=== PATIENT | female | born 1950 | race African-American/Black ===

== ENCOUNTER 2016-06-21 07:49 | Inpatient (IN) | payer MEDICARE, BC, OTHER ==
[2016-06-21] VITALS (24 sets, daily range): BP systolic 49–195; BP diastolic 28–153; PULSE 78–118; RESP 16–20; TEMP 94.1–98.1; O2SAT 70–100
[~2016-06-21] VITALS: Ht 157.5 cm; Wt 93.8 kg
[~2016-06-21 07:49] MED LIST: BENZ2 PO; ESTR0.62 PV; GABA400C5 PO; MOBI15TA PO; SODIUM BICARBONATE 8.4% INJ 50 MEQ/50 ML SYR IV ONE; TRAZ100 PO; ZYPR15TA PO
[2016-06-21] MEDS ORDERED: SODIUM CHLOR 0.9% 1000 ML INJ 1,000 ML IV ONE ×2 (08:00→09:15)
[2016-06-21] MEDS ORDERED: SODIUM CHLORIDE 0.9% FLUSH 5 ML FLUSH IVF PRN (08:00)
--- NOTE | 2016-06-21 08:05 | PD ---
HPI Chief Complaint: Code Blue Time Seen by Provider: 07:52 Travel History International Travel<30 days: No Contact w/Intl Traveler<30days: No Traveled to known affect area: No History of Present Illness HPI 65-year-old female presents to the ER brought in by EMS as a post code. Apparently, patient was found unresponsive by family, CPR initiated by family, and EMS arrived and continued CPR. After 2 rounds of epi and CPR, patient regained a pulse and has a sinus rhythm. She was intubated by EMS. Down time is unknown. Initial rhythm was asystole. Patient is unable to give me any further history, intubated. Family had stated that she has psychiatric history. Modifying Factors: None Associated Signs & Symptoms: Asystolic code, intubated Risk Factors: Unknown PFSH Past Medical History Bipolar Disorder: Yes Psychiatric: Yes Menopausal: Yes : 0 Social History Alcohol Use: Yes (2 x a week) Tobacco Use: No Substance Use: No Allergies-Medications (Allergen,Severity, Reaction): Coded Allergies: No Known Allergies (Verified , 11/05/13) Reported Meds & Prescriptions Reported Meds & Active Scripts Active Active Prescriptions or Reported Medications Unobtainable Review of Systems ROS Limitations: Intubated (unable to give history) Physical Exam Narrative GENERAL: Elderly -[place] female who is intubated, unresponsive, post CPR. SKIN: Warm and dry. HEAD: Atraumatic. Normocephalic. EYES: Pupils equal and round, not reactive to light bilaterally. No scleral icterus. No injection or drainage. ENT: No nasal bleeding or discharge. Mucous membranes pink and moist. Intubated. NECK: Trachea midline. No JVD. CARDIOVASCULAR: Regular rate and rhythm. No murmur appreciated. RESPIRATORY: On ventilator. Clear to auscultation. Breath sounds equal bilaterally. GASTROINTESTINAL: Abdomen soft, non-tender, nondistended. Hepatic and splenic margins not palpable. MUSCULOSKELETAL: No obvious deformities. No clubbing. No cyanosis. No edema. NEUROLOGICAL: Unresponsive, intubated. PSYCHIATRIC: Unable to perform. Data Data Last Documented VS Vital Signs Date Time Temp Pulse Resp B/P Pulse Ox O2 Delivery O2 Flow Rate FiO2 06/21/16 09:15 88 16 68/46 100 Auto-Vent 70 06/21/16 07:49 97.7 Orders Electrocardiogram (06/21/16 07:52) Complete Blood Count With Diff (06/21/16 07:52) Comprehensive Metabolic Panel (06/21/16 07:52) Prothrombin Time / Inr (Pt) (06/21/16:52) Act Partial Throm Time (Ptt) (06/21/16 07:52) Troponin I (06/21/16 07:52) Urinalysis - C+S If Indicated (06/21/16 07:52) Arterial Blood Gas (Abg) (06/21/16 07:52) Chest, Single Ap (06/21/16 07:52) Blood Glucose (06/21/16:52) Ecg Monitoring (06/21/16:52) Iv Access Insert/Monitor (06/21/16:52) Oximetry (06/21/16:52) Urinary Catheter Insert/Apply (06/21/16 07:52) Sodium Chloride 0.9% Flush (Ns Flush) (06/21/16 08:00) Drug Screen, Random Urine (06/21/16 07:52) Alcohol (Ethanol) (06/21/16 07:52) Sodium Chlor 0.9% 1000 Ml Inj (Ns 1000 M (06/21/16 08:00) Salicylates (Aspirin) (06/21/16 08:05) Ct Brain W/O Iv Contrast(Rout) (06/21/16 ) Tylenol (Acetaminophen) (06/21/16 08:00) Sodium Chlor 0.9% 1000 Ml Inj (Ns 1000 M (06/21/16 09:15) Dopamine Inj Premix (Dopamine Inj Premix (06/21/16 09:15) Terbutaline Inj (Brethine Inj) (06/21/16 09:15) Water Sterile For I... W/Sodium Bicarbon (06/21/16 09:15) Sodium Bicarbonate 8.4% Inj (Sodium Bica (06/21/16 09:30) Sodium Bicarbonate 8.4% Inj (Sodium Bica (06/21/16 09:30) Sodium Bicarbonate 8.4% Inj (Sodium Bica (06/21/16 09:30) Restraints Non-Violent AGGIE.Q3H (06/21/16 09:23) Admit Order (Ed Use Only) (06/21/16 09:26) Labs Laboratory Tests Test 06/21/16 06/21/16 08:00 08:15 White Blood Count 10.2 TH/MM3 Red Blood Count 3.42 MIL/MM3 Hemoglobin 10.1 GM/DL Hematocrit 30.9 % Mean Corpuscular Volume 90.5 FL Mean Corpuscular Hemoglobin 29.6 PG Mean Corpuscular Hemoglobin 32.7 % Concent Red Cell Distribution Width 13.9 % Platelet Count 288 TH/MM3 Mean Platelet Volume 8.3 FL Neutrophils (%) (Auto) 58.9 % Lymphocytes (%) (Auto) 35.0 % Monocytes (%) (Auto) 4.1 % Eosinophils (%) (Auto) 1.6 % Basophils (%) (Auto) 0.4 % Neutrophils # (Auto) 6.0 TH/MM3 Lymphocytes # (Auto) 3.6 TH/MM3 Monocytes # (Auto) 0.4 TH/MM3 Eosinophils # (Auto) 0.2 TH/MM3 Basophils # (Auto) 0.0 TH/MM3 CBC Comment AUTO DIFF Differential Comment AUTO DIFF CONFIRMED Prothrombin Time 12.0 SEC Prothromb Time International 1.1 RATIO Ratio Activated Partial 31.3 SEC Thromboplast Time Sodium Level 145 MEQ/L Potassium Level 3.9 MEQ/L Chloride Level 109 MEQ/L Carbon Dioxide Level 15.8 MEQ/L Anion Gap 20 MEQ/L Blood Urea Nitrogen 13 MG/DL Creatinine 1.25 MG/DL Estimat Glomerular Filtration 52 ML/MIN Rate Random Glucose 247 MG/DL Calcium Level 8.2 MG/DL Total Bilirubin 0.2 MG/DL Aspartate Amino Transf 492 U/L (AST/SGOT) Alanine Aminotransferase 508 U/L (ALT/SGPT) Alkaline Phosphatase 59 U/L Troponin I 0.16 NG/ML Total Protein 5.8 GM/DL Albumin 2.4 GM/DL Salicylates Level LESS THAN 1.7 MG/DL Acetaminophen Level 2.8 MCG/ML Ethyl Alcohol Level LESS THAN 3 MG/DL Urine Color LIGHT-YELLOW Urine Turbidity CLEAR Urine pH 7.0 Urine Specific [place] 1.010 Urine Protein 300 mg/dL Urine Glucose (UA) NEG mg/dL Urine Ketones NEG mg/dL Urine Occult Blood SMALL Urine Nitrite NEG Urine Bilirubin NEG Urine Urobilinogen LESS THAN 2.0 MG/DL Urine Leukocyte Esterase NEG Urine RBC 5 /hpf Urine WBC 2 /hpf Urine Bacteria RARE /hpf Urine Hyaline Casts 1 /lpf Urine Mucus FEW /lpf Microscopic Urinalysis Comment CULT NOT INDICATED Blood Gas Puncture Site LT RADIAL Blood Gas Patient Temperature 98.6 Blood Gas HCO3 14 mmol/L Blood Gas Base Excess -13.6 mmol/L Blood Gas Oxygen Saturation 98 % Arterial Blood pH 7.14 Arterial Blood Partial 43 mmHg Pressure CO2 Arterial Blood Partial 180 mmHG Pressure O2 Arterial Blood Oxygen Content 13.0 Vol % Arterial Blood 0.2 % Carboxyhemoglobin Arterial Blood Methemoglobin 0.2 % Blood Gas Hemoglobin 9.1 G/DL Oxygen Delivery Device VENTILATOR Blood Gas Ventilator Setting PRVC/AC Blood Gas Inspired Oxygen 70 % Urine Opiates Screen NEG Urine Barbiturates Screen NEG Urine Amphetamines Screen NEG Urine Benzodiazepines Screen NEG Urine Cocaine Screen NEG Urine Cannabinoids Screen NEG MDM Medical Decision Making Medical Screen Exam Complete: Yes Emergency Medical Condition: Yes Medical Record Reviewed: Yes Interpretation(s) EKG shows NSR, no acute ST elevation or depression, and no arrhythmias. No significant T-wave inversions. Laboratory Tests Test 06/21/16 06/21/16 08:00 08:15 Red Blood Count 3.42 MIL/MM3 (4.00-5.30) Hemoglobin 10.1 GM/DL (11.6-15.3) Hematocrit 30.9 % (35.0-46.0) Prothrombin Time 12.0 SEC (9.8-11.6) Activated Partial 31.3 SEC Thromboplast Time (24.3-30.1) Chloride Level 109 MEQ/L (98-107) Carbon Dioxide Level 15.8 MEQ/L (21.0-32.0) Anion Gap 20 MEQ/L (5-15) Creatinine 1.25 MG/DL (0.50-1.00) Estimat Glomerular Filtration 52 ML/MIN (>89) Rate Random Glucose 247 MG/DL (74-106) Calcium Level 8.2 MG/DL (8.5-10.1) Aspartate Amino Transf 492 U/L (15-37) (AST/SGOT) Alanine Aminotransferase 508 U/L (10-53) (ALT/SGPT) Troponin I 0.16 NG/ML (0.02-0.05) Total Protein 5.8 GM/DL (6.4-8.2) Albumin 2.4 GM/DL (3.4-5.0) Salicylates Level LESS THAN 1.7 MG/DL (2.8-20.0) Acetaminophen Level 2.8 MCG/ML (10.0-30.0) Urine Protein 300 mg/dL (NEG-TRACE) Urine Occult Blood SMALL (NEG) Urine RBC 5 /hpf (0-3) Urine Bacteria RARE /hpf (NONE) Urine Mucus FEW /lpf (OCC) Blood Gas HCO3 14 mmol/L (22-26) Blood Gas Base Excess -13.6 mmol/L (-2-2) Arterial Blood pH 7.14 (7.380-7.420) Arterial Blood Partial 43 mmHg (38-42) Pressure CO2 Arterial Blood Partial 180 mmHG Pressure O2 (61-120) Blood Gas Hemoglobin 9.1 G/DL (12.0-16.0) Last 24 hours Impressions Chest X-Ray 06/21/16 0752 Signed Impressions: Service Date/Time: Tuesday, June 21, 2016 07:55 - CONCLUSION: Perihilar interstitial/alveolar prominence. Mild air space disease left lung base. Satisfactory position of endotracheal and nasogastric tubes. Avila Lake MD Differential Diagnosis Asystolic codeelectrolyte abnormalities versus dysrhythmias versus overdose Narrative Course Lab work indicates significant acidosis and it appears to be metabolic, several amps of IV bicarbonate was given. Her blood pressure was fairly low in the ER and boluses of IV fluids were initiated. Dopamine was given to help increase her blood pressure. Chest x-ray shows that her ET tube is in place. Lab work otherwise shows elevated troponins, likely secondary to post code situation. Patient was initially discussed with Dr. Alcaraz for admission. However, Patient' s CAT scan returns showing intracranial bleeding. And neurosurgery was called regarding the patient. Case is then discussed with PA for Dr. Matamoros, who is currently in the OR, and they state they will follow. I have discussed the patient's finding at length with family, patient's aunt, who is in the room to see her. I have discussed the critical nature of the patient currently and patients and states understanding. Aggregate critical care time was 35 minutes. Time to perform other separately billable procedures was not included in the critical care time. My time did not include minutes spent treating any other patients simultaneously or on activities that did not directly contribute to the patient's treatment. The services I provided to this patient were to treat and/or prevent clinically significant deterioration that could result in: Cardiac arrest, intracranial hemorrhage, herniation, I provided critical care services requiring my management, as noted below: Chart data review, documentation time, medication orders and management, vital sign assessments/reviewing monitor data, ordering and reviewing lab tests, ordering and interpreting/reviewing x-rays and diagnostic studies, care of the patient and discussion of the patient with the admitting physicians. Procedures EKG Prior to Arrival: Yes Diagnosis Primary Impression: NONTRAUMATIC INTRACRANIAL HEMORRHAGE, UNSPECIFIED Additional Impression: Cardiac asystole Admitting Information Admitting Physician Requests: Admit Scripts Unable to Obtain Active Prescriptions or Reported Meds Steph Win MD Jun 21, 2016 08:05
[2016-06-21 08:18] LABS: BASOPHIL % 0.4 % (0.0-2.0); EOSINOPHIL # 0.2 TH/MM3 (0-0.4); EOSINOPHIL % 1.6 % (0.0-4.0); HEMATOCRIT 30.9 % (35.0-46.0); LYMPHOCYTE # 3.6 TH/MM3 (1.0-4.8); MEAN CELL VOLUME 90.5 FL (80.0-100.0); MEAN CORPUSCULAR HEMOGLOBIN 29.6 PG (27.0-34.0); MEAN CORPUSCULAR HGB CONC 32.7 % (32.0-36.0); MONO % 4.1 % (0.0-8.0); NEUT % 58.9 % (16.0-70.0); PLATELET COUNT 288 TH/MM3 (150-450); RED BLOOD COUNT 3.42 MIL/MM3 (4.00-5.30); RED CELL DISTRIBUTION WIDTH 13.9 % (11.6-17.2); WHITE BLOOD COUNT 10.2 TH/MM3 (4.0-11.0)
[2016-06-21 08:22] LABS: HEMO FLAGS AUTO DIFF
[2016-06-21 08:28] LABS: BLOOD GAS BASE EXCESS -13.6 mmol/L (-2-2); BLOOD GAS CARBOXYHEMOGLOBIN 0.2 % (0-4); BLOOD GAS HCO3 14 mmol/L (22-26); BLOOD GAS METHEMOGLOBIN 0.2 % (0-2); BLOOD GAS O2 HGB SATURATION 98 % (90-100); BLOOD GAS PCO2 43 mmHg (38-42); BLOOD GAS PO2 180 mmHG (61-120); BLOOD GAS TOTAL HGB 9.1 G/DL (12.0-16.0); TEMP CORR TO 98.6
[2016-06-21 08:29] LABS: CRITICAL VALUE YES; DRAW SITE LT RADIAL; FIO2 70 %; NUMBER OF ARTERIAL PUNCTURES 1; OXYGEN DEVICE VENTILATOR; STAT YES; ULNAR PULSE PRESENT; VENT SETTINGS PRVC/AC
[2016-06-21 08:31] LABS: ALT (GPT) 508 U/L (10-53); ANION GAP 20 MEQ/L (5-15); AST (GOT) 492 U/L (15-37); BICARBONATE 15.8 MEQ/L (21.0-32.0); BLOOD UREA NITROGEN 13 MG/DL (7-18); CHLORIDE 109 MEQ/L (98-107); GLOMERULAR FILTRATION RATE 52 ML/MIN (>89); POTASSIUM 3.9 MEQ/L (3.5-5.1); SODIUM (NA) 145 MEQ/L (136-145)
--- NOTE | 2016-06-21 08:32 | RADRPT ---
EXAM DATE/TIME: 06/21/2016 07:55 [facility] COMPARISON: CHEST SINGLE AP, November 05, 2013, 16:34. INDICATIONS : Post intubation. MEDICAL HISTORY : unobtainable SURGICAL HISTORY : unobtainable ENCOUNTER: Initial ACUITY: 1 day PAIN SCORE: Non-responsive. LOCATION: chest FINDINGS: Endotracheal and nasogastric tubes have been inserted and appear to be in satisfactory position. There is perihilar interstitial and alveolar prominence. Developing airspace disease is seen in the l eft base. Heart is normal in size. CONCLUSION: Perihilar interstitial/alveolar prominence. Mild air space disease left lung base. Satisfactory position of endotracheal and nasogastric tubes. Avila Lake MD on June 21, 2016 at 8:29 Board Certified Radiologist. This report was verified electronically.
[2016-06-21 08:33] LABS: APTT (PATIENT) 31.3 SEC (24.3-30.1); INTERNATIONAL NORMALIZED RATIO 1.1 RATIO
[2016-06-21 08:35] LABS: ALKALINE PHOSPHATASE 59 U/L (45-117); TOTAL BILIRUBIN ADULT 0.2 MG/DL (0.2-1.0)
[2016-06-21 08:44] LABS: ACETAMINOPHEN 2.8 MCG/ML (10.0-30.0)
[2016-06-21 08:48] LABS: BACTERIA, URINE RARE /hpf; BLOOD, URINE SMALL (NEG); GLUCOSE,URINE NEG (NEG); HYALINE CAST, URINE 1 /lpf (RARE); KETONE, URINE NEG (NEG); MUCUS URINE FEW /lpf (OCC); NITRITE,URINE NEG (NEG); URINE COLOR LIGHT-YELLOW (YELLW/STRAW)
[2016-06-21 08:55] LABS: SCAN/DIFF AUTO DIFF CONFIRMED
[2016-06-21 08:57] LABS: COMMENT (UR) CULT NOT INDICATED; CULTURE IF INDICATED CULT NOT INDICATED
--- NOTE | 2016-06-21 09:11 | RADRPT ---
EXAM DATE/TIME: 06/21/2016 08:39 [facility] COMPARISON: No previous studies available for comparison. INDICATIONS : Post-code. RADIATION DOSE: 45.51 CTDIvol (mGy) MEDICAL HISTORY : Non-responsive. SURGICAL HISTORY : Non-responsive. ENCOUNTER: Initial ACUITY: 1 day PAIN SCALE: Non-responsive LOCATION: cranial TECHNIQUE: Multiple contiguous axial images were obtained of the head. Using automated exposure control and adj ustment of the mA and/or kV according to patient size, radiation dose was kept as low as reasonably a chievable to obtain optimal diagnostic quality images. FINDINGS: There is an acute proximal hemorrhage in the left side of the cerebellum that measures 3 x 5.2 cm in size. There is a large amount of subarachnoid blood in the posterior fossa and also supratentorial at the skull base. Large amount of subarachnoid blood seen between the leaves of the tentorium and also the leads of the falx. There is about 9 mm of rightward cerebellar shift and with mass effect seen o n the brainstem. Supratentorial, no significant midline shift is demonstrated. The left cerebellar hemorrhage is somewhat masslike. No other evidence of mass lesion. No eviden ce of an acute ischemic event. Mucoperiosteal thickening seen of the visualized paranasal sinuses. CONCLUSION: Large parenchymal hemorrhage of the left cerebellar hemisphere with midline shift and mass effect on the brainstem. There is a large amount of posterior fossa and supratentorial subarachnoid blood. Deondre Coronado MD on June 21, 2016 at 9:06 Board Certified Radiologist. This report was verified electronically.
[2016-06-21] MEDS ORDERED: TERBUTALINE INJ 1 MG/ML AMP SQ PRN ×2 (09:15→10:15)
[2016-06-21] MEDS ORDERED: DOPamine INJ PREMIX 500 ML IV SCH (09:15)
[2016-06-21] MEDS ORDERED: SODIUM BICARBONATE 8.4% INJ 50 MEQ/50 ML SYR IV PUSH ONE ×3 (09:30)
[2016-06-21 09:33] LABS: AMPHETAMINE, URINE NEG (NEG); BARBITURATES, URINE NEG (NEG); COCAINE, URINE NEG (NEG)
[2016-06-21] MEDS: SODIUM BICARBONATE 8.4% INJ 150 MEQ in WATER STERILE FOR INJ 850 ML IV SCH ×2 (09:39→15:55)
[2016-06-21] MEDS ORDERED: SODIUM CHLORIDE 0.9% FLUSH 5 ML FLUSH IV FLUSH PRN (10:00)
[2016-06-21] MEDS ORDERED: CHLORHEXIDINE GLUCONATE 2 % 1 PACK (2 CLOTHS) TOP PRN (10:00)
[2016-06-21] MEDS ORDERED: RESP: ALBUTEROL 2.5 MG/IPRATROPIUM 0.5 MG NEB (PRN) INH (10:00)
[2016-06-21] MEDS ORDERED: ACETAMINOPHEN 325 MG TAB PO PRN (10:00)
[2016-06-21] MEDS ORDERED: METOCLOPRAMIDE HCL 10 MG/2 ML VIAL IV PRN (10:00)
[2016-06-21] MEDS: DOCUSATE SODIUM 100 MG/10 ML UDC G-TUBE SCH ×2 (10:00→19:38)
[2016-06-21] MEDS ORDERED: ONDANSETRON HCL 4 MG/2 ML VIAL IV PRN (10:00)
[2016-06-21] MEDS ORDERED: MORPHINE SULFATE 4 MG/ML INJ IV PRN (10:00)
[2016-06-21] MEDS ORDERED: LORazepam 2 MG/ML VIAL IV PRN (10:00)
[2016-06-21] MEDS ORDERED: MISCELLANEOUS NURSING INFORMATION XX SCH (10:00)
--- NOTE | 2016-06-21 10:08 | PD.CONS ---
HPI Service neurosurgery Consult Requested By Irene Gallegos Reason for Consult Intracerebral bleed Primary Care Physician Gurwinder Lindo III, MD Review of Systems Not possible due to the patient's condition ROS Limitations: Clinical Condition, Intubated, Altered Mental Status, Unresponsive Past Family Social History Allergies: Coded Allergies: No Known Allergies (Verified , 11/05/13) Past Medical History Unobtainable Past Surgical History Unobtainable due to her condition Reported Medications Unobtainable due to her condition Active Ordered Medications Current Medications IV Flush 2 ml 2 ml UNSCH PRN IVF FLUSH AFTER USING IV ACCESS; Start 06/21/16 at 08:00; Stop 06/21/16 at 14:04; Status DC Sodium Chloride 1,000 ml @ 999 mls/hr BOLUS ONCE IV Last administered on 06/21 08:20; Start 06/21/16 at 08:00; Stop 06/21/16 at 09:00; Status DC Sodium Chloride 1,000 ml @ 999 mls/hr BOLUS ONCE IV Last administered on 06/21 09:11; Start 06/21/16 at 09:15; Stop 06/21/16 at 10:17; Status DC Dopamine HCl/ Dextrose (DOPamine INJ PREMIX) 500 ml @ 0 mls/hr TITRATE IV Last administered on 06/21/16 09:10; Start 06/21/16 at 09:15; Stop 06/21/16 at 14:04 ; Status DC Terbutaline Sulfate 1 mg 1 mg UNSCH PRN SQ For Extravasation; Start 06/21/16 at 09:15 Sodium Bicarbonate/ Sterile Water (Sodium Bicarbonate 8.4% Inj/Sterile Water For Inj) 1,000 ml @ 150 mls/hr Q6H40M IV Last administered on 06/21/16 09:39 ; Start 06/21/16 at 09:15 Sodium Bicarbonate (Sodium Bicarbonate 8.4% Inj) 50 meq ONCE ONCE IV PUSH Last administered on 06/21/16 09:40; Start 06/21/16 at 09:30; Stop 06/21/16 at 09:31; Status DC Sodium Bicarbonate (Sodium Bicarbonate 8.4% Inj) 50 meq ONCE ONCE IV PUSH Last administered on 06/21/16 09:40; Start 06/21/16 at 09:30; Stop 06/21/16 at 09:31; Status DC Sodium Bicarbonate 50 meq 50 meq ONCE ONCE IV PUSH Last administered on 09:40; Start 06/21/16 at 09:30; Stop 06/21/16 at 09:31; Status DC Sodium Chloride (NS 1000 ml Inj) 1,000 ml @ 185 mls/hr Q5H25M IV Last administered on 06/21/16 11:16; Start 06/21/16 at 09:56 IV Flush (NS Flush) 2 ml UNSCH PRN IV FLUSH FLUSH AFTER USING IV ACCESS; Start 06/21/16 at 10:00 IV Flush (NS Flush) 2 ml BID IV FLUSH ; Start 06/21/16 at 21:00 Acetaminophen (Tylenol) 650 mg Q6H PRN PO PAIN 1-10 AND/OR FEVER >101F; Start 06/21/16 at 10:00 Morphine Sulfate (Morphine Inj) 2 mg Q2H PRN IV PAIN SCALE 6 TO 10; Start 06/21 at 10:00 Famotidine (Pepcid Inj) 20 mg Q12HR IV PUSH ; Start 06/21/16 at 21:00 Lorazepam (Ativan Inj) 1 mg Q1H PRN IV Agitation/Sedation; Start 06/21/16 at 10 :00 Artificial Tears (Tears Naturale Opth Soln) 1 drop TID EACH EYE ; Start at 13:00 Ondansetron HCl (Zofran Inj) 4 mg Q6H PRN IV NAUSEA OR VOMITING; Start at 10:00 Metoclopramide HCl (Reglan Inj) 10 mg Q6H PRN IV NAUSEA OR VOMITING; Start 01/28 at 10:00 Docusate Sodium (Colace Liq) 100 mg Q12H G-TUBE ; Start 06/21/16 at 10:00 Albuterol/ Ipratropium (Duoneb Neb) 1 ampule Q2HR NEB PRN INH WHEEZING; Start 06/21/16 at 10:00 Miscellaneous Information 1 Q361D XX ; Start 06/21/16 at 10:00 Chlorhexidine Gluconate (Chlorhexidine 2% Cloth) 3 pack Taper DAILY@04 TOP ; Start 06/22/16 at 04:00; Stop 06/18/17 at 03:59 Chlorhexidine Gluconate 3 pack 3 pack UNSCH PRN TOP HYGIENIC CARE; Start at 10:00 Dopamine HCl/ Dextrose (DOPamine INJ PREMIX) 500 ml @ 0 mls/hr TITRATE IV ; Start 06/21/16 at 10:15 Terbutaline Sulfate 1 mg 1 mg UNSCH PRN SQ For Extravasation; Start 06/21/16 at 10:15 Mannitol (Osmitrol Inj) 450 ml @ 500 mls/hr Q54M ONCE IV Last administered on 06/21/16t 13:37; Start 06/21/16 at 13:30; Stop 06/21/16 at 14:23; Status DC Family History Unobtainable due to her condition Social History Unobtainable due to her condition Physical Exam Vital Signs Vital Signs Date Time Temp Pulse Resp B/P Pulse Ox O2 Delivery O2 Flow Rate FiO2 06/21/16 09:55 101 16 108/58 100 Auto-Vent 70 06/21/16 09:41 107 16 92/67 100 Auto-Vent 70 06/21/16 09:15 88 16 68/46 100 Auto-Vent 70 06/21/16 08:45 94 16 63/40 100 Auto-Vent 70 06/21/16 08:40 100 16 74/48 100 Auto-Vent 70 06/21/16 08:35 101 16 69/42 100 Auto-Vent 70 06/21/16 08:30 100 100 06/21/16 08:18 105 16 73/42 100 Auto-Vent 70 06/21/16 08:02 96 70 06/21/16 07:49 94 Auto-Vent 06/21/16 07:49 97.7 89 18 49/28 94 06/21/16 07:49 93 18 94 Auto-Vent 06/21/16 07:49 98 18 54/33 94 Auto-Vent 06/21/16 07:49 70 Physical Exam The patient is intubated,. No response to painful stimuli Cranial Nerves: Pupils equal, round, 6mm dilated and fixed. Eyes appear non- conjugated. There was no nystagmus, papilledema. Face musculature appeared symmetrical at rest. Face sensation, olfaction, visual lane, and hearing cannot be adequately assessed due to his neurological condition. The patient has no corneal reflex. She has no gag reflex. The sternocleidomastoid and trapezius are symmetrical. Cervical Spine: Her neck is soft, supple, without nuchal rigidity. Motor: No response to pain Reflexes: Deep tendon reflexes are abolished in the biceps, triceps, and brachioradialis, bilaterally, in the upper extremities. In the lower extremities, the patellar and ankles are absent bilaterally. There is a bilateral silent plantar response. There is no clonus Sensory: On examination there is no response to painful stimuli Cerebellar: Examination cannot be adequately assessed due to the patient's neurological condition. Laboratory Laboratory Tests Test 06/21/16 06/21/16 08:00 08:15 White Blood Count 10.2 Red Blood Count 3.42 Hemoglobin 10.1 Hematocrit 30.9 Mean Corpuscular Volume 90.5 Mean Corpuscular Hemoglobin 29.6 Mean Corpuscular Hemoglobin 32.7 Concent Red Cell Distribution Width 13.9 Platelet Count 288 Mean Platelet Volume 8.3 Neutrophils (%) (Auto) 58.9 Lymphocytes (%) (Auto) 35.0 Monocytes (%) (Auto) 4.1 Eosinophils (%) (Auto) 1.6 Basophils (%) (Auto) 0.4 Neutrophils # (Auto) 6.0 Lymphocytes # (Auto) 3.6 Monocytes # (Auto) 0.4 Eosinophils # (Auto) 0.2 Basophils # (Auto) 0.0 CBC Comment AUTO DIFF Differential Comment AUTO DIFF CONFIRMED Prothrombin Time 12.0 Prothromb Time International 1.1 Ratio Activated Partial 31.3 Thromboplast Time Sodium Level 145 Potassium Level 3.9 Chloride Level 109 Carbon Dioxide Level 15.8 Anion Gap 20 Blood Urea Nitrogen 13 Creatinine 1.25 Estimat Glomerular Filtration 52 Rate Random Glucose 247 Calcium Level 8.2 Total Bilirubin 0.2 Aspartate Amino Transf 492 (AST/SGOT) Alanine Aminotransferase 508 (ALT/SGPT) Alkaline Phosphatase 59 Troponin I 0.16 Total Protein 5.8 Albumin 2.4 Salicylates Level LESS THAN 1.7 Acetaminophen Level 2.8 Ethyl Alcohol Level LESS THAN 3 Urine Color LIGHT-YELLOW Urine Turbidity CLEAR Urine pH 7.0 Urine Specific [place] 1.010 Urine Protein 300 Urine Glucose (UA) NEG Urine Ketones NEG Urine Occult Blood SMALL Urine Nitrite NEG Urine Bilirubin NEG Urine Urobilinogen LESS THAN 2.0 Urine Leukocyte Esterase NEG Urine RBC 5 Urine WBC 2 Urine Bacteria RARE Urine Hyaline Casts 1 Urine Mucus FEW Microscopic Urinalysis Comment CULT NOT INDICATED Blood Gas Puncture Site LT RADIAL Blood Gas Patient Temperature 98.6 Blood Gas HCO3 14 Blood Gas Base Excess -13.6 Blood Gas Oxygen Saturation 98 Arterial Blood pH 7.14 Arterial Blood Partial 43 Pressure CO2 Arterial Blood Partial 180 Pressure O2 Arterial Blood Oxygen Content 13.0 Arterial Blood 0.2 Carboxyhemoglobin Arterial Blood Methemoglobin 0.2 Blood Gas Hemoglobin 9.1 Oxygen Delivery Device VENTILATOR Blood Gas Ventilator Setting PRVC/AC Blood Gas Inspired Oxygen 70 Urine Opiates Screen NEG Urine Barbiturates Screen NEG Urine Amphetamines Screen NEG Urine Benzodiazepines Screen NEG Urine Cocaine Screen NEG Urine Cannabinoids Screen NEG Result Diagram: 06/21/16 0800 06/21/16 0800 Imaging Last Impressions Chest X-Ray 06/21/16 0752 Signed Impressions: Service Date/Time: Tuesday, June 21, 2016 07:55 - CONCLUSION: Perihilar interstitial/alveolar prominence. Mild air space disease left lung base. Satisfactory position of endotracheal and nasogastric tubes. Avila Lake MD Head CT 06/21/16 0000 Signed Impressions: Service Date/Time: Tuesday, June 21, 2016 08:39 - CONCLUSION: Large parenchymal hemorrhage of the left cerebellar hemisphere with midline shift and mass effect on the brainstem. There is a large amount of posterior fossa and supratentorial subarachnoid blood. Deondre Coronado MD Attending Statement I have reviewed her clinical and further studies. Start neuro checks in a serial fashion. Placement of an ICP monitor is no indicated. She does not have any clinical signs of brainstem function. She has suffer severe's posterior fossa hemorrhage. In addition she has no sick encephalopathy. I discussed extensively with her family. In my opinion there is no chances of remaining full recover. A surgical intervention is not appropriate. Palliative care consult Respiratory failure. Full mechanical ventilation in assist control mode of ventilation, pulmonary toilette, nasotracheal suction, and breathing treatments with nebulizers. PT and OT eval Nutrition. NPO Renal. monitor closely urine output, BUN and creatinine Endocrine. Monitor serial Acu checks and SSI for tight control ID monitor for signs of infection Protonix for stress ulcer prophylaxis Nikita townsend and SCD's for DVT prophylaxis Quentin Matamoros MD Jun 21, 2016 10:08
--- NOTE | 2016-06-21 10:32 | RADRPT ---
EXAM DATE/TIME: 06/21/2016 10:03 [facility] COMPARISON: CHEST SINGLE AP, June 21, 2016, 7:55. INDICATIONS : Central line Placement MEDICAL HISTORY : Un-obtainable SURGICAL HISTORY : Un-obtainable ENCOUNTER: Initial ACUITY: 1 day PAIN SCORE: Non-responsive. LOCATION: Bilateral chest FINDINGS: Bilateral airspace consolidation again seen, mainly perihilar on the right and upper lobe on the left , but aside slightly worse. No pleural effusion demonstrated. No pneumothorax. Heart size stable, wit hin normal limits. Right subclavian central venous catheter has been placed, tip in the superior vena cava. Endotracheal tube tip is about 3 cm above the eric. Nasogastric tube tip is in the stomach. CONCLUSION: 1. New right subclavian central venous catheter with tip in the superior vena cava. No pneumothorax o r other acute complication demonstrated. 2. Other lines and tubes unchanged as above. 3. Bilateral infiltrates are modestly worse. Deondre Coronado MD on June 21, 2016 at 10:30 Board Certified Radiologist. This report was verified electronically.
[2016-06-21] MEDS: SODIUM CHLOR 0.9% 1000 ML INJ 1,000 ML IV SCH ×3 (11:16→19:42)
[2016-06-21] MEDS: ARTIFICIAL TEARS OPTH SOLN 15 ML BTL EACH EYE SCH ×2 (13:00→15:57)
[2016-06-21] MEDS ORDERED: MANNITOL IV ONE (13:30)
--- NOTE | 2016-06-21 14:33 | PD.CONS ---
Consult Service Palliative Care Consult Requested By Dr. Alcaraz . Primary Care Physician Gurwinder Lindo III, MD . Reason for Consultation a. To assist with evaluation and management of symptoms including: Encephalopathy, possible pain b. To assist medical decision maker(s) with: better understanding of current medical conditions; weighing benefits/burdens of medical treatment options; making medical treatment decisions. . HPI History of Present Illness This 65-year-old female, with underlying schizophrenia and chronic knee pain, was found on the floor and cardiac arrest at home by her mother. The patient's mother and aunt report that the patient had not had any change in her usual health recently other than some weight cane over the past year or 2. She had difficulty getting around because of chronic knee pain/arthritis, but had had no recent change in mental status. The amount of downtime on the floor prior to being found is unknown and cannot be known, as the mother found the patient after the mother got out of bed this morning. The patient's aunt is present this week from [place], and she initiated CPR and called 911. Paramedics arrived to find the patient in asystole, but continued resuscitation efforts with intubation and 2 rounds of medication, then obtaining a return of spontaneous circulation. The patient remained unresponsive and was brought to the emergency department. Findings in the emergency department included: * Unresponsive * Temp 97.7, pulse 88, respirations 16 with the ventilator, blood pressure 68/46 * White count 10.2, hemoglobin 10.1 * Sodium 145, creatinine 1.25, albumin 2.4 * Troponin 0.16 * Initial ABG included pH 7.14 * Urine drug screen negative * Chest x-ray with bilateral infiltrates * CT brain scan with hemorrhage, including a large amount of subarachnoid blood , and a 3 x 5.2 cm left cerebellar hemorrhage, possibly a mass. There was a 9 mm left to right shift of the cerebellum, with mass effect on the brainstem. In the emergency department, the patient was placed on dopamine because of the persistent hypotension. She has remained completely unresponsive. The patient's maternal aunt, Renée Duff, is in town from [place] and staying at the patient's home with the patient's mother, and she is helpful in discussing the medical issues and choices with the patient's elderly mother. Palliative Care was consulted to assist with symptom management, and to enter into discussions with the patient's mother and aunt regarding the severity of the current condition, the prognosis, and the benefits and burdens of the various treatment options. . Function/Cognitive Trajectory The patient has had some functional decline over the past couple years, as she has reportedly gained significant weight and has ongoing challenges with her knees. She recently had "fluid drained and steroids put in there" to try to help with the knee pain. . Review of Systems ROS Limitations: Unresponsive (history is as per the patient's mother) Constitutional: COMPLAINS OF: Weight gain Endocrine: DENIES: Polyuria Eyes: DENIES: Eye inflammation Ears, nose, mouth, throat: DENIES: Epistaxis Cardiovascular: DENIES: Chest pain Gastrointestinal: DENIES: Abdominal pain, Diarrhea, Vomiting Genitourinary: DENIES: Hematuria Musculoskeletal: DENIES: Joint Swelling Integumentary: DENIES: Rash Hematologic/Lymphatics: DENIES: Bruising Immunologic/Allergic: DENIES: Urticaria Neurologic: DENIES: Seizures Psychiatric: COMPLAINS OF: Hallucinations (in past years), Delusions (in past years) Past Family Social History Coded Allergies: No Known Allergies (Verified , 11/05/13) Past Medical History * Cerebellar and subarachnoid hemorrhage * 9 mm left to right shift of the cerebellum, with mass effect on brainstem * Cardiorespiratory arrest, cardiac resuscitation * Bilateral pulmonary infiltrates, suspected aspiration * Respiratory failure * Schizophrenia since age 17, currently being treated with periodic long-acting injections at a clinic locally * Chronic knee pain, arthritis . Past Surgical History No surgeries . Reported Medications Injection for her schizophrenia periodically at a local clinic . Current Medications Medications (Trade) Dose Ordered Sig/Gee Route Start Time Stop Time Status Last Admin Terbutaline Sulfate 1 mg 1 mg UNSCH PRN SQ 06/21/16 09:15 Sodium Bicarbonate 150 meq/Sterile Water 1,000 ml @ 150 mls/hr Q6H40M IV 06/21/16 09:15 06/21/16 09:39 (NS 1000 ml Inj) 1,000 ml @ 185 mls/hr Q5H25M IV 06/21/16 09:56 06/21/16 11:16 (NS Flush) 2 ml UNSCH PRN IV FLUSH 06/21/16 10:00 (NS Flush) 2 ml BID IV FLUSH 06/21/16 21:00 (Tylenol) 650 mg Q6H PRN PO 06/21/16 10:00 (Morphine Inj) 2 mg Q2H PRN IV 06/21/16 10:00 (Pepcid Inj) 20 mg Q12HR IV PUSH 06/21/16 21:00 (Ativan Inj) 1 mg Q1H PRN IV 06/21/16 10:00 (Tears Naturale Opth Soln) 1 drop TID EACH EYE 06/21/16 13:00 (Zofran Inj) 4 mg Q6H PRN IV 06/21/16 10:00 (Reglan Inj) 10 mg Q6H PRN IV 06/21/16 10:00 (Colace Liq) 100 mg Q12H G-TUBE 06/21/16 10:00 Miscellaneous Information 1 Q361D XX 06/21/16 10:00 (Chlorhexidine 2% Cloth) 3 pack Taper DAILY@04 TOP 06/22/16 04:00 06/18/17 03:59 Chlorhexidine Gluconate 3 pack 3 pack UNSCH PRN TOP 06/21/16 10:00 (DOPamine INJ PREMIX) 500 ml @ 0 mls/hr TITRATE IV 06/21/16 10:15 Terbutaline Sulfate 1 mg 1 mg UNSCH PRN SQ 06/21/16 10:15 (Osmitrol Inj) 450 ml @ 500 mls/hr Q54M ONCE IV 06/21/16 13:30 06/21/16 14:23 06/21/16 13:37 Family History The patient's mother is living, 85 years old, and debilitated from rheumatoid arthritis. The patient's father 3 years ago with end-stage renal disease, diabetes, and advanced dementia. The maternal grandfather and the paternal grandmother reportedly suffered intracranial hemorrhages. . Substance Use Tobacco: None. Alcohol: Rare. Prescription med abuse: None. Illicits: None. . Psychosocial History The patient was born in the [place] area, but moved to this area in 1977. She was diagnosed with schizophrenia at age 17, and has not been employed. She has been on disability for many years. She has never been , and has no children. She has 2 brothers, one living in [place], and one living in the same home with the patient and her mother. There are aunts, Renée Duff, is visiting from [place] at this time, and there was a plan for the entire family here to move back to [place] with Mrs. Duff so that they could be cared for there. . Spiritual/Cultural Factors The patient was a member and regular attendee of a [facility] [employer] locally. . Living Will: Never completed Health Care Surrogate: Never completed Durable Power of Grinder Set Up Operator Thread Tool: Never completed Family/friends goals: The patient's mother and her aunt Renée are in agreement that, when the patient suffers the next cardiac arrest, "we will let her go peacefully," with no further resuscitation. The patient's mother is not yet ready to address the idea of withdrawal of life support. Aunt Renée Duff is VERY HELPFUL in the discussions with her sister ( the patient's mother), as she has had experience in the healthcare field and with end-of-life situations in other family members. . Ethical and Legal Issues There are no ethical issues impacting her care or decision-making at this time. The patient lacks capacity for decision making, and she will not regain that capacity. The patient is unmarried and has no children, and her proxy decision maker is her mother. . Physical Exam Vital Signs Date Time Temp Pulse Resp B/P Pulse Ox O2 Delivery O2 Flow Rate FiO2 06/21/16 13:45 109 20 113/76 100 Auto-Vent 70 06/21/16 12:41 98 70 06/21/16 12:30 108 20 95/59 98 Auto-Vent 06/21/16 12:00 112 20 96/63 98 Auto-Vent 06/21/16 11:27 115 20 106/58 100 Auto-Vent 70 06/21/16 11:00 106 20 94/61 97 Auto-Vent 70 06/21/16 10:30 112 20 90/61 100 Auto-Vent 70 06/21/16 09:55 101 16 108/58 100 Auto-Vent 70 06/21/16 09:41 107 16 92/67 100 Auto-Vent 70 06/21/16 09:15 88 16 68/46 100 Auto-Vent 70 06/21/16 08:45 94 16 63/40 100 Auto-Vent 70 06/21/16 08:40 100 16 74/48 100 Auto-Vent 70 06/21/16 08:35 101 16 69/42 100 Auto-Vent 70 06/21/16 08:30 100 100 3/10/17 08:18 105 16 73/42 100 Auto-Vent 70 06/21/16 08:02 96 70 06/21/16 07:49 94 Auto-Vent 06/21/16 07:49 97.7 89 18 49/28 94 06/21/16 07:49 93 18 94 Auto-Vent 06/21/16 07:49 98 18 54/33 94 Auto-Vent 06/21/16 07:49 70 Exam CONSTITUTIONAL/GENERAL: This is an adequately nourished patient, in no apparent distress. TUBES/LINES/DRAINS: Left subclavian line, Jha catheter, ET tube SKIN: No jaundice, rashes, or lesions. Ecchymoses on upper extremities. No wounds seen anteriorly. Skin temperature appropriate. Not diaphoretic. HEAD: Atraumatic. Normocephalic. EYES: Pupils equal and round but I can see no reactivity with light. No scleral icterus. No injection or drainage. Fundi not examined. ENT: Unable to assess hearing due to her clinical condition. Nose without bleeding or purulent drainage. NECK: Trachea midline. Supple, nontender. No palpable thyroid enlargement or nodularity. CARDIOVASCULAR: Regular rate and rhythm without murmurs, gallops, or rubs. No JVD. Peripheral pulses symmetric. RESPIRATORY/CHEST: Symmetric, unlabored respirations on the ventilator. Scattered rales bilateral. GASTROINTESTINAL: Abdomen soft, nondistended. No hepato-splenomegaly, or palpable masses. No guarding. Bowel sounds present. GENITOURINARY: Without palpable bladder distension. Jha catheter in place. MUSCULOSKELETAL: Extremities without clubbing, cyanosis, or edema. No calf tenderness. No mottling or clubbing. LYMPHATICS: No palpable cervical or supraclavicular adenopathy. NEUROLOGICAL: Unresponsive to voice and to tactile stimulation including painful stimulation. PSYCHIATRIC: Unable to assess due to clinical condition . Diagnostic Tests Laboratory Laboratory Tests Test 06/21/16 06/21/16 06/21/16 06/21/16 08:00 08:10 08:15 11:05 White Blood Count 10.2 TH/MM3 (4.0-11.0) Red Blood Count 3.42 MIL/MM3 (4.00-5.30) Hemoglobin 10.1 GM/DL (11.6-15.3) Hematocrit 30.9 % (35.0-46.0) Mean Corpuscular Volume 90.5 FL (80.0-100.0) Mean Corpuscular Hemoglobin 29.6 PG (27.0-34.0) Mean Corpuscular Hemoglobin 32.7 % Concent (32.0-36.0) Red Cell Distribution Width 13.9 % (11.6-17.2) Platelet Count 288 TH/MM3 (150-450) Mean Platelet Volume 8.3 FL (7.0-11.0) Neutrophils (%) (Auto) 58.9 % (16.0-70.0) Lymphocytes (%) (Auto) 35.0 % (9.0-44.0) Monocytes (%) (Auto) 4.1 % (0.0-8.0) Eosinophils (%) (Auto) 1.6 % (0.0-4.0) Basophils (%) (Auto) 0.4 % (0.0-2.0) Neutrophils # (Auto) 6.0 TH/MM3 (1.8-7.7) Lymphocytes # (Auto) 3.6 TH/MM3 (1.0-4.8) Monocytes # (Auto) 0.4 TH/MM3 (0-0.9) Eosinophils # (Auto) 0.2 TH/MM3 (0-0.4) Basophils # (Auto) 0.0 TH/MM3 (0-0.2) CBC Comment AUTO DIFF Differential Comment AUTO DIFF CONFIRMED Prothrombin Time 12.0 SEC (9.8-11.6) Prothromb Time International 1.1 RATIO Ratio Activated Partial 31.3 SEC Thromboplast Time (24.3-30.1) Sodium Level 145 MEQ/L (136-145) Potassium Level 3.9 MEQ/L (3.5-5.1) Chloride Level 109 MEQ/L (98-107) Carbon Dioxide Level 15.8 MEQ/L (21.0-32.0) Anion Gap 20 MEQ/L (5-15) Blood Urea Nitrogen 13 MG/DL (7-18) Creatinine 1.25 MG/DL (0.50-1.00) Estimat Glomerular Filtration 52 ML/MIN (>89) Rate Random Glucose 247 MG/DL (74-106) Calcium Level 8.2 MG/DL (8.5-10.1) Total Bilirubin 0.2 MG/DL (0.2-1.0) Aspartate Amino Transf 492 U/L (15-37) (AST/SGOT) Alanine Aminotransferase 508 U/L (10-53) (ALT/SGPT) Alkaline Phosphatase 59 U/L (45-117) Troponin I 0.16 NG/ML 5.45 NG/ML (0.02-0.05) (0.02-0.05) Total Protein 5.8 GM/DL (6.4-8.2) Albumin 2.4 GM/DL (3.4-5.0) Salicylates Level LESS THAN 1.7 MG/DL (2.8-20.0) Acetaminophen Level 2.8 MCG/ML (10.0-30.0) Ethyl Alcohol Level LESS THAN 3 MG/DL (0-5) Urine Color LIGHT-YELLOW (YELLW/STRAW) Urine Turbidity CLEAR (CLEAR) Urine pH 7.0 (5.0-8.5) Urine Specific [place] 1.010 (1.002-1.035) Urine Protein 300 mg/dL (NEG-TRACE) Urine Glucose (UA) NEG mg/dL (NEG) Urine Ketones NEG mg/dL (NEG) Urine Occult Blood SMALL (NEG) Urine Nitrite NEG (NEG) Urine Bilirubin NEG (NEG) Urine Urobilinogen LESS THAN 2.0 MG/DL (LESS THAN 2.0) Urine Leukocyte Esterase NEG (NEG) Urine RBC 5 /hpf (0-3) Urine WBC 2 /hpf (0-5) Urine Bacteria RARE /hpf (NONE) Urine Hyaline Casts 1 /lpf (RARE) Urine Mucus FEW /lpf (OCC) Microscopic Urinalysis Comment CULT NOT INDICATED Blood Gas Puncture Site LT RADIAL Blood Gas Patient Temperature 98.6 Blood Gas HCO3 14 mmol/L (22-26) Blood Gas Base Excess -13.6 mmol/L (-2-2) Blood Gas Oxygen Saturation 98 % (90-100) Arterial Blood pH 7.14 (7.380-7.420) Arterial Blood Partial 43 mmHg (38-42) Pressure CO2 Arterial Blood Partial 180 mmHG Pressure O2 (61-120) Arterial Blood Oxygen Content 13.0 Vol % (12.0-20.0) Arterial Blood 0.2 % (0-4) Carboxyhemoglobin Arterial Blood Methemoglobin 0.2 % (0-2) Blood Gas Hemoglobin 9.1 G/DL (12.0-16.0) Oxygen Delivery Device VENTILATOR Blood Gas Ventilator Setting PRVC/AC Blood Gas Inspired Oxygen 70 % Urine Opiates Screen NEG (NEG) Urine Barbiturates Screen NEG (NEG) Urine Amphetamines Screen NEG (NEG) Urine Benzodiazepines Screen NEG (NEG) Urine Cocaine Screen NEG (NEG) Urine Cannabinoids Screen NEG (NEG) Ammonia 28 MCMOL/L (11-32) Result Diagram: 06/21/16 0800 06/21/16 0800 Imaging Last Impressions Chest X-Ray 06/21/16 0752 Signed Impressions: Service Date/Time: Tuesday, June 21, 2016 07:55 - CONCLUSION: Perihilar interstitial/alveolar prominence. Mild air space disease left lung base. Satisfactory position of endotracheal and nasogastric tubes. [place] MD Head CT 06/21/16 0000 Signed Impressions: Service Date/Time: Tuesday, June 21, 2016 08:39 - CONCLUSION: Large parenchymal hemorrhage of the left cerebellar hemisphere with midline shift and mass effect on the brainstem. There is a large amount of posterior fossa and supratentorial subarachnoid blood. Deondre Coronado MD Procedures INTUBATION 06/21/16 . Patient/Family Conference Present at Family Conference: By telephone, patient's mother Magali Meeks, and patient's maternal aunt Renée Duff. . Family Conference Time (mins): 50 Family Conference Location: Telephone Issues Discussed: * Palliative care role, purpose, approach * Additional medical, psychosocial, and spiritual history * Patients general health, functional status, and cognitive changes in the months leading up to the current hospitalization * Patient/family understanding of the current medical problems * Patient/family understanding of prognosis * Patients goals of care as best understood from advance directives and/or conversations and/or values * Current medical treatment options and benefits/burdens of those options * Likely scenarios comparing ongoing aggressive care with a transition to comfort measures only * Questions answered to the best of my ability * Palliative care contact information provided The patient's mother and her aunt Renée are in agreement that, when the patient suffers the next cardiac arrest, "we will let her go peacefully," with no further resuscitation. The patient's mother is not yet ready to address the idea of withdrawal of life support. Aunt Renée Duff is VERY HELPFUL in the discussions with her sister ( the patient's mother), as she has had experience in the healthcare field and with end-of-life situations in other family members. . Assessment and Plan Disease Oriented Problem List: (1) cerebellar and subarachnoid hemorrhage (2) cardiorespiratory arrest, cardiac resuscitation (3) 9 mm left to right shift of the cerebellum, with mass effect on brainstem (4) (highly probable) anoxic brain injury (5) respiratory failure (6) bilateral pulmonary infiltrates, suspected aspiration (7) schizophrenia since age 17, currently being managed with periodic injections of a long-acting medication (8) chronic knee pain, arthritis Symptom Scale: (1) pain 0-10 Scale: Unable to quantify (2) dyspnea 0-10 Scale: Unable to quantify Pertinent Non-Medical Issues Psychosocial: Never , disabled due to schizophrenia, lives in a home with her elderly mother and the patient's brother. Spiritual: She attends services regularly at the [facility]. Legal: The patient lacks capacity for decision making, and she will not regain that capacity. The patient is unmarried and has no children, and her proxy decision maker is her mother. Ethical issues impacting care: None. . Important Contacts Patient's mother: Magali Meeks Home: - Patient's maternal aunt, Renée Duff (VERY HELPFUL) . Prognosis The prognosis is dismal. In addition to the significant hemorrhage and left to right shift of the brainstem, there is an apparent anoxic brain injury. She is currently being supported artificially via mechanical ventilation and pressor agents. She is certainly appropriate for transition to comfort measures and end -of-life care. . Code Status: No Code Plan * DO NOT RESUSCITATE, per patient's mother and aunt Renée on 06/21/16 * DECISION-MAKING: The patient lacks capacity for decision making, and she will not regain that capacity. The patient is unmarried and has no children, and her proxy decision maker is her mother. * GOALS: The patient's mother and her aunt Renée are in agreement that, when the patient suffers the next cardiac arrest, "we will let her go peacefully ," with no further resuscitation. The patient's mother is not yet ready to address the idea of withdrawal of life support. Aunt Renée Duff (see phone number above) is VERY HELPFUL in the discussions with her sister ( the patient's mother), as she has had experience in the healthcare field and with end-of-life situations in other family members. * SYMPTOMS: The patient is completely unresponsive, and there is no obvious pain or dyspnea at this time. I have no specific medication recommendations. * I think the most likely scenario here is one of an initial sudden hemorrhage resulting in a respiratory arrest that eventually led to cardiac arrest/asystole ; I would think anoxic brain injury is fairly certain. * The subject of withdrawal of life support to allow a peaceful and natural will be readdressed with the patient's mother in the upcoming days. * Palliative Care will continue to follow the patient during this hospitalization. . Time Spent Total Floor Time (mins): 110 Face to Face Time (mins): 66 >50% Counseling/Coord of Care: Yes (d/w/ RN and with Dr. Alcaraz) Thank you for the opportunity to participate in the care of Ms. Meeks. Jena Larry MD Jun 21, 2016 14:32
--- NOTE | 2016-06-21 15:42 | HHI.HP ---
[facility] Service Critical Care Medicine Primary Care Physician Gurwinder Lindo III, MD Admission Diagnosis intracranial hemorrhage/intubated/status post asystolic code Diagnosis: Travel History International Travel<30 Days: No Contact w/Intl Traveler <30 Da: No Traveled to Known Affected Are: No History of Present Illness 65-year-old very unfortunate female presents brought in by EMS as a cardiac arrest. Patient was found unresponsive by family, CPR initiated by her aunt, and EMS arrived and continued CPR. After 2 rounds of epi and CPR, patient regained a pulse and has a sinus rhythm. She was intubated by EMS. However, down time is unknown and there is a very high probability of severe anoxic brain injury. Initial rhythm was asystole Review of Systems ROS Unable to obtain patient is intubated and unresponsive Past Family Social History Allergies: Coded Allergies: No Known Allergies (Verified , 11/05/13) Past Medical History Schizophrenia Past Surgical History Unable to obtain Reported Medications Reported Meds & Active Scripts Active Active Prescriptions or Reported Medications Unobtainable Active Ordered Medications Current Medications Medications (Trade) Dose Ordered Sig/Gee Route PRN Reason Start Time Stop Time Status Last Admin Dose Admin Terbutaline Sulfate 1 mg 1 mg UNSCH PRN SQ For Extravasation 06/21/16 09:15 Sodium Bicarbonate 150 meq/Sterile Water 1,000 ml @ 150 mls/hr Q6H40M IV 06/21/16 09:15 06/21/16 09:39 Sodium Chloride (NS 1000 ml Inj) 1,000 ml @ 185 mls/hr Q5H25M IV 06/21/16 09:56 06/21/16 11:16 IV Flush (NS Flush) 2 ml UNSCH PRN IV FLUSH FLUSH AFTER USING IV ACCESS 06/21/16 10:00 IV Flush (NS Flush) 2 ml BID IV FLUSH 06/21/16 21:00 Acetaminophen (Tylenol) 650 mg Q6H PRN PO PAIN 1-10 AND/OR FEVER >101F 06/21/16 10:00 Morphine Sulfate (Morphine Inj) 2 mg Q2H PRN IV PAIN SCALE 6 TO 10 06/21/16 10:00 Famotidine (Pepcid Inj) 20 mg Q12HR IV PUSH 06/21/16 21:00 Lorazepam (Ativan Inj) 1 mg Q1H PRN IV Agitation/Sedation 06/21/16 10:00 Artificial Tears (Tears Naturale Opth Soln) 1 drop TID EACH EYE 06/21/16 13:00 Ondansetron HCl (Zofran Inj) 4 mg Q6H PRN IV NAUSEA OR VOMITING 06/21/16 10:00 Metoclopramide HCl (Reglan Inj) 10 mg Q6H PRN IV NAUSEA OR VOMITING 06/21/16 10:00 Docusate Sodium (Colace Liq) 100 mg Q12H G-TUBE 06/21/16 10:00 Miscellaneous Information 1 [id number] XX 06/21/16 10:00 Chlorhexidine Gluconate (Chlorhexidine 2% Cloth) 3 pack Taper DAILY@04 TOP 06/22/16 04:00 06/18/17 03:59 Chlorhexidine Gluconate 3 pack 3 pack UNSCH PRN TOP HYGIENIC CARE 06/21/16 10:00 Dopamine HCl/ Dextrose (DOPamine INJ PREMIX) 500 ml @ 0 mls/hr TITRATE IV 06/21/16 10:15 Terbutaline Sulfate (Brethine Inj) 1 mg UNSCH PRN SQ For Extravasation 06/21/16 10:15 Family History Unable to obtain Social History Unable to obtain due to coma Physical Exam Vital Signs Vital Signs Date Time Temp Pulse Resp B/P Pulse Ox O2 Delivery O2 Flow Rate FiO2 06/21/16 14:45 118 20 91/58 100 Auto-Vent 70 06/21/16 13:45 109 20 113/76 100 Auto-Vent 70 06/21/16 12:41 98 70 06/21/16 12:30 108 20 95/59 98 Auto-Vent 06/21/16 12:00 112 20 96/63 98 Auto-Vent 06/21/16 11:27 115 20 106/58 100 Auto-Vent 70 06/21/16 11:00 106 20 94/61 97 Auto-Vent 70 06/21/16 10:30 112 20 90/61 100 Auto-Vent 70 06/21/16 09:55 101 16 108/58 100 Auto-Vent 70 06/21/16 09:41 107 16 92/67 100 Auto-Vent 70 06/21/16 09:15 88 16 68/46 100 Auto-Vent 70 06/21/16 08:45 94 16 63/40 100 Auto-Vent 70 06/21/16 08:40 100 16 74/48 100 Auto-Vent 70 06/21/16 08:35 101 16 69/42 100 Auto-Vent 70 06/21/16 08:30 100 100 06/21/16 08:18 105 16 73/42 100 Auto-Vent 70 06/21/16 08:02 96 70 06/21/16 07:49 94 Auto-Vent 06/21/16 07:49 97.7 89 18 49/28 94 06/21/16 07:49 93 18 94 Auto-Vent 06/21/16 07:49 98 18 54/33 94 Auto-Vent 06/21/16 07:49 70 Physical Exam GENERAL: Well-nourished, well-developed patient comatose female. GCS 3 SKIN: Warm and dry. HEAD: Normocephalic. EYES: No scleral icterus. No injection or drainage. Pupils are fixed and dilated NECK: Supple, trachea midline. No JVD or lymphadenopathy. CARDIOVASCULAR: Regular rate and rhythm without murmurs, gallops, or rubs. RESPIRATORY: Breath sounds equal bilaterally. No accessory muscle use. GASTROINTESTINAL: Abdomen soft, non-tender, nondistended. MUSCULOSKELETAL: No cyanosis, or edema. BACK: Nontender without obvious deformity. No CVA tenderness. Laboratory Laboratory Tests Test 06/21/16 06/21/16 06/21/16 06/21/16 08:00 08:10 08:15 11:05 White Blood Count 10.2 Red Blood Count 3.42 Hemoglobin 10.1 Hematocrit 30.9 Mean Corpuscular Volume 90.5 Mean Corpuscular Hemoglobin 29.6 Mean Corpuscular Hemoglobin 32.7 Concent Red Cell Distribution Width 13.9 Platelet Count 288 Mean Platelet Volume 8.3 Neutrophils (%) (Auto) 58.9 Lymphocytes (%) (Auto) 35.0 Monocytes (%) (Auto) 4.1 Eosinophils (%) (Auto) 1.6 Basophils (%) (Auto) 0.4 Neutrophils # (Auto) 6.0 Lymphocytes # (Auto) 3.6 Monocytes # (Auto) 0.4 Eosinophils # (Auto) 0.2 Basophils # (Auto) 0.0 CBC Comment AUTO DIFF Differential Comment AUTO DIFF CONFIRMED Prothrombin Time 12.0 Prothromb Time International 1.1 Ratio Activated Partial 31.3 Thromboplast Time Sodium Level 145 Potassium Level 3.9 Chloride Level 109 Carbon Dioxide Level 15.8 Anion Gap 20 Blood Urea Nitrogen 13 Creatinine 1.25 Estimat Glomerular Filtration 52 Rate Random Glucose 247 Calcium Level 8.2 Total Bilirubin 0.2 Aspartate Amino Transf 492 (AST/SGOT) Alanine Aminotransferase 508 (ALT/SGPT) Alkaline Phosphatase 59 Troponin I 0.16 5.45 Total Protein 5.8 Albumin 2.4 Salicylates Level LESS THAN 1.7 Acetaminophen Level 2.8 Ethyl Alcohol Level LESS THAN 3 Urine Color LIGHT-YELLOW Urine Turbidity CLEAR Urine pH 7.0 Urine Specific [place] 1.010 Urine Protein 300 Urine Glucose (UA) NEG Urine Ketones NEG Urine Occult Blood SMALL Urine Nitrite NEG Urine Bilirubin NEG Urine Urobilinogen LESS THAN 2.0 Urine Leukocyte Esterase NEG Urine RBC 5 Urine WBC 2 Urine Bacteria RARE Urine Hyaline Casts 1 Urine Mucus FEW Microscopic Urinalysis Comment CULT NOT INDICATED Blood Gas Puncture Site LT RADIAL Blood Gas Patient Temperature 98.6 Blood Gas HCO3 14 Blood Gas Base Excess -13.6 Blood Gas Oxygen Saturation 98 Arterial Blood pH 7.14 Arterial Blood Partial 43 Pressure CO2 Arterial Blood Partial 180 Pressure O2 Arterial Blood Oxygen Content 13.0 Arterial Blood 0.2 Carboxyhemoglobin Arterial Blood Methemoglobin 0.2 Blood Gas Hemoglobin 9.1 Oxygen Delivery Device VENTILATOR Blood Gas Ventilator Setting PRVC/AC Blood Gas Inspired Oxygen 70 Urine Opiates Screen NEG Urine Barbiturates Screen NEG Urine Amphetamines Screen NEG Urine Benzodiazepines Screen NEG Urine Cocaine Screen NEG Urine Cannabinoids Screen NEG Ammonia 28 Result Diagram: 06/21/16 0800 06/21/16 0800 Imaging Last 24 hours Impressions Chest X-Ray 06/21/16 0752 Signed Impressions: Service Date/Time: Tuesday, June 21, 2016 07:55 - CONCLUSION: Perihilar interstitial/alveolar prominence. Mild air space disease left lung base. Satisfactory position of endotracheal and nasogastric tubes. [place] MD Head CT 06/21/16 0000 Signed Impressions: Service Date/Time: Tuesday, June 21, 2016 08:39 - CONCLUSION: Large parenchymal hemorrhage of the left cerebellar hemisphere with midline shift and mass effect on the brainstem. There is a large amount of posterior fossa and supratentorial subarachnoid blood. Deondre Coronado MD Chest X-Ray 06/21/16 0000 Signed Impressions: Service Date/Time: Tuesday, June 21, 2016 10:03 - CONCLUSION: 1. New right subclavian central venous catheter with tip in the superior vena cava. No pneumothorax or other acute complication demonstrated. 2. Other lines and tubes unchanged as above. 3. Bilateral infiltrates are modestly worse. Deondre Coronado MD Assessment and Plan Problem List: (1) Cardiac asystole ICD Code: I46.9 Status: Acute (2) respiratory failure Status: Acute (3) (highly probable) anoxic brain injury Status: Acute (4) cerebellar and subarachnoid hemorrhage Status: Acute Assessment and Plan Respiratory failure - Intubated for an airway protection - Continue mechanical ventilation - Continue duo nebs as needed - No weaning until neurologically improved Cardiac arrest - Due to large intracranial bleed - Supportive care Hypotension - CVP line in place - Dopamine as needed to keep MAP above 65 - IV fluids Brain edema - Onetime mannitol dose in the ED - Supportive care Intracranial bleed - No coagulopathy - Monitor blood pressure - Not the candidate for surgical procedure due to underlying severe anoxic brain injury - Palliative care consult DVT GI prophylaxis - Teds SCDs Pepcid Critical Care: The total critical care time was 35 minutes. Time to perform other separately billable procedures was not included in the critical care time. Adolfo Alcaraz MD Jun 21, 2016 15:42
--- NOTE | 2016-06-21 15:43 | PD.PROCEDR ---
Procedure Note Procedure Central line placement A time-out was completed verifying correct patient, procedure, site, positioning , and special equipment if applicable. The patient was placed in a dependent position appropriate for central line placement based on the vein to be cannulated. The patients right shoulder was prepped and draped in sterile fashion. 1% Lidocaine was used to anesthetize the surrounding skin area. A triple lumen 9-[place]ones[place] Cordis catheter was introduced into the the right subclavian vein using the Seldinger technique. The catheter was threaded smoothly over the guide wire and appropriate blood return was obtained. Each lumen of the catheter was evacuated of air and flushed with sterile saline. The catheter was then sutured in place to the skin and a sterile dressing applied. Perfusion to the extremity distal to the point of catheter insertion was checked and found to be adequate. Estimated Blood Loss: 1ml The patient tolerated the procedure well and there were no complications. Adolfo Alcaraz MD Jun 21, 2016 15:43
--- NOTE | 2016-06-21 18:55 | EKG ---
Date Performed: 06/21/2016 Time Performed: 07:57:59 PTAGE: 65 years EKG: Sinus rhythm POSSIBLE RIGHT VENTRICULAR CONDUCTION DELAY NONSPECIFIC ST & T-WAVE ABNORMALITY BORDERLINE ECG PREVIOUS TRACING : 07/27/2003 10.45 Compared to the previous tracing, possible right ventricula r conduction delay and non-specific ST/T wave changes are new DOCTOR: David Mallory Interpretating Date/Time 06/21/2016 18:55:04
[2016-06-21] MEDS: SODIUM CHLORIDE 0.9% FLUSH 5 ML FLUSH IV FLUSH SCH (19:42)
[2016-06-21] MEDS: DOPamine INJ PREMIX 500 ML IV SCH (19:42)
[2016-06-21] MEDS ORDERED: FAMOTIDINE 20 MG/2 ML VIAL IV PUSH SCH (21:00)
[2016-06-22] VITALS (15 sets, daily range): BP systolic 81–105; BP diastolic 51–65; PULSE 98–111; RESP 12–20; TEMP 96.6–98.1; O2SAT 94–100
[2016-06-22] MEDS: SODIUM CHLOR 0.9% 1000 ML INJ 1,000 ML IV SCH ×3 (01:03→12:59)
[2016-06-22 01:12] LABS: INDIRECT BILIRUBIN 0.2 MG/DL (0.0-0.8); TOTAL BILIRUBIN ADULT 0.3 MG/DL (0.2-1.0)
[2016-06-22 01:31] LABS: CKMB 64.1 NG/ML (0.5-3.6)
[2016-06-22] MEDS: CHLORHEXIDINE GLUCONATE 2 % 1 PACK (2 CLOTHS) TOP SCH (04:00)
[2016-06-22 04:06] LABS: AUTOMATED NEUTROPHIL # 8.5 TH/MM3 (1.8-7.7); BASOPHIL % 0.4 % (0.0-2.0); EOSINOPHIL # 0.2 TH/MM3 (0-0.4); HEMATOCRIT 34.8 % (35.0-46.0); HEMO FLAGS DIFF FINAL; LYMPH % 16.5 % (9.0-44.0); LYMPHOCYTE # 1.9 TH/MM3 (1.0-4.8); MEAN CELL VOLUME 86.3 FL (80.0-100.0); MEAN CORPUSCULAR HEMOGLOBIN 28.3 PG (27.0-34.0); MEAN CORPUSCULAR HGB CONC 32.8 % (32.0-36.0); MONO % 6.9 % (0.0-8.0); NEUT % 74.2 % (16.0-70.0); PLATELET COUNT 269 TH/MM3 (150-450); RED BLOOD COUNT 4.03 MIL/MM3 (4.00-5.30); RED CELL DISTRIBUTION WIDTH 13.6 % (11.6-17.2); WHITE BLOOD COUNT 11.4 TH/MM3 (4.0-11.0)
[2016-06-22 04:14] LABS: APTT (PATIENT) 29.6 SEC (24.3-30.1); INTERNATIONAL NORMALIZED RATIO 1.1 RATIO; PROTHROMBIN TIME - PATIENT 12.3 SEC (9.8-11.6)
[2016-06-22] MEDS: DOPamine INJ PREMIX 500 ML IV SCH ×3 (05:08→22:29)
[2016-06-22 05:09] LABS: ALKALINE PHOSPHATASE 73 U/L (45-117); ALT (GPT) 422 U/L (10-53); ANION GAP 9 MEQ/L (5-15); AST (GOT) 510 U/L (15-37); BICARBONATE 26.1 MEQ/L (21.0-32.0); BLOOD UREA NITROGEN 23 MG/DL (7-18); CHLORIDE 127 MEQ/L (98-107); GLOMERULAR FILTRATION RATE 39 ML/MIN (>89); MAGNESIUM 2.2 MG/DL (1.5-2.5); TOTAL BILIRUBIN ADULT 0.3 MG/DL (0.2-1.0)
[2016-06-22 05:14] LABS: BLOOD GAS BASE EXCESS 0.7 mmol/L (-2-2); BLOOD GAS CARBOXYHEMOGLOBIN 0.9 % (0-4); BLOOD GAS HCO3 23 mmol/L (22-26); BLOOD GAS O2 HGB SATURATION 96 % (90-100); BLOOD GAS OXYGEN CONTENT 16.5 Vol % (12.0-20.0); BLOOD GAS PCO2 26 mmHg (38-42); BLOOD GAS PO2 97 mmHg (61-120); BLOOD GAS TOTAL HGB 12.2 G/DL (12.0-16.0); CRITICAL VALUE YES; FIO2 50 %; OXYGEN DEVICE VENTILATOR; TEMP CORR TO 98.6; VENT SETTINGS PRVC20/500/1.0/+5
[2016-06-22 05:15] LABS: DRAW SITE RT BRACHIAL; NUMBER OF ARTERIAL PUNCTURES 1; STAT NO; ULNAR PULSE PRESENT
[2016-06-22 05:33] LABS: POTASSIUM 2.7 MEQ/L (3.5-5.1); SODIUM (NA) 162 MEQ/L (136-145)
--- NOTE | 2016-06-22 07:17 | HHI.CCPN ---
Subjective Remarks/Hospital Course 65-year-old very unfortunate female presents brought in by EMS as a cardiac arrest. Patient was found unresponsive by family, CPR initiated by her aunt, and EMS arrived and continued CPR. After 2 rounds of epi and CPR, patient regained a pulse and has a sinus rhythm. She was intubated by EMS. However, down time is unknown and there is a very high probability of severe anoxic brain injury. Initial rhythm was asystole Objective Vital Signs Date Time Temp Pulse Resp B/P Pulse Ox O2 Delivery O2 Flow Rate FiO2 06/22/16 04:00 50 06/22/16 04:00 98.1 107 20 105/65 100 06/21/16 20:00 Mechanical Ventilator Intake and Output 06/21/16 06/21/16 06/22/16 08:00 16:00 00:00 Intake Total 2811 ml Output Total 1700 ml 2353 ml Balance -1700 ml 458 ml Result Diagram: 06/22/16 0350 06/22/16 0350 Other Results Laboratory Tests Test 06/21/16 06/22/16 08:15 05:08 Blood Gas Puncture Site LT RADIAL RT BRACHIAL Blood Gas Patient Temperature 98.6 98.6 Blood Gas HCO3 14 mmol/L 23 mmol/L (22-26) (22-26) Blood Gas Base Excess -13.6 mmol/L 0.7 mmol/L (-2-2) (-2-2) Blood Gas Oxygen Saturation 98 % (90-100) 96 % (90-100) Arterial Blood pH 7.14 7.55 (7.380-7.420) (7.380-7.420) Arterial Blood Partial 43 mmHg (38-42) 26 mmHg (38-42) Pressure CO2 Arterial Blood Partial 180 mmHG 97 mmHg Pressure O2 (61-120) (61-120) Arterial Blood Oxygen Content 13.0 Vol % 16.5 Vol % (12.0-20.0) (12.0-20.0) Arterial Blood 0.2 % (0-4) 0.9 % (0-4) Carboxyhemoglobin Arterial Blood Methemoglobin 0.2 % (0-2) 1.0 % (0-2) Blood Gas Hemoglobin 9.1 G/DL 12.2 G/DL (12.0-16.0) (12.0-16.0) Oxygen Delivery Device VENTILATOR VENTILATOR Blood Gas Ventilator Setting [facility]/ PRVC20/500/1.0/+5 Blood Gas Inspired Oxygen 70 % 50 % Imaging Last 24 hours Impressions Chest X-Ray 06/21/16 0752 Signed Impressions: Service Date/Time: Tuesday, June 21, 2016 07:55 - CONCLUSION: Perihilar interstitial/alveolar prominence. Mild air space disease left lung base. Satisfactory position of endotracheal and nasogastric tubes. [place] MD Head CT 06/21/16 0000 Signed Impressions: Service Date/Time: Tuesday, June 21, 2016 08:39 - CONCLUSION: Large parenchymal hemorrhage of the left cerebellar hemisphere with midline shift and mass effect on the brainstem. There is a large amount of posterior fossa and supratentorial subarachnoid blood. Deondre Coronado MD Chest X-Ray 06/21/16 0000 Signed Impressions: Service Date/Time: Tuesday, June 21, 2016 10:03 - CONCLUSION: 1. New right subclavian central venous catheter with tip in the superior vena cava. No pneumothorax or other acute complication demonstrated. 2. Other lines and tubes unchanged as above. 3. Bilateral infiltrates are modestly worse. Deondre Coronado MD Objective Remarks GENERAL: Well-nourished, well-developed patient comatose female. GCS 3 SKIN: Warm and dry. HEAD: Normocephalic. EYES: No scleral icterus. No injection or drainage. Pupils are fixed and dilated NECK: Supple, trachea midline. No JVD or lymphadenopathy. CARDIOVASCULAR: Regular rate and rhythm without murmurs, gallops, or rubs. RESPIRATORY: Breath sounds equal bilaterally. No accessory muscle use. GASTROINTESTINAL: Abdomen soft, non-tender, nondistended. MUSCULOSKELETAL: No cyanosis, or edema. BACK: Nontender without obvious deformity. No CVA tenderness. A/P Problem List: (1) Cardiac asystole ICD Code: I46.9 Status: Acute (2) respiratory failure Status: Acute (3) (highly probable) anoxic brain injury Status: Acute (4) cerebellar and subarachnoid hemorrhage Status: Acute Assessment and Plan Respiratory failure - Intubated for an airway protection - Continue mechanical ventilation - Continue duo nebs as needed - No weaning until neurologically improved - Apnea test today if hemodynamically stable and normothermic Cardiac arrest - Due to large intracranial bleed - Following respiratory arrest - Anoxic brain damage - Supportive care Hypotension - CVP line in place - Dopamine as needed to keep MAP above 65 - IV fluids Brain edema - Onetime mannitol dose in the ED - Supportive care Intracranial bleed - No coagulopathy - Monitor blood pressure - Not the candidate for surgical procedure due to underlying severe anoxic brain injury - Palliative care consult DVT GI prophylaxis - Teds SCDs Pepcid Critical Care: The total critical care time was 35 minutes. Time to perform other separately billable procedures was not included in the critical care time. Adolfo Alcaraz MD Jun 22, 2016 07:17
[2016-06-22] MEDS: DOCUSATE SODIUM 100 MG/10 ML UDC G-TUBE SCH ×2 (07:50→21:17)
[2016-06-22] MEDS: ARTIFICIAL TEARS OPTH SOLN 15 ML BTL EACH EYE SCH ×3 (07:53→17:32)
[2016-06-22] MEDS: SODIUM CHLORIDE 0.9% FLUSH 5 ML FLUSH IV FLUSH SCH ×2 (07:56→21:16)
[2016-06-22 11:00] LABS: BLOOD GAS BASE EXCESS 0.7 mmol/L (-2-2); BLOOD GAS CARBOXYHEMOGLOBIN 0.6 % (0-4); BLOOD GAS HCO3 25 mmol/L (22-26); BLOOD GAS METHEMOGLOBIN 0.7 % (0-2); BLOOD GAS O2 HGB SATURATION 95 % (90-100); BLOOD GAS OXYGEN CONTENT 17.3 Vol % (12.0-20.0); BLOOD GAS PCO2 40 mmHg (38-42); BLOOD GAS PO2 92 mmHg (61-120); BLOOD GAS TOTAL HGB 12.9 G/DL (12.0-16.0); TEMP CORR TO 98.6
[2016-06-22 11:01] LABS: CRITICAL VALUE NO; DRAW SITE LT RADIAL; FIO2 50 %; NUMBER OF ARTERIAL PUNCTURES 1; OXYGEN DEVICE VENTILATOR; STAT NO; ULNAR PULSE Y; VENT SETTINGS PRVC/VT450/R12/P5
[2016-06-22] MEDS ORDERED: SODIUM PHOSPHATE INJ 30 MMOL in SODIUM CHLOR 0.9% 250 ML INJ 240 ML IV PRN (14:00)
[2016-06-22] MEDS ORDERED: POTASSIUM PHOSPHATE INJ 30 MMOL in SODIUM CHLOR 0.9% 250 ML INJ 250 ML IV PRN (14:00)
[2016-06-22] MEDS ORDERED: POTASSIUM PHOSPHATE MONOBASIC 500 MG TAB PO/TUBE PRN (14:00)
[2016-06-22] MEDS ORDERED: POTASSIUM CHLOR 20 MEQ PREMIX 100 ML IV PRN ×2 (14:00)
[2016-06-22] MEDS ORDERED: MAGNESIUM OXIDE 400 MG TAB PO PRN (14:00)
[2016-06-22] MEDS ORDERED: POTASSIUM PHOSPHATE MONOBASIC 500 MG TAB PO PRN (14:00)
[2016-06-22] MEDS ORDERED: MAGNESIUM SULFATE INJ 4 GM in SODIUM CHLORIDE 0.9% INJ 92 ML IV PRN (14:00)
[2016-06-22] MEDS ORDERED: POTASSIUM CHLOR 40 MEQ PREMIX 100 ML IV PRN ×2 (14:00)
[2016-06-22] MEDS ORDERED: MAGNESIUM SULFATE INJ 2 GM in SODIUM CHLORIDE 0.9% INJ 96 ML IV PRN (14:00)
--- NOTE | 2016-06-22 14:22 | HHI.NSPN ---
Note Status Status: Progress Note Interval History Diagnosis posterior fosa hemorrhage, anoxic encephalopathy Interval History This is a 65-year-old female, with underlying schizophrenia and chronic knee pain, was found on the floor and cardiac arrest at home by her mother. The patient's mother and aunt report that the patient had not had any change in her usual health until recently. She has had difficulty getting around because of chronic knee pain/arthritis. She was found unresponsive, comatose on the floor. The amount of downtime on the floor prior to being found is unknown and cannot be known, as the mother found the patient after the mother got out of bed this morning. EMS arrived to find the patient in asystole, she was resuscitated according to the ACLS protocol. Following endotracheal intubation and 2 rounds of medications, return of spontaneous circulation. The patient remained unresponsive and was brought to the emergency department. GCS was 3. CT of the brain show a large posterior fossa hemorrhage. Neurosurgical consultation was requested 06/22. remains comatose. pupils duilated and fixed. GCS of 3 Labs, Micro, & Vital Signs Results Date Time Temp Pulse Resp B/P Pulse Ox O2 Delivery O2 Flow Rate FiO2 06/22/16 12:44 100 40 06/22/16 12:00 40 06/22/16 12:00 97.7 102 16 86/57 96 06/22/16 10:00 40 06/22/16 08:31 98 40 06/22/16 08:00 50 06/22/16 08:00 97.9 106 16 88/56 98 06/22/16 07:00 98 Mechanical Ventilator 50 06/22/16 07:00 105 06/22/16 04:00 50 06/22/16 04:00 98.1 107 20 105/65 100 06/22/16 03:48 98 50 06/22/16 00:28 100 50 06/22/16 00:00 109 06/22/16 00:00 97.3 109 20 94/54 100 06/22/16 00:00 60 06/21/16 22:00 114 06/21/16 21:14 100 60 06/21/16 20:00 98.1 114 20 95/63 100 06/21/16 20:00 Mechanical Ventilator 06/21/16 20:00 100 06/21/16 16:35 78 06/21/16 16:27 100 100 06/21/16 16:00 94.1 82 20 195/153 94 06/21/16 16:00 Mechanical Ventilator 06/21/16 16:00 100 06/21/16 14:45 118 20 91/58 100 Auto-Vent 70 06/22/16 07:00 Intake Total 4132 ml Output Total 5854 ml Balance -1722 ml Constitutional Vital Signs Date Time Temp Pulse Resp B/P Pulse Ox O2 Delivery O2 Flow Rate FiO2 06/22/16 12:44 100 40 06/22/16 12:00 40 06/22/16 12:00 97.7 102 16 86/57 96 06/22/16 10:00 40 06/22/16 08:31 98 40 06/22/16 08:00 50 06/22/16 08:00 97.9 106 16 88/56 98 06/22/16 07:00 98 Mechanical Ventilator 50 06/22/16 07:00 105 06/22/16 04:00 50 06/22/16 04:00 98.1 107 20 105/65 100 06/22/16 03:48 98 50 06/22/16 00:28 100 50 06/22/16 00:00 109 06/22/16 00:00 97.3 109 20 94/54 100 06/22/16 00:00 60 06/21/16 22:00 114 06/21/16 21:14 100 60 06/21/16 20:00 98.1 114 20 95/63 100 06/21/16 20:00 Mechanical Ventilator 06/21/16 20:00 100 06/21/16 16:35 78 06/21/16 16:27 100 100 06/21/16 16:00 94.1 82 20 195/153 94 06/21/16 16:00 Mechanical Ventilator 06/21/16 16:00 100 06/21/16 14:45 118 20 91/58 100 Auto-Vent 70 06/22/16 07:00 Intake Total 4132 ml Output Total 5854 ml Balance -1722 ml Review of Systems/Exam Exam She is intubated,. No response to painful stimuli. GCS is 3 Cranial Nerves: Pupils equal, round, 6mm dilated and fixed. Eyes appear non- conjugated. There was no nystagmus, papilledema. Face musculature appeared symmetrical at rest. Face sensation, olfaction, visual lane, and hearing cannot be adequately assessed due to his neurological condition. The patient has no corneal reflex. She has no gag reflex. The sternocleidomastoid and trapezius are symmetrical. Cervical Spine: Her neck is soft, supple, without nuchal rigidity. Motor: No response to pain Reflexes: Deep tendon reflexes are abolished in the biceps, triceps, and brachioradialis, bilaterally, in the upper extremities. In the lower extremities, the patellar and ankles are absent bilaterally. There is a bilateral silent plantar response. There is no clonus Sensory: On examination there is no response to painful stimuli Cerebellar: Examination cannot be adequately assessed due to the patient's neurological condition. Medications Current Medications Current Medications IV Flush 2 ml 2 ml UNSCH PRN IVF FLUSH AFTER USING IV ACCESS; Start 06/21/16 at 08:00; Stop 06/21/16 at 14:04; Status DC Sodium Chloride 1,000 ml @ 999 mls/hr BOLUS ONCE IV Last administered on 06/21 08:20; Start 06/21/16 at 08:00; Stop 06/21/16 at 09:00; Status DC Sodium Chloride 1,000 ml @ 999 mls/hr BOLUS ONCE IV Last administered on 06/21 09:11; Start 06/21/16 at 09:15; Stop 06/21/16 at 10:17; Status DC Dopamine HCl/ Dextrose (DOPamine INJ PREMIX) 500 ml @ 0 mls/hr TITRATE IV Last administered on 06/21/16 09:10; Start 06/21/16 at 09:15; Stop 06/21/16 at 14:04 ; Status DC Terbutaline Sulfate 1 mg 1 mg UNSCH PRN SQ For Extravasation; Start 06/21/16 at 09:15 Sodium Bicarbonate/ Sterile Water (Sodium Bicarbonate 8.4% Inj/Sterile Water For Inj) 1,000 ml @ 150 mls/hr Q6H40M IV Last administered on 06/21/16 09:39 ; Start 06/21/16 at 09:15; Status Hold Sodium Bicarbonate (Sodium Bicarbonate 8.4% Inj) 50 meq ONCE ONCE IV PUSH Last administered on 06/21/16 09:40; Start 06/21/16 at 09:30; Stop 06/21/16 at 09:31; Status DC Sodium Bicarbonate (Sodium Bicarbonate 8.4% Inj) 50 meq ONCE ONCE IV PUSH Last administered on 06/21/16 09:40; Start 06/21/16 at 09:30; Stop 06/21/16 at 09:31; Status DC Sodium Bicarbonate 50 meq 50 meq ONCE ONCE IV PUSH Last administered on 09:40; Start 06/21/16 at 09:30; Stop 06/21/16 at 09:31; Status DC Sodium Chloride (NS 1000 ml Inj) 1,000 ml @ 185 mls/hr Q5H25M IV Last administered on 06/22/16 05:08; Start 06/21/16 at 09:56 IV Flush (NS Flush) 2 ml UNSCH PRN IV FLUSH FLUSH AFTER USING IV ACCESS; Start 06/21/16 at 10:00 IV Flush (NS Flush) 2 ml BID IV FLUSH Last administered on 06/21/16 19:42; Start 06/21/16 at 21:00 Acetaminophen (Tylenol) 650 mg Q6H PRN PO PAIN 1-10 AND/OR FEVER >101F; Start 06/21/16 at 10:00 Morphine Sulfate (Morphine Inj) 2 mg Q2H PRN IV PAIN SCALE 6 TO 10; Start 06/21 at 10:00 Famotidine (Pepcid Inj) 20 mg Q12HR IV PUSH Last administered on 06/21/16 19: 43; Start 06/21/16 at 21:00; Stop 06/22/16 at 09:25; Status DC Lorazepam (Ativan Inj) 1 mg Q1H PRN IV Agitation/Sedation; Start 06/21/16 at 10 :00 Artificial Tears (Tears Naturale Opth Soln) 1 drop TID EACH EYE Last administered on 06/22/16 12:59; Start 06/21/16 at 13:00 Ondansetron HCl (Zofran Inj) 4 mg Q6H PRN IV NAUSEA OR VOMITING; Start at 10:00 Metoclopramide HCl (Reglan Inj) 10 mg Q6H PRN IV NAUSEA OR VOMITING; Start 01/28 at 10:00 Docusate Sodium (Colace Liq) 100 mg Q12H G-TUBE ; Start 06/21/16 at 10:00 Albuterol/ Ipratropium (Duoneb Neb) 1 ampule Q2HR NEB PRN INH WHEEZING; Start 06/21/16 at 10:00 Miscellaneous Information 1 [id number] XX ; Start 06/21/16 at 10:00 Chlorhexidine Gluconate (Chlorhexidine 2% Cloth) 3 pack Taper DAILY@04 TOP Last administered on 06/22/16 04:00; Start 06/22/16 at 04:00; Stop 06/18/17 at 03:59 Chlorhexidine Gluconate 3 pack 3 pack UNSCH PRN TOP HYGIENIC CARE; Start at 10:00 Dopamine HCl/ Dextrose (DOPamine INJ PREMIX) 500 ml @ 0 mls/hr TITRATE IV Last administered on 06/22/16 12:17; Start 06/21/16 at 10:15 Terbutaline Sulfate 1 mg 1 mg UNSCH PRN SQ For Extravasation; Start 06/21/16 at 10:15 Mannitol (Osmitrol Inj) 450 ml @ 500 mls/hr Q54M ONCE IV Last administered on 06/21/16 13:37; Start 06/21/16 at 13:30; Stop 06/21/16 at 14:23; Status DC Famotidine 10 mg 10 mg Q12HR IV PUSH ; Start 06/22/16 at 21:00 Potassium Chloride 100 ml @ 50 mls/hr Q2H PRN IV For Potassium 2.8 - 3.2 mEq/L ; Start 06/22/16 at 14:00 Potassium Chloride 100 ml @ 50 mls/hr Q2H PRN IV For Potassium 2.8 - 3.2 mEq/L ; Start 06/22/16 at 14:00 Potassium Chloride 100 ml @ 25 mls/hr UNSCH PRN IV For Potassium 3.3 - 3.5 mEq /L; Start 06/22/16 at 14:00 Potassium Chloride 100 ml @ 50 mls/hr Q2H PRN IV For Potassium 3.3 - 3.5 mEq/L ; Start 06/22/16 at 14:00 Magnesium Sulfate/ Sodium Chloride (Magnesium Sulfate Inj/NS Inj) 100 ml @ 50 mls/hr UNSCH PRN IV For Magnesium 0.9 - 1.1 mg/dL; Start 06/22/16 at 14:00 Magnesium Oxide 800 mg 800 mg UNSCH PRN PO For Magnesium 1.2 - 1.6 mg/dL; Start 06/22/16 at 14:00 Magnesium Sulfate/ Sodium Chloride (Magnesium Sulfate Inj/NS Inj) 100 ml @ 50 mls/hr UNSCH PRN IV For Magnesium 1.2 - 1.6 mg/dL; Start 06/22/16 at 14:00 Potassium Phosphate 2000 mg 2,000 mg Q4H PRN PO For Phosphorus < 2.5 mg/dL; Start 06/22/16 at 14:00 Sodium Phosphate/ Sodium Chloride (Sodium Phosphate Inj/NS 250 ml Inj) 250 ml @ 42 mls/hr UNSCH PRN IV For Phosphorus < 2.5 mg/dL; Start 06/22/16 at 14:00 Potassium Phosphate 2000 mg 2,000 mg UNSCH PRN PO/TUBE SEE LABEL COMMENTS; Start 06/22/16 at 14:00 Potassium Phosphate/Sodium Chloride (Potassium Phosphate Inj/NS 250 ml Inj) 260 ml @ 42 mls/hr UNSCH PRN IV SEE LABEL COMMENTS; Start 06/22/16 at 14:00 Medical Decision Making MDM Remarks Last Impressions Chest X-Ray 06/21/16 0752 Signed Impressions: Service Date/Time: Tuesday, June 21, 2016 07:55 - CONCLUSION: Perihilar interstitial/alveolar prominence. Mild air space disease left lung base. Satisfactory position of endotracheal and nasogastric tubes. Avila Lake MD Head CT 06/21/16 0000 Signed Impressions: Service Date/Time: Tuesday, June 21, 2016 08:39 - CONCLUSION: Large parenchymal hemorrhage of the left cerebellar hemisphere with midline shift and mass effect on the brainstem. There is a large amount of posterior fossa and supratentorial subarachnoid blood. Deondre Coronado MD Attending Statement Continue neuro checks in a serial fashion. She has anoxic encephalopathy. A surgical intervention is not appropriate. Apnea test today for the termination of the brain Respiratory failure. Full mechanical ventilation in assist control mode of ventilation, pulmonary toilette, nasotracheal suction, and breathing treatments with nebulizers. PT and OT eval Nutrition. NPO Renal. monitor closely urine output, BUN and creatinine Endocrine. Monitor serial Acu checks and SSI for tight control ID monitor for signs of infection Protonix for stress ulcer prophylaxis Nikita hose and SCD's for DVT prophylaxis Quentin Matamoros MD Jun 22, 2016 14:22
[2016-06-22] MEDS: SODIUM CHLOR 0.45% 1000 ML INJ 1,000 ML IV SCH (18:10)
[2016-06-22] MEDS: VASOPRESSIN INJ 40 UNITS in DEXTROSE 5% IN WATER 100ML INJ 98 ML IV SCH ×2 (18:26)
[2016-06-22] MEDS: FAMOTIDINE 20 MG/2 ML VIAL IV PUSH SCH (21:16)
[2016-06-23] VITALS (13 sets, daily range): BP systolic 89–113; BP diastolic 51–64; PULSE 102–110; RESP 12; TEMP 97.4–99.1; O2SAT 92–98
[2016-06-23] MEDS: CHLORHEXIDINE GLUCONATE 2 % 1 PACK (2 CLOTHS) TOP SCH (04:00)
[2016-06-23] MEDS: DOPamine INJ PREMIX 500 ML IV SCH ×5 (04:22→20:36)
[2016-06-23 04:40] LABS: BASOPHIL % 0.3 % (0.0-2.0); EOSINOPHIL # 0.6 TH/MM3 (0-0.4); EOSINOPHIL % 5.4 % (0.0-4.0); HEMATOCRIT 34.8 % (35.0-46.0); HEMO FLAGS DIFF FINAL; LYMPHOCYTE # 2.1 TH/MM3 (1.0-4.8); MEAN CELL VOLUME 89.5 FL (80.0-100.0); MEAN CORPUSCULAR HEMOGLOBIN 28.2 PG (27.0-34.0); MEAN CORPUSCULAR HGB CONC 31.5 % (32.0-36.0); MONO % 6.9 % (0.0-8.0); NEUT % 69.4 % (16.0-70.0); PLATELET COUNT 190 TH/MM3 (150-450); RED BLOOD COUNT 3.89 MIL/MM3 (4.00-5.30); WHITE BLOOD COUNT 11.4 TH/MM3 (4.0-11.0)
[2016-06-23 05:08] LABS: ALKALINE PHOSPHATASE 84 U/L (45-117); ALT (GPT) 269 U/L (10-53); ANION GAP 7 MEQ/L (5-15); AST (GOT) 139 U/L (15-37); BICARBONATE 28.4 MEQ/L (21.0-32.0); BLOOD UREA NITROGEN 20 MG/DL (7-18); CHLORIDE 130 MEQ/L (98-107); GLOMERULAR FILTRATION RATE 37 ML/MIN (>89); MAGNESIUM 2.1 MG/DL (1.5-2.5); POTASSIUM 4.2 MEQ/L (3.5-5.1); TOTAL BILIRUBIN ADULT 0.3 MG/DL (0.2-1.0)
[2016-06-23 05:13] LABS: SODIUM (NA) 165 MEQ/L (136-145)
[2016-06-23] MEDS: DOCUSATE SODIUM 100 MG/10 ML UDC G-TUBE SCH ×2 (08:07→20:36)
[2016-06-23] MEDS: SODIUM CHLORIDE 0.9% FLUSH 5 ML FLUSH IV FLUSH SCH ×2 (08:07→20:36)
[2016-06-23] MEDS: ARTIFICIAL TEARS OPTH SOLN 15 ML BTL EACH EYE SCH ×3 (08:07→17:52)
[2016-06-23] MEDS: SODIUM CHLOR 0.45% 1000 ML INJ 1,000 ML IV SCH ×3 (08:07→14:09)
[2016-06-23] MEDS: FAMOTIDINE 20 MG/2 ML VIAL IV PUSH SCH ×2 (08:47→20:36)
--- NOTE | 2016-06-23 13:23 | HHI.CCPN ---
Subjective Remarks/Hospital Course 65-year-old very unfortunate female presents brought in by EMS as a cardiac arrest. Patient was found unresponsive by family, CPR initiated by her aunt, and EMS arrived and continued CPR. After 2 rounds of epi and CPR, patient regained a pulse and has a sinus rhythm. She was intubated by EMS. However, down time is unknown and there is a very high probability of severe anoxic brain injury. Initial rhythm was asystole Objective Vital Signs Date Time Temp Pulse Resp B/P Pulse Ox O2 Delivery O2 Flow Rate FiO2 06/23/16 12:00 98.4 102 12 99/60 97 06/23/16 12:00 40 06/23/16 07:00 Mechanical Ventilator Intake and Output 06/22/16 06/22/16 06/23/16 08:00 16:00 00:00 Intake Total 1321 ml 1579 ml 2576 ml Output Total 1801 ml 1900 ml 1150 ml Balance -480 ml -321 ml 1426 ml Result Diagram: 06/23/16 0400 06/23/16 0400 Imaging Last 24 hours Impressions Chest X-Ray 06/21/16 0752 Signed Impressions: Service Date/Time: Tuesday, June 21, 2016 07:55 - CONCLUSION: Perihilar interstitial/alveolar prominence. Mild air space disease left lung base. Satisfactory position of endotracheal and nasogastric tubes. Avila Lake MD Head CT 06/21/16 0000 Signed Impressions: Service Date/Time: Tuesday, June 21, 2016 08:39 - CONCLUSION: Large parenchymal hemorrhage of the left cerebellar hemisphere with midline shift and mass effect on the brainstem. There is a large amount of posterior fossa and supratentorial subarachnoid blood. Deondre Coronado MD Chest X-Ray 06/21/16 0000 Signed Impressions: Service Date/Time: Tuesday, June 21, 2016 10:03 - CONCLUSION: 1. New right subclavian central venous catheter with tip in the superior vena cava. No pneumothorax or other acute complication demonstrated. 2. Other lines and tubes unchanged as above. 3. Bilateral infiltrates are modestly worse. Deondre Coronado MD Objective Remarks GENERAL: Well-nourished, well-developed patient comatose female. GCS 3 SKIN: Warm and dry. HEAD: Normocephalic. EYES: No scleral icterus. No injection or drainage. Pupils are fixed and dilated NECK: Supple, trachea midline. No JVD or lymphadenopathy. CARDIOVASCULAR: Regular rate and rhythm without murmurs, gallops, or rubs. RESPIRATORY: Breath sounds equal bilaterally. No accessory muscle use. GASTROINTESTINAL: Abdomen soft, non-tender, nondistended. MUSCULOSKELETAL: No cyanosis, or edema. BACK: Nontender without obvious deformity. No CVA tenderness. A/P Problem List: (1) Cardiac asystole ICD Code: I46.9 Status: Acute (2) respiratory failure Status: Acute (3) (highly probable) anoxic brain injury Status: Acute (4) cerebellar and subarachnoid hemorrhage Status: Acute Assessment and Plan Respiratory failure - Intubated for an airway protection - Continue mechanical ventilation - Continue duo nebs as needed - No weaning until neurologically improved - Apnea test yesterday with initiation of spontaneous breath Cardiac arrest - Due to large intracranial bleed - Following respiratory arrest - Severe Anoxic brain damage - Supportive care Hyponatremia -We'll test urine for possible DI due to brain injury - Free water through NG tube Hypotension - CVP line in place - Dopamine as needed to keep MAP above 65 - IV fluids Brain edema - Onetime mannitol dose in the ED - Supportive care - This is irreversible catastrophic brain damage Intracranial bleed - No coagulopathy - Monitor blood pressure - Not the candidate for surgical procedure due to underlying severe anoxic brain injury - Palliative care consult greatly appreciated DVT GI prophylaxis - Teds SCDs Pepcid Critical Care: The total critical care time was 35 minutes. Time to perform other separately billable procedures was not included in the critical care time. Adolfo Alcaraz MD Jun 23, 2016 13:23
[2016-06-23] MEDS: BENEPROTEIN POWDER 1 PACK G-TUBE SCH (17:52)
--- NOTE | 2016-06-23 19:56 | HHI.NSPN ---
Note Status Status: Progress Note Interval History Diagnosis posterior fosa hemorrhage, anoxic encephalopathy Interval History This is a 65-year-old female, with underlying schizophrenia and chronic knee pain, was found on the floor and cardiac arrest at home by her mother. The patient's mother and aunt report that the patient had not had any change in her usual health until recently. She has had difficulty getting around because of chronic knee pain/arthritis. She was found unresponsive, comatose on the floor. The amount of downtime on the floor prior to being found is unknown and cannot be known, as the mother found the patient after the mother got out of bed this morning. EMS arrived to find the patient in asystole, she was resuscitated according to the ACLS protocol. Following endotracheal intubation and 2 rounds of medications, return of spontaneous circulation. The patient remained unresponsive and was brought to the emergency department. GCS was 3. CT of the brain show a large posterior fossa hemorrhage. Neurosurgical consultation was requested 06/22. remains comatose. pupils duilated and fixed. GCS of 3 06/23. Nio changes. Apnea test showed iniciation of spontaneous breath Labs, Micro, & Vital Signs Results Date Time Temp Pulse Resp B/P Pulse Ox O2 Delivery O2 Flow Rate FiO2 06/23/16 19:00 97 Mechanical Ventilator 40 06/23/16 16:00 98.0 104 12 97/63 96 06/23/16 16:00 40 06/23/16 15:26 98 40 06/23/16 15:00 104 06/23/16 12:00 98.4 102 12 99/60 97 06/23/16 12:00 40 06/23/16 08:00 40 06/23/16 08:00 97.9 102 12 100/56 96 06/23/16 07:33 96 40 06/23/16 07:00 95 Mechanical Ventilator 40 06/23/16 07:00 104 06/23/16 04:00 98.6 110 12 95/51 93 06/23/16 04:00 40 06/23/16 03:44 97 40 06/23/16 00:00 40 06/23/16 00:00 99.1 110 12 89/58 92 06/23/16 00:00 94 40 06/22/16 23:00 111 06/22/16 20:18 94 40 06/22/16 20:00 96.6 101 12 81/52 95 06/22/16 20:00 40 06/23/16 07:00 Intake Total 5598 ml Output Total 3850 ml Balance 1748 ml Constitutional Vital Signs Date Time Temp Pulse Resp B/P Pulse Ox O2 Delivery O2 Flow Rate FiO2 06/23/16 19:00 97 Mechanical Ventilator 40 06/23/16 16:00 98.0 104 12 97/63 96 06/23/16 16:00 40 06/23/16 15:26 98 40 06/23/16 15:00 104 06/23/16 12:00 98.4 102 12 99/60 97 06/23/16 12:00 40 06/23/16 08:00 40 06/23/16 08:00 97.9 102 12 100/56 96 06/23/16 07:33 96 40 06/23/16 07:00 95 Mechanical Ventilator 40 06/23/16 07:00 104 06/23/16 04:00 98.6 110 12 95/51 93 06/23/16 04:00 40 06/23/16 03:44 97 40 06/23/16 00:00 40 06/23/16 00:00 99.1 110 12 89/58 92 06/23/16 00:00 94 40 06/22/16 23:00 111 06/22/16 20:18 94 40 06/22/16 20:00 96.6 101 12 81/52 95 06/22/16 20:00 40 06/23/16 07:00 Intake Total 5598 ml Output Total 3850 ml Balance 1748 ml Review of Systems/Exam Exam She is intubated,. No response to painful stimuli. GCS is 3 Cranial Nerves: Pupils equal, round, 6mm dilated and fixed. Eyes appear non- conjugated. There was no nystagmus, papilledema. Face musculature appeared symmetrical at rest. Face sensation, olfaction, visual lane, and hearing cannot be adequately assessed due to his neurological condition. The patient has no corneal reflex. She has no gag reflex. The sternocleidomastoid and trapezius are symmetrical. Cervical Spine: Her neck is soft, supple, without nuchal rigidity. Motor: No response to pain Reflexes: Deep tendon reflexes are abolished in the biceps, triceps, and brachioradialis, bilaterally, in the upper extremities. In the lower extremities, the patellar and ankles are absent bilaterally. There is a bilateral silent plantar response. There is no clonus Sensory: On examination there is no response to painful stimuli Cerebellar: Examination cannot be adequately assessed due to the patient's neurological condition. Medications Current Medications Current Medications IV Flush 2 ml 2 ml UNSCH PRN IVF FLUSH AFTER USING IV ACCESS; Start 06/21/16 at 08:00; Stop 06/21/16 at 14:04; Status DC Sodium Chloride 1,000 ml @ 999 mls/hr BOLUS ONCE IV Last administered on 06/21 08:20; Start 06/21/16 at 08:00; Stop 06/21/16 at 09:00; Status DC Sodium Chloride 1,000 ml @ 999 mls/hr BOLUS ONCE IV Last administered on 06/21 09:11; Start 06/21/16 at 09:15; Stop 06/21/16 at 10:17; Status DC Dopamine HCl/ Dextrose (DOPamine INJ PREMIX) 500 ml @ 0 mls/hr TITRATE IV Last administered on 06/21/16 09:10; Start 06/21/16 at 09:15; Stop 06/21/16 at 14:04 ; Status DC Terbutaline Sulfate 1 mg 1 mg UNSCH PRN SQ For Extravasation; Start 06/21/16 at 09:15 Sodium Bicarbonate/ Sterile Water (Sodium Bicarbonate 8.4% Inj/Sterile Water For Inj) 1,000 ml @ 150 mls/hr Q6H40M IV Last administered on 06/21/16 09:39 ; Start 06/21/16 at 09:15; Status Hold Sodium Bicarbonate (Sodium Bicarbonate 8.4% Inj) 50 meq ONCE ONCE IV PUSH Last administered on 06/21/16 09:40; Start 06/21/16 at 09:30; Stop 06/21/16 at 09:31; Status DC Sodium Bicarbonate (Sodium Bicarbonate 8.4% Inj) 50 meq ONCE ONCE IV PUSH Last administered on 06/21/16 09:40; Start 06/21/16 at 09:30; Stop 06/21/16 at 09:31; Status DC Sodium Bicarbonate 50 meq 50 meq ONCE ONCE IV PUSH Last administered on 09:40; Start 06/21/16 at 09:30; Stop 06/21/16 at 09:31; Status DC Sodium Chloride (NS 1000 ml Inj) 1,000 ml @ 185 mls/hr Q5H25M IV Last administered on 06/22/16 05:08; Start 06/21/16 at 09:56; Stop 06/22/16 at 17:21 ; Status DC IV Flush (NS Flush) 2 ml UNSCH PRN IV FLUSH FLUSH AFTER USING IV ACCESS; Start 06/21/16 at 10:00 IV Flush (NS Flush) 2 ml BID IV FLUSH Last administered on 06/22/16 21:16; Start 06/21/16 at 21:00 Acetaminophen (Tylenol) 650 mg Q6H PRN PO PAIN 1-10 AND/OR FEVER >101F; Start 06/21/16 at 10:00 Morphine Sulfate (Morphine Inj) 2 mg Q2H PRN IV PAIN SCALE 6 TO 10; Start 06/21 at 10:00 Famotidine (Pepcid Inj) 20 mg Q12HR IV PUSH Last administered on 06/21/16 19: 43; Start 06/21/16 at 21:00; Stop 06/22/16 at 09:25; Status DC Lorazepam (Ativan Inj) 1 mg Q1H PRN IV Agitation/Sedation; Start 06/21/16 at 10 :00 Artificial Tears (Tears Naturale Opth Soln) 1 drop TID EACH EYE Last administered on 06/23/16 17:52; Start 06/21/16 at 13:00 Ondansetron HCl (Zofran Inj) 4 mg Q6H PRN IV NAUSEA OR VOMITING; Start at 10:00 Metoclopramide HCl (Reglan Inj) 10 mg Q6H PRN IV NAUSEA OR VOMITING; Start 01/28 at 10:00 Docusate Sodium (Colace Liq) 100 mg Q12H G-TUBE ; Start 06/21/16 at 10:00 Albuterol/ Ipratropium (Duoneb Neb) 1 ampule Q2HR NEB PRN INH WHEEZING; Start 06/21/16 at 10:00 Miscellaneous Information 1 Q361D XX ; Start 06/21/16 at 10:00 Chlorhexidine Gluconate (Chlorhexidine 2% Cloth) 3 pack Taper DAILY@04 TOP Last administered on 06/23/16 04:00; Start 06/22/16 at 04:00; Stop 06/18/17 at 03:59 Chlorhexidine Gluconate 3 pack 3 pack UNSCH PRN TOP HYGIENIC CARE; Start at 10:00 Dopamine HCl/ Dextrose (DOPamine INJ PREMIX) 500 ml @ 0 mls/hr TITRATE IV Last administered on 06/23/16 17:52; Start 06/21/16 at 10:15 Terbutaline Sulfate 1 mg 1 mg UNSCH PRN SQ For Extravasation; Start 06/21/16 at 10:15 Mannitol (Osmitrol Inj) 450 ml @ 500 mls/hr Q54M ONCE IV Last administered on 06/21/16 13:37; Start 06/21/16 at 13:30; Stop 06/21/16 at 14:23; Status DC Famotidine 10 mg 10 mg Q12HR IV PUSH Last administered on 06/23/16 08:47; Start 06/22/16 at 21:00 Potassium Chloride 100 ml @ 50 mls/hr Q2H PRN IV For Potassium 2.8 - 3.2 mEq/ L Last administered on 06/22/16 16:02; Start 06/22/16 at 14:00 Potassium Chloride 100 ml @ 50 mls/hr Q2H PRN IV For Potassium 2.8 - 3.2 mEq/L ; Start 06/22/16 at 14:00 Potassium Chloride 100 ml @ 25 mls/hr UNSCH PRN IV For Potassium 3.3 - 3.5 mEq /L; Start 06/22/16 at 14:00 Potassium Chloride 100 ml @ 50 mls/hr Q2H PRN IV For Potassium 3.3 - 3.5 mEq/L ; Start 06/22/16 at 14:00 Magnesium Sulfate/ Sodium Chloride (Magnesium Sulfate Inj/NS Inj) 100 ml @ 50 mls/hr UNSCH PRN IV For Magnesium 0.9 - 1.1 mg/dL; Start 06/22/16 at 14:00 Magnesium Oxide 800 mg 800 mg UNSCH PRN PO For Magnesium 1.2 - 1.6 mg/dL; Start 06/22/16 at 14:00 Magnesium Sulfate/ Sodium Chloride (Magnesium Sulfate Inj/NS Inj) 100 ml @ 50 mls/hr UNSCH PRN IV For Magnesium 1.2 - 1.6 mg/dL; Start 06/22/16 at 14:00 Potassium Phosphate 2000 mg 2,000 mg Q4H PRN PO For Phosphorus < 2.5 mg/dL; Start 06/22/16 at 14:00 Sodium Phosphate/ Sodium Chloride (Sodium Phosphate Inj/NS 250 ml Inj) 250 ml @ 42 mls/hr UNSCH PRN IV For Phosphorus < 2.5 mg/dL; Start 06/22/16 at 14:00 Potassium Phosphate 2000 mg 2,000 mg UNSCH PRN PO/TUBE SEE LABEL COMMENTS; Start 06/22/16 at 14:00 Potassium Phosphate 30 mmol/ Sodium Chloride 260 ml @ 42 mls/hr UNSCH PRN IV SEE LABEL COMMENTS Last administered on 06/22/16 16:05; Start 06/22/16 at 14:00 Sodium Chloride 1,000 ml @ 125 mls/hr Q8H IV Last administered on 06/23/16 00 :00; Start 06/22/16 at 17:30 Vasopressin/ Dextrose (Pitressin Inj/ D5W 100 ml Inj) 100 ml @ 0 mls/hr Q0M IV Last administered on 06/23/16 00:00; Start 06/22/16 at 17:20 Protein (Beneprotein Powder) 2 pack TID G-TUBE Last administered on 06/23/16 17:52; Start 06/23/16 at 18:00 Medical Decision Making MDM Remarks Last Impressions Chest X-Ray 06/21/16751 Signed Impressions: Service Date/Time: Tuesday, June 21, 2016 07:55 - CONCLUSION: Perihilar interstitial/alveolar prominence. Mild air space disease left lung base. Satisfactory position of endotracheal and nasogastric tubes. Avila Lake MD Head CT 06/21/16 0000 Signed Impressions: Service Date/Time: Tuesday, June 21, 2016 08:39 - CONCLUSION: Large parenchymal hemorrhage of the left cerebellar hemisphere with midline shift and mass effect on the brainstem. There is a large amount of posterior fossa and supratentorial subarachnoid blood. Deondre Coronado MD Last Impressions Chest X-Ray 06/21/16751 Signed Impressions: Service Date/Time: Tuesday, June 21, 2016 07:55 - CONCLUSION: Perihilar interstitial/alveolar prominence. Mild air space disease left lung base. Satisfactory position of endotracheal and nasogastric tubes. Avila Lake MD Head CT 06/21/16 0000 Signed Impressions: Service Date/Time: Tuesday, June 21, 2016 08:39 - CONCLUSION: Large parenchymal hemorrhage of the left cerebellar hemisphere with midline shift and mass effect on the brainstem. There is a large amount of posterior fossa and supratentorial subarachnoid blood. Deondre Coronado MD Attending Statement Continue neuro checks. Although she had iniciation of a single spontaneous breath, her prognosis is very poor, as she was anoxic Respiratory failure. Continue mechanical ventilation in assist control mode of ventilation, pulmonary toilette, nasotracheal suction, and breathing treatments with nebulizers. PT and OT eval Nutrition. NPO Renal. monitor closely urine output, BUN and creatinine Endocrine. Monitor serial Acu checks and SSI for tight control ID monitor for signs of infection Protonix for stress ulcer prophylaxis Nikita townsend and SCD's for DVT prophylaxis Quentin Matamoros MD Jun 23, 2016 19:56
[2016-06-23] MEDS: VASOPRESSIN INJ 40 UNITS in DEXTROSE 5% IN WATER 100ML INJ 98 ML IV SCH ×4 (23:16)
[2016-06-24] VITALS (13 sets, daily range): BP systolic 88–131; BP diastolic 52–67; PULSE 106–114; RESP 12; TEMP 97.4–99; O2SAT 96–97
[2016-06-24] MEDS: SODIUM CHLOR 0.45% 1000 ML INJ 1,000 ML IV SCH ×3 (00:04→14:48)
[2016-06-24] MEDS: CHLORHEXIDINE GLUCONATE 2 % 1 PACK (2 CLOTHS) TOP SCH (03:07)
[2016-06-24 03:53] LABS: AUTOMATED NEUTROPHIL # 7.7 TH/MM3 (1.8-7.7); BASOPHIL # 0.1 TH/MM3 (0-0.2); BASOPHIL % 0.7 % (0.0-2.0); EOSINOPHIL # 0.6 TH/MM3 (0-0.4); EOSINOPHIL % 5.7 % (0.0-4.0); HEMATOCRIT 32.3 % (35.0-46.0); LYMPH % 14.5 % (9.0-44.0); LYMPHOCYTE # 1.5 TH/MM3 (1.0-4.8); MEAN CORPUSCULAR HEMOGLOBIN 28.3 PG (27.0-34.0); MEAN CORPUSCULAR HGB CONC 31.8 % (32.0-36.0); NEUT % 74.1 % (16.0-70.0); PLATELET COUNT 117 TH/MM3 (150-450); RED BLOOD COUNT 3.63 MIL/MM3 (4.00-5.30); WHITE BLOOD COUNT 10.3 TH/MM3 (4.0-11.0)
[2016-06-24 03:54] LABS: HEMO FLAGS AUTO DIFF
[2016-06-24 04:35] LABS: ALKALINE PHOSPHATASE 97 U/L (45-117); ALT (GPT) 203 U/L (10-53); ANION GAP 8 MEQ/L (5-15); AST (GOT) 74 U/L (15-37); BICARBONATE 24.3 MEQ/L (21.0-32.0); BLOOD UREA NITROGEN 15 MG/DL (7-18); CHLORIDE 115 MEQ/L (98-107); GLOMERULAR FILTRATION RATE 51 ML/MIN (>89); MAGNESIUM 1.6 MG/DL (1.5-2.5); POTASSIUM 4.3 MEQ/L (3.5-5.1); SODIUM (NA) 147 MEQ/L (136-145); TOTAL BILIRUBIN ADULT 0.4 MG/DL (0.2-1.0)
[2016-06-24 04:59] LABS: BANDS 51 % (0-6); DOHLE BODIES PRESENT (NONE SEEN); EOSINOPHILS 2 % (0-4); METAMYELOCYTES 7 % (0-1); NEUTROPHIL # MANUAL DIFF 9.2 TH/MM3 (1.8-7.7); PLATELET ESTIMATE SMEAR LOW (NORMAL); PLATELET MORPHOLOGY NORMAL (NORMAL); POLYS (SEG NEUTROPHILS) 31 % (16-70); SCAN/DIFF FINAL DIFF MANUAL; TOXIC GRANULATION 1+ (NORMAL); WBC DIFF SAMPLE 100
[2016-06-24] MEDS: DOPamine INJ PREMIX 500 ML IV SCH ×4 (04:59→21:27)
[2016-06-24 05:18] LABS: BLOOD GAS BASE EXCESS -3.5 mmol/L (-2-2); BLOOD GAS CARBOXYHEMOGLOBIN 0.9 % (0-4); BLOOD GAS HCO3 23 mmol/L (22-26); BLOOD GAS METHEMOGLOBIN 1.4 % (0-2); BLOOD GAS O2 HGB SATURATION 94 % (90-100); BLOOD GAS OXYGEN CONTENT 13.8 Vol % (12.0-20.0); BLOOD GAS PCO2 56 mmHg (38-42); BLOOD GAS PO2 85 mmHg (61-120); BLOOD GAS TOTAL HGB 10.4 G/DL (12.0-16.0); TEMP CORR TO 98.6
[2016-06-24 05:20] LABS: CRITICAL VALUE YES; DRAW SITE RT BRACHIAL; FIO2 40 %; NUMBER OF ARTERIAL PUNCTURES 1; OXYGEN DEVICE VENTILATOR; STAT NO
--- NOTE | 2016-06-24 06:05 | RADRPT ---
EXAM DATE/TIME: 06/24/2016 04:43 [facility] COMPARISON: CHEST SINGLE AP, June 21, 2016, 10:03. INDICATIONS : Respiratory failure. MEDICAL HISTORY : None. SURGICAL HISTORY : None. ENCOUNTER: Subsequent ACUITY: 3 days PAIN SCORE: Non-responsive. LOCATION: Bilateral chest FINDINGS: Single AP view of the chest. Endotracheal tube, nasogastric tube, and right sided [id number] remai n in place. Nasogastric tube side port in the distal esophagus. New medial left lower lobe atelectasis versus con solidation. The lungs are otherwise clear. Cardiomediastinal silhouette within normal limits. No evid ence of pleural effusion or pneumothorax. CONCLUSION: 1. Left lower lung opacity indicating atelectasis versus consolidation. 2. Nasogastric tube side-port in the distal esophagus. This could be advanced 10 cm. Jean-Paul Mata MD on June 24, 2016 at 6:01 Board Certified Radiologist. This report was verified electronically.
[2016-06-24] MEDS: FAMOTIDINE 20 MG/2 ML VIAL IV PUSH SCH ×2 (08:17→21:27)
[2016-06-24] MEDS: SODIUM CHLORIDE 0.9% FLUSH 5 ML FLUSH IV FLUSH SCH ×2 (08:17→21:28)
[2016-06-24] MEDS: ARTIFICIAL TEARS OPTH SOLN 15 ML BTL EACH EYE SCH ×3 (09:00→18:00)
[2016-06-24] MEDS: DOCUSATE SODIUM 100 MG/10 ML UDC G-TUBE SCH ×2 (09:09→21:28)
[2016-06-24] MEDS: BENEPROTEIN POWDER 1 PACK G-TUBE SCH ×3 (09:09→18:00)
--- NOTE | 2016-06-24 14:19 | HHI.CCPN ---
Subjective Remarks/Hospital Course 65-year-old very unfortunate female presents brought in by EMS as a cardiac arrest. Patient was found unresponsive by family, CPR initiated by her aunt, and EMS arrived and continued CPR. After 2 rounds of epi and CPR, patient regained a pulse and has a sinus rhythm. She was intubated by EMS. However, down time is unknown and there is a very high probability of severe anoxic brain injury. Initial rhythm was asystole SUBJ 06/24: Remains off sedation for several days. GCS remains 3. Apparently apnea test showed spontaneous breathing indicating patient not brain . Brother at the bedside requesting possible withdrawal of life support, if there is no chance of meaningful recovery. Objective Vital Signs Date Time Temp Pulse Resp B/P Pulse Ox O2 Delivery O2 Flow Rate FiO2 06/24/16 12:24 97 40 06/24/16 12:00 98.4 108 12 88/52 06/24/16 07:00 Mechanical Ventilator Intake and Output 06/23/16 06/23/16 06/24/16 08:00 16:00 00:00 Intake Total 1443 ml 2003 ml 2065 ml Output Total 800 ml 1750 ml 1300 ml Balance 643 ml 253 ml 765 ml Result Diagram: 06/24/16 0345 06/24/16 0345 Other Results Laboratory Tests Test 06/24/16 05:10 Blood Gas Puncture Site RT BRACHIAL Blood Gas Patient Temperature 98.6 Blood Gas HCO3 23 mmol/L (22-26) Blood Gas Base Excess -3.5 mmol/L (-2-2) Blood Gas Oxygen Saturation 94 % (90-100) Arterial Blood pH 7.24 (7.380-7.420) Arterial Blood Partial 56 mmHg (38-42) Pressure CO2 Arterial Blood Partial 85 mmHg Pressure O2 (61-120) Arterial Blood Oxygen Content 13.8 Vol % (12.0-20.0) Arterial Blood 0.9 % (0-4) Carboxyhemoglobin Arterial Blood Methemoglobin 1.4 % (0-2) Blood Gas Hemoglobin 10.4 G/DL (12.0-16.0) Oxygen Delivery Device VENTILATOR Blood Gas Ventilator Setting SEE COMMENT Blood Gas Inspired Oxygen 40 % Imaging Last 24 hours Impressions Chest X-Ray 06/21/16 0752 Signed Impressions: Service Date/Time: Tuesday, June 21, 2016 07:55 - CONCLUSION: Perihilar interstitial/alveolar prominence. Mild air space disease left lung base. Satisfactory position of endotracheal and nasogastric tubes. Avila Lake MD Head CT 06/21/16 Signed Impressions: Service Date/Time: Tuesday, June 21, 2016 08:39 - CONCLUSION: Large parenchymal hemorrhage of the left cerebellar hemisphere with midline shift and mass effect on the brainstem. There is a large amount of posterior fossa and supratentorial subarachnoid blood. Deondre Coronado MD Chest X-Ray 06/21/16 Signed Impressions: Service Date/Time: Tuesday, June 21, 2016 10:03 - CONCLUSION: 1. New right subclavian central venous catheter with tip in the superior vena cava. No pneumothorax or other acute complication demonstrated. 2. Other lines and tubes unchanged as above. 3. Bilateral infiltrates are modestly worse. Deondre Coronado MD Objective Remarks GENERAL: Well-nourished, well-developed patient comatose female. GCS 3 SKIN: Warm and dry. HEAD: Normocephalic. EYES: No scleral icterus. No injection or drainage. Pupils are fixed and dilated NECK: Supple, trachea midline. No JVD or lymphadenopathy. CARDIOVASCULAR: Regular rate and rhythm without murmurs, gallops, or rubs. RESPIRATORY: Breath sounds equal bilaterally. No accessory muscle use. GASTROINTESTINAL: Abdomen soft, non-tender, nondistended. MUSCULOSKELETAL: No cyanosis, or edema. BACK: Nontender without obvious deformity. No CVA tenderness. NEURO: Intubated not on any sedation. Pupils are fixed and dilated. No withdrawal to pain. No spontaneous movements Urinary Catheter: Yes Assessment to: Continue A/P Problem List: (1) Cardiac asystole ICD Code: I46.9 Status: Acute (2) respiratory failure Status: Acute (3) (highly probable) anoxic brain injury Status: Acute (4) cerebellar and subarachnoid hemorrhage Status: Acute Assessment and Plan Respiratory failure - Intubated for an airway protection - Continue mechanical ventilation - Continue duo nebs as needed - No weaning until neurologically improved - Apnea test showed initiation of spontaneous breath Cardiac arrest - Due to large intracranial bleed - Severe Anoxic brain damage - Supportive care Hypernatremia - Probable DI due to brain injury - Free water through NG tube Hypotension - CVP line in place - Dopamine as needed to keep MAP above 65 - IV fluids Brain edema - Onetime mannitol dose in the ED - Supportive care - This is irreversible catastrophic brain damage Intracranial bleed - No coagulopathy - Monitor blood pressure - Not a candidate for surgical procedure due to underlying severe anoxic brain injury - Palliative care consult greatly appreciated, DNR DVT GI prophylaxis - TEDs SCDs Pepcid Critical Care: Level 2 Ke Mendosa MD Jun 24, 2016 14:19
--- NOTE | 2016-06-24 14:54 | HHI.HCPN ---
Reason for visit a. To assist with evaluation and management of symptoms including: Encephalopathy, possible pain b. To assist medical decision maker(s) with: better understanding of current medical conditions; weighing benefits/burdens of medical treatment options; making medical treatment decisions. . Subjective/Interval History Pt doing clinically worse. Over the weekend hypernatremic. Worry about worsening brain damage. May need flow study. Brought Forward [facility] 06/21/2016. This 65-year-old female, with underlying schizophrenia and chronic knee pain, was found on the floor and cardiac arrest at home by her mother. The patient's mother and aunt report that the patient had not had any change in her usual health recently other than some weight cane over the past year or 2. She had difficulty getting around because of chronic knee pain/arthritis, but had had no recent change in mental status. The amount of downtime on the floor prior to being found is unknown and cannot be known, as the mother found the patient after the mother got out of bed this morning. The patient's aunt is present this week from [place], and she initiated CPR and called 911. Paramedics arrived to find the patient in asystole, but continued resuscitation efforts with intubation and 2 rounds of medication, then obtaining a return of spontaneous circulation. The patient remained unresponsive and was brought to the emergency department. Findings in the emergency department included: * Unresponsive * Temp 97.7, pulse 88, respirations 16 with the ventilator, blood pressure 68/46 * White count 10.2, hemoglobin 10.1 * Sodium 145, creatinine 1.25, albumin 2.4 * Troponin 0.16 * Initial ABG included pH 7.14 * Urine drug screen negative * Chest x-ray with bilateral infiltrates * CT brain scan with hemorrhage, including a large amount of subarachnoid blood , and a 3 x 5.2 cm left cerebellar hemorrhage, possibly a mass. There was a 9 mm left to right shift of the cerebellum, with mass effect on the brainstem. In the emergency department, the patient was placed on dopamine because of the persistent hypotension. She has remained completely unresponsive. The patient's maternal aunt, Renée Duff, is in town from [place] and staying at the patient's home with the patient's mother, and she is helpful in discussing the medical issues and choices with the patient's elderly mother. Palliative Care was consulted to assist with symptom management, and to enter into discussions with the patient's mother and aunt regarding the severity of the current condition, the prognosis, and the benefits and burdens of the various treatment options. . Family/friend interactions Spoke extensively with pt's mother and pt's brother. Long discussion with pt's mother and brother. Reviewed clinical history. Spoke to pt's mother about her worsening condition, and the poor prognosis, and she will not functionally recover, that she declining. Pt's brother, feels pt would not be connected to all these machines, and that it is not living. Pt mother however endorses, "I do not want the tubes taken out, and please give her a few days." Nurse was there when I tested for capacity. Pt mother got confused between 06/24/2016 and [birth year]24/[birth year]16. When I corrected her, and ask her again 5 min later in her conversation, she is able to say the correct date. She is oriented to place and person. She could remember her some parts of the conversation about life support, brain damage. Pt's brother endorse transition to comfort measures, pt's mother (who is health care proxy) says "I want to wait for a few days." Pt's brother feels, if we get pt's mother sister (aunt) Cristina Duff [phone] involve, we can facilitate further decisions with pt's mother. I did call Ms. Duff while, both pt's mother and pt's brother (Mr. Jáurez) was in the room, to she if she do a conference call. We got a voicemail, and I have left a voicemail. Advance Directives Living Will: Never completed Health Care Surrogate: Never completed Durable Power of Tubular Splitting Machine Tender: Never completed Objective Vital Signs Date Time Temp Pulse Resp B/P Pulse Ox O2 Delivery O2 Flow Rate FiO2 06/24/16 12:24 97 40 06/24/16 12:00 40 06/24/16 12:00 98.4 108 12 88/52 96 06/24/16 08:00 97 40 06/24/16 08:00 40 06/24/16 08:00 98.5 110 12 116/62 97 06/24/16 07:00 110 06/24/16 07:00 97 Mechanical Ventilator 40 06/24/16 04:00 99.0 114 12 108/61 96 06/24/16 04:00 40 06/24/16 03:44 96 40 06/24/16 00:00 40 06/24/16 00:00 97.4 106 12 109/66 97 06/23/16 23:00 106 06/23/16 22:20 98 40 06/23/16 20:00 97.4 105 12 113/64 98 06/23/16 20:00 40 06/23/16 19:00 97 Mechanical Ventilator 40 06/23/16 16:00 98.0 104 12 97/63 96 06/23/16 16:00 40 06/23/16 15:26 98 40 06/23/16 15:00 104 Physical Exam CONSTITUTIONAL/GENERAL: This is an adequately nourished patient, in no apparent distress. TUBES/LINES/DRAINS: Left subclavian line, Jha catheter, ET tube SKIN: No jaundice, rashes, or lesions. Ecchymoses on upper extremities. No wounds seen anteriorly. Skin temperature appropriate. Not diaphoretic. HEAD: Atraumatic. Normocephalic. EYES: Pupils equal and round but I can see no reactivity with light. No scleral icterus. No injection or drainage. Fundi not examined. ENT: Unable to assess hearing due to her clinical condition. Nose without bleeding or purulent drainage. NECK: Trachea midline. Supple, nontender. No palpable thyroid enlargement or nodularity. CARDIOVASCULAR: Regular rate and rhythm without murmurs, gallops, or rubs. No JVD. Peripheral pulses symmetric. RESPIRATORY/CHEST: Symmetric, unlabored respirations on the ventilator. Scattered rales bilateral. GASTROINTESTINAL: Abdomen soft, nondistended. No hepato-splenomegaly, or palpable masses. No guarding. Bowel sounds present. GENITOURINARY: Without palpable bladder distension. Jha catheter in place. MUSCULOSKELETAL: Extremities without clubbing, cyanosis, or edema. No calf tenderness. No mottling or clubbing. LYMPHATICS: No palpable cervical or supraclavicular adenopathy. NEUROLOGICAL: Unresponsive to voice and to tactile stimulation including painful stimulation. PSYCHIATRIC: Unable to assess due to clinical condition . Diagnostic Tests Laboratory Laboratory Tests Test 06/21/16 06/22/16 06/22/16 06/22/16 15:45 00:15 03:50 05:08 Nasal Screen MRSA (PCR) NEGATIVE (NEGATIVE) Total Bilirubin 0.3 MG/DL 0.3 MG/DL (0.2-1.0) (0.2-1.0) Direct Bilirubin 0.1 MG/DL (0.0-0.2) Indirect Bilirubin 0.2 MG/DL (0.0-0.8) Aspartate Amino Transf 600 U/L (15-37) 510 U/L (15-37) (AST/SGOT) Alanine Aminotransferase 459 U/L (10-53) 422 U/L (10-53) (ALT/SGPT) Alkaline Phosphatase 68 U/L (45-117) 73 U/L (45-117) Total Creatine Kinase 2977 U/L (26-192) Creatine Kinase MB 64.1 NG/ML (0.5-3.6) Creatine Kinase MB % 2.2 % (0.0-4.0) Troponin I 9.12 NG/ML (0.02-0.05) Total Protein 6.2 GM/DL 6.2 GM/DL (6.4-8.2) (6.4-8.2) Albumin 2.5 GM/DL 2.4 GM/DL (3.4-5.0) (3.4-5.0) White Blood Count 11.4 TH/MM3 (4.0-11.0) Red Blood Count 4.03 MIL/MM3 (4.00-5.30) Hemoglobin 11.4 GM/DL (11.6-15.3) Hematocrit 34.8 % (35.0-46.0) Mean Corpuscular Volume 86.3 FL (80.0-100.0) Mean Corpuscular Hemoglobin 28.3 PG (27.0-34.0) Mean Corpuscular Hemoglobin 32.8 % Concent (32.0-36.0) Red Cell Distribution Width 13.6 % (11.6-17.2) Platelet Count 269 TH/MM3 (150-450) Mean Platelet Volume 8.0 FL (7.0-11.0) Neutrophils (%) (Auto) 74.2 % (16.0-70.0) Lymphocytes (%) (Auto) 16.5 % (9.0-44.0) Monocytes (%) (Auto) 6.9 % (0.0-8.0) Eosinophils (%) (Auto) 2.0 % (0.0-4.0) Basophils (%) (Auto) 0.4 % (0.0-2.0) Neutrophils # (Auto) 8.5 TH/MM3 (1.8-7.7) Lymphocytes # (Auto) 1.9 TH/MM3 (1.0-4.8) Monocytes # (Auto) 0.8 TH/MM3 (0-0.9) Eosinophils # (Auto) 0.2 TH/MM3 (0-0.4) Basophils # (Auto) 0.0 TH/MM3 (0-0.2) CBC Comment DIFF FINAL Differential Comment Prothrombin Time 12.3 SEC (9.8-11.6) Prothromb Time International 1.1 RATIO Ratio Activated Partial 29.6 SEC Thromboplast Time (24.3-30.1) Sodium Level 162 MEQ/L (136-145) Potassium Level 2.7 MEQ/L (3.5-5.1) Chloride Level 127 MEQ/L (98-107) Carbon Dioxide Level 26.1 MEQ/L (21.0-32.0) Anion Gap 9 MEQ/L (5-15) Blood Urea Nitrogen 23 MG/DL (7-18) Creatinine 1.59 MG/DL (0.50-1.00) Estimat Glomerular Filtration 39 ML/MIN (>89) Rate Random Glucose 138 MG/DL (74-106) Calcium Level 8.2 MG/DL (8.5-10.1) Phosphorus Level 0.4 MG/DL (2.5-4.9) Magnesium Level 2.2 MG/DL (1.5-2.5) Blood Gas Puncture Site RT BRACHIAL Blood Gas Patient Temperature 98.6 Blood Gas HCO3 23 mmol/L (22-26) Blood Gas Base Excess 0.7 mmol/L (-2-2) Blood Gas Oxygen Saturation 96 % (90-100) Arterial Blood pH 7.55 (7.380-7.420) Arterial Blood Partial 26 mmHg (38-42) Pressure CO2 Arterial Blood Partial 97 mmHg Pressure O2 (61-120) Arterial Blood Oxygen Content 16.5 Vol % (12.0-20.0) Arterial Blood 0.9 % (0-4) Carboxyhemoglobin Arterial Blood Methemoglobin 1.0 % (0-2) Blood Gas Hemoglobin 12.2 G/DL (12.0-16.0) Oxygen Delivery Device VENTILATOR Blood Gas Ventilator Setting PRVC20/500/1.0/+5 Blood Gas Inspired Oxygen 50 % Test 06/22/16 06/22/16 06/23/16 06/23/16 10:25 23:35 04:00 14:15 Blood Gas Puncture Site LT RADIAL Blood Gas Patient Temperature 98.6 Blood Gas HCO3 25 mmol/L (22-26) Blood Gas Base Excess 0.7 mmol/L (-2-2) Blood Gas Oxygen Saturation 95 % (90-100) Arterial Blood pH 7.41 (7.380-7.420) Arterial Blood Partial 40 mmHg (38-42) Pressure CO2 Arterial Blood Partial 92 mmHg Pressure O2 (61-120) Arterial Blood Oxygen Content 17.3 Vol % (12.0-20.0) Arterial Blood 0.6 % (0-4) Carboxyhemoglobin Arterial Blood Methemoglobin 0.7 % (0-2) Blood Gas Hemoglobin 12.9 G/DL (12.0-16.0) Oxygen Delivery Device VENTILATOR Blood Gas Ventilator Setting PRVC/VT450/R12/P5 Blood Gas Inspired Oxygen 50 % Potassium Level 4.4 MEQ/L 4.2 MEQ/L (3.5-5.1) (3.5-5.1) White Blood Count 11.4 TH/MM3 (4.0-11.0) Red Blood Count 3.89 MIL/MM3 (4.00-5.30) Hemoglobin 11.0 GM/DL (11.6-15.3) Hematocrit 34.8 % (35.0-46.0) Mean Corpuscular Volume 89.5 FL (80.0-100.0) Mean Corpuscular Hemoglobin 28.2 PG (27.0-34.0) Mean Corpuscular Hemoglobin 31.5 % Concent (32.0-36.0) Red Cell Distribution Width 14.0 % (11.6-17.2) Platelet Count 190 TH/MM3 (150-450) Mean Platelet Volume 8.3 FL (7.0-11.0) Neutrophils (%) (Auto) 69.4 % (16.0-70.0) Lymphocytes (%) (Auto) 18.0 % (9.0-44.0) Monocytes (%) (Auto) 6.9 % (0.0-8.0) Eosinophils (%) (Auto) 5.4 % (0.0-4.0) Basophils (%) (Auto) 0.3 % (0.0-2.0) Neutrophils # (Auto) 8.0 TH/MM3 (1.8-7.7) Lymphocytes # (Auto) 2.1 TH/MM3 (1.0-4.8) Monocytes # (Auto) 0.8 TH/MM3 (0-0.9) Eosinophils # (Auto) 0.6 TH/MM3 (0-0.4) Basophils # (Auto) 0.0 TH/MM3 (0-0.2) CBC Comment DIFF FINAL Differential Comment Sodium Level 165 MEQ/L (136-145) Chloride Level 130 MEQ/L (98-107) Carbon Dioxide Level 28.4 MEQ/L (21.0-32.0) Anion Gap 7 MEQ/L (5-15) Blood Urea Nitrogen 20 MG/DL (7-18) Creatinine 1.68 MG/DL (0.50-1.00) Estimat Glomerular Filtration 37 ML/MIN (>89) Rate Random Glucose 152 MG/DL (74-106) Calcium Level 7.8 MG/DL (8.5-10.1) Phosphorus Level 4.0 MG/DL (2.5-4.9) Magnesium Level 2.1 MG/DL (1.5-2.5) Total Bilirubin 0.3 MG/DL (0.2-1.0) Aspartate Amino Transf 139 U/L (15-37) (AST/SGOT) Alanine Aminotransferase 269 U/L (10-53) (ALT/SGPT) Alkaline Phosphatase 84 U/L (45-117) Total Protein 5.7 GM/DL (6.4-8.2) Albumin 2.0 GM/DL (3.4-5.0) Urine Specific [place] 1.009 (1.002-1.035) Test 06/24/16 06/24/16 03:45 05:10 White Blood Count 10.3 TH/MM3 (4.0-11.0) Red Blood Count 3.63 MIL/MM3 (4.00-5.30) Hemoglobin 10.3 GM/DL (11.6-15.3) Hematocrit 32.3 % (35.0-46.0) Mean Corpuscular Volume 89.0 FL (80.0-100.0) Mean Corpuscular Hemoglobin 28.3 PG (27.0-34.0) Mean Corpuscular Hemoglobin 31.8 % Concent (32.0-36.0) Red Cell Distribution Width 14.0 % (11.6-17.2) Platelet Count 117 TH/MM3 (150-450) Mean Platelet Volume 8.0 FL (7.0-11.0) Neutrophils (%) (Auto) 74.1 % (16.0-70.0) Lymphocytes (%) (Auto) 14.5 % (9.0-44.0) Monocytes (%) (Auto) 5.0 % (0.0-8.0) Eosinophils (%) (Auto) 5.7 % (0.0-4.0) Basophils (%) (Auto) 0.7 % (0.0-2.0) Neutrophils # (Auto) 7.7 TH/MM3 (1.8-7.7) Lymphocytes # (Auto) 1.5 TH/MM3 (1.0-4.8) Monocytes # (Auto) 0.5 TH/MM3 (0-0.9) Eosinophils # (Auto) 0.6 TH/MM3 (0-0.4) Basophils # (Auto) 0.1 TH/MM3 (0-0.2) CBC Comment AUTO DIFF Differential Total Cells 100 Counted Neutrophils % (Manual) 31 % (16-70) Band Neutrophils % 51 % (0-6) Lymphocytes % 6 % (9-44) Monocytes % 3 % (0-8) Eosinophils % 2 % (0-4) Neutrophils # (Manual) 9.2 TH/MM3 (1.8-7.7) Metamyelocytes 7 % (0-1) Differential Comment FINAL DIFF MANUAL Toxic Granulation 1+ (NORMAL) Dohle Bodies PRESENT (NONE SEEN) Platelet Estimate LOW (NORMAL) Platelet Morphology Comment NORMAL (NORMAL) Sodium Level 147 MEQ/L (136-145) Potassium Level 4.3 MEQ/L (3.5-5.1) Chloride Level 115 MEQ/L (98-107) Carbon Dioxide Level 24.3 MEQ/L (21.0-32.0) Anion Gap 8 MEQ/L (5-15) Blood Urea Nitrogen 15 MG/DL (7-18) Creatinine 1.27 MG/DL (0.50-1.00) Estimat Glomerular Filtration 51 ML/MIN (>89) Rate Random Glucose 168 MG/DL (74-106) Calcium Level 8.0 MG/DL (8.5-10.1) Phosphorus Level 3.8 MG/DL (2.5-4.9) Magnesium Level 1.6 MG/DL (1.5-2.5) Total Bilirubin 0.4 MG/DL (0.2-1.0) Aspartate Amino Transf 74 U/L (15-37) (AST/SGOT) Alanine Aminotransferase 203 U/L (10-53) (ALT/SGPT) Alkaline Phosphatase 97 U/L (45-117) Total Protein 5.7 GM/DL (6.4-8.2) Albumin 1.9 GM/DL (3.4-5.0) Blood Gas Puncture Site RT BRACHIAL Blood Gas Patient Temperature 98.6 Blood Gas HCO3 23 mmol/L (22-26) Blood Gas Base Excess -3.5 mmol/L (-2-2) Blood Gas Oxygen Saturation 94 % (90-100) Arterial Blood pH 7.24 (7.380-7.420) Arterial Blood Partial 56 mmHg (38-42) Pressure CO2 Arterial Blood Partial 85 mmHg Pressure O2 (61-120) Arterial Blood Oxygen Content 13.8 Vol % (12.0-20.0) Arterial Blood 0.9 % (0-4) Carboxyhemoglobin Arterial Blood Methemoglobin 1.4 % (0-2) Blood Gas Hemoglobin 10.4 G/DL (12.0-16.0) Oxygen Delivery Device VENTILATOR Blood Gas Ventilator Setting SEE COMMENT Blood Gas Inspired Oxygen 40 % Result Diagram: 06/24/16 0345 06/24/16 0345 Procedures INTUBATION 06/21/16 . Assessment and Plan Disease Oriented Problem List: (1) cerebellar and subarachnoid hemorrhage (2) cardiorespiratory arrest, cardiac resuscitation (3) 9 mm left to right shift of the cerebellum, with mass effect on brainstem (4) (highly probable) anoxic brain injury (5) respiratory failure (6) bilateral pulmonary infiltrates, suspected aspiration (7) schizophrenia since age 17, currently being managed with periodic injections of a long-acting medication (8) chronic knee pain, arthritis Symptom Scale: (1) pain 0-10 Scale: Unable to quantify (2) dyspnea 0-10 Scale: Unable to quantify Pertinent Non-Medical Issues Psychosocial: Never , disabled due to schizophrenia, lives in a home with her elderly mother and the patient's brother. Spiritual: She attends services regularly at the [facility]. Legal: The patient lacks capacity for decision making, and she will not regain that capacity. The patient is unmarried and has no children, and her proxy decision maker is her mother. Ethical issues impacting care: None. . Important Contacts Patient's mother: Magail Meeks Home: - Patient's maternal aunt, Renée Duff (VERY HELPFUL) . Prognosis The prognosis is dismal. In addition to the significant hemorrhage and left to right shift of the brainstem, there is an apparent anoxic brain injury. She is currently being supported artificially via mechanical ventilation and pressor agents. She is certainly appropriate for transition to comfort measures and end -of-life care. . Code Status: No Code Plan * DO NOT RESUSCITATE, per patient's mother and aunt Renée on 06/21/16 * DECISION-MAKING: The patient lacks capacity for decision making, and she will not regain that capacity. The patient is unmarried and has no children, and her proxy decision maker is her mother (seems to have some capacity). "I do not want the tubes taken out, and please give her a few days." At least on initial conversation; Pt's mother, is able to recall that pt is on life support , and if pt is taken off, will . * GOALS: The patient's mother and her aunt Renée are in agreement that, when the patient suffers the next cardiac arrest, "we will let her go peacefully ," with no further resuscitation. The patient's mother is not yet ready to address the idea of withdrawal of life support. Aunt Renée Duff (see phone number above) is VERY HELPFUL in the discussions with her sister ( the patient's mother), as she has had experience in the healthcare field and with end-of-life situations in other family members. * Long discussion with pt's mother and brother. Reviewed clinical history. Spoke to pt's mother about her worsening condition, and the poor prognosis, and she will not functionally recover, that she declining. Pt's brother, feels pt would not be connected to all these machines, and that it is not living. Pt mother however endorses, "I do not want the tubes taken out, and please give her a few days." Nurse was there when I tested for capacity. Pt mother got confused between 06/24/2016 and 06/24/1918. When I corrected her, and ask her again 5 min later in her conversation, she is able to say the correct date. She is oriented to place and person. She could remember her some parts of the conversation about life support, brain damage. Pt's brother endorse transition to comfort measures, pt's mother (who is health care proxy) says "I want to wait for a few days." Pt's brother feels, if we get pt's mother sister (aunt) Cristina Duff [phone] involve, we can facilitate further decisions with pt's mother. I did call Ms. Duff while, both pt's mother and pt's brother (Mr. Marcos Juárez) was in the room, but only got a voicemail, and I have left a voicemail. I spoke with Ms. Duff over the phone on 3:54 pm, and state she will call Magali Meeks (pts mom) about pt again. I told her that Magali would need to sign something if she is to be withdrawn. Ms. Duff knows the poor prognosis and possible brain . Ms. Duff state she feels Magali (pt's mom) although have some memory problems , could make decisions. She says she can still make decisions, remembers her birthday (which was yesterday). She feels it is just that "Jose Luis does not want to face losing another child." I will touch base with pt's mom and son tomorrow, and see if after having Ms. Duff talking to her, mom will be open to transitioning to comfort care. Pt' s brother endorses pt would want to transition to comfort measures only at this point. * SYMPTOMS: The patient is completely unresponsive, and there is no obvious pain or dyspnea at this time. I have no specific medication recommendations. * The subject of withdrawal of life support to allow a peaceful and natural will be readdressed with the patient's mother in the upcoming days; will need to get Ms. Duff (pt's aunt involve). * Palliative Care will continue to follow the patient during this hospitalization. d/w with web developer and neurosurgery. . Time Spent Total Floor Time (mins): 60 Face to Face Time (mins): 30 Attestation To help prompt me to consider important information that might be impacting today's encounter and assessment, information from prior notes written by myself or my colleagues may have been "brought forward" into today's note. My signature on this note, however, is an attestation that I personally performed the exam, history, and/or decision-making noted today, and, unless otherwise indicated, the interactions with patient, family, and staff as well as the review of records all occurred today. I also attest that the listed assessment and stated plan reflect my best clinical judgment today based on the combination of historical information, prior notes, and today's exam/ interactions. When time spent is documented, it refers only to time spent today by the signer, or if indicated, combined time spent today by collaborating physician/nurse practitioner. Richard Warner MD Jun 24, 2016 14:54
--- NOTE | 2016-06-24 16:46 | HHI.NSPN ---
(Deanna Rodriguez) Note Status Status: Progress Note (Deanna Rodriguez) Interval History Interval History This is a 65-year-old female, with underlying schizophrenia and chronic knee pain, was found on the floor and cardiac arrest at home by her mother. The patient's mother and aunt report that the patient had not had any change in her usual health until recently. She has had difficulty getting around because of chronic knee pain/arthritis. She was found unresponsive, comatose on the floor. The amount of downtime on the floor prior to being found is unknown and cannot be known, as the mother found the patient after the mother got out of bed this morning. EMS arrived to find the patient in asystole, she was resuscitated according to the ACLS protocol. Following endotracheal intubation and 2 rounds of medications, return of spontaneous circulation. The patient remained unresponsive and was brought to the emergency department. GCS was 3. CT of the brain show a large posterior fossa hemorrhage. Neurosurgical consultation was requested 06/22. remains comatose. pupils duilated and fixed. GCS of 3 06/24: no sedation, no eye opening, pupils remains dilated and unresponsive. ( Deanna Rodriguez) Labs, Micro, & Vital Signs Results Date Time Temp Pulse Resp B/P Pulse Ox O2 Delivery O2 Flow Rate FiO2 06/24/16 16:00 98.0 107 12 131/67 97 06/24/16 16:00 40 06/24/16 15:00 106 06/24/16 12:24 97 40 06/24/16 12:00 40 06/24/16 12:00 98.4 108 12 88/52 96 06/24/16 08:00 97 40 06/24/16 08:00 40 06/24/16 08:00 98.5 110 12 116/62 97 06/24/16 07:00 110 06/24/16 07:00 97 Mechanical Ventilator 40 06/24/16 04:00 99.0 114 12 108/61 96 06/24/16 04:00 40 06/24/16 03:44 96 40 06/24/16 00:00 40 06/24/16 00:00 97.4 106 12 109/66 97 06/23/16 23:00 106 06/23/16 22:20 98 40 06/23/16 20:00 97.4 105 12 113/64 98 06/23/16 20:00 40 06/23/16 19:00 97 Mechanical Ventilator 40 06/24/16 07:00 Intake Total 6100 ml Output Total 3850 ml Balance 2250 ml Constitutional Vital Signs Date Time Temp Pulse Resp B/P Pulse Ox O2 Delivery O2 Flow Rate FiO2 06/24/16 16:00 98.0 107 12 131/67 97 06/24/16 16:00 40 06/24/16 15:00 106 06/24/16 12:24 97 40 06/24/16 12:00 40 06/24/16 12:00 98.4 108 12 88/52 96 06/24/16 08:00 97 40 06/24/16 08:00 40 06/24/16 08:00 98.5 110 12 116/62 97 06/24/16 07:00 110 06/24/16 07:00 97 Mechanical Ventilator 40 06/24/16 04:00 99.0 114 12 108/61 96 06/24/16 04:00 40 06/24/16 03:44 96 40 06/24/16 00:00 40 06/24/16 00:00 97.4 106 12 109/66 97 06/23/16 23:00 106 06/23/16 22:20 98 40 06/23/16 20:00 97.4 105 12 113/64 98 06/23/16 20:00 40 06/23/16 19:00 97 Mechanical Ventilator 40 06/24/16 07:00 Intake Total 6100 ml Output Total 3850 ml Balance 2250 ml (Deanna Rodriguez) Review of Systems/Exam Exam Ms. Meeks is intubated, no sedatives. She does not open eyes. Cranial Nerves: Pupils equal, round, 6mm dilated and fixed, no reaction to light. Eyes appear non-conjugated. Absent corneal b/l, absent oculocephalic, no cough or gag. Cervical Spine: soft, supple Sensorimotor: slight right shoulder shrug seen to deep pain, otherwise no movements to extremities or localization to pain stimuli x 4 extremities Reflexes: Deep tendon reflexes are absent in the biceps, triceps, and brachioradialis, bilaterally, in the upper extremities. In the lower extremities, the patellar and ankles are absent bilaterally. There is a bilateral silent plantar response. There is no clonus Cerebellar: Examination cannot be adequately assessed due to the patient's neurological condition. (Deanna Rodriguez) Exam She is intubated,. No response to painful stimuli. GCS is 3 Cranial Nerves: Pupils equal, round, 6mm dilated and fixed. Eyes appear non- conjugated. There was no nystagmus, papilledema. Face musculature appeared symmetrical at rest. Face sensation, olfaction, visual lane, and hearing cannot be adequately assessed due to his neurological condition. The patient has no corneal reflex. She has no gag reflex. The sternocleidomastoid and trapezius are symmetrical. Cervical Spine: Her neck is soft, supple, without nuchal rigidity. Motor: No response to pain Reflexes: Deep tendon reflexes are abolished in the biceps, triceps, and brachioradialis, bilaterally, in the upper extremities. In the lower extremities, the patellar and ankles are absent bilaterally. There is a bilateral silent plantar response. There is no clonus Sensory: On examination there is no response to painful stimuli Cerebellar: Examination cannot be adequately assessed due to the patient's neurological condition. (Quentin Matamoros MD) Medications Current Medications Current Medications Medications (Trade) Dose Ordered Sig/Gee Route PRN Reason Start Time Stop Time Status Last Admin Dose Admin Terbutaline Sulfate 1 mg 1 mg UNSCH PRN SQ For Extravasation 06/21/16 09:15 Sodium Bicarbonate/ Sterile Water (Sodium Bicarbonate 8.4% Inj/Sterile Water For Inj) 1,000 ml @ 150 mls/hr Q6H40M IV 06/21/16 09:15 Hold 06/21/16 09:39 IV Flush (NS Flush) 2 ml UNSCH PRN IV FLUSH FLUSH AFTER USING IV ACCESS 06/21/16 10:00 IV Flush (NS Flush) 2 ml BID IV FLUSH 06/21/16 21:00 06/24/16 08:17 Acetaminophen (Tylenol) 650 mg Q6H PRN PO PAIN 1-10 AND/OR FEVER >101F 06/21/16 10:00 Morphine Sulfate (Morphine Inj) 2 mg Q2H PRN IV PAIN SCALE 6 TO 10 06/21/16 10:00 Lorazepam (Ativan Inj) 1 mg Q1H PRN IV Agitation/Sedation 06/21/16 10:00 06/24/16 08:18 Artificial Tears (Tears Naturale Opth Soln) 1 drop TID EACH EYE 06/21/16 13:00 06/23/16 17:52 Ondansetron HCl (Zofran Inj) 4 mg Q6H PRN IV NAUSEA OR VOMITING 06/21/16 10:00 Metoclopramide HCl (Reglan Inj) 10 mg Q6H PRN IV NAUSEA OR VOMITING 06/21/16 10:00 Docusate Sodium (Colace Liq) 100 mg Q12H G-TUBE 06/21/16 10:00 Miscellaneous Information 1 Q361D XX 06/21/16 10:00 Chlorhexidine Gluconate (Chlorhexidine 2% Cloth) 3 pack Taper DAILY@04 TOP 06/22/16 04:00 06/18/17 03:59 06/23/16 04:00 Chlorhexidine Gluconate 3 pack 3 pack UNSCH PRN [facility] 06/21/16 10:00 Dopamine HCl/ Dextrose (DOPamine INJ PREMIX) 500 ml @ 0 mls/hr TITRATE IV 06/21/16 10:15 06/24/16 11:49 Terbutaline Sulfate (Brethine Inj) 1 mg UNSCH PRN SQ For Extravasation 06/21/16 10:15 Famotidine 10 mg 10 mg Q12HR IV PUSH 06/22/16 21:00 06/24/16 08:17 Potassium Chloride 100 ml @ 50 mls/hr Q2H PRN IV For Potassium 2.8 - 3.2 mEq/L 06/22/16 14:00 06/22/16 16:02 Potassium Chloride 100 ml @ 50 mls/hr Q2H PRN IV For Potassium 2.8 - 3.2 mEq/L 06/22/16 14:00 Potassium Chloride 100 ml @ 25 mls/hr UNSCH PRN IV For Potassium 3.3 - 3.5 mEq/L 06/22/16 14:00 Potassium Chloride 100 ml @ 50 mls/hr Q2H PRN IV For Potassium 3.3 - 3.5 mEq/L 06/22/16 14:00 Magnesium Sulfate/ Sodium Chloride (Magnesium Sulfate Inj/NS Inj) 100 ml @ 50 mls/hr UNSCH PRN IV For Magnesium 0.9 - 1.1 mg/dL 06/22/16 14:00 Magnesium Oxide 800 mg 800 mg UNSCH PRN PO For Magnesium 1.2 - 1.6 mg/dL 06/22/16 14:00 Magnesium Sulfate/ Sodium Chloride (Magnesium Sulfate Inj/NS Inj) 100 ml @ 50 mls/hr UNSCH PRN IV For Magnesium 1.2 - 1.6 mg/dL 06/22/16 14:00 Potassium Phosphate 2000 mg 2,000 mg Q4H PRN PO For Phosphorus < 2.5 mg/dL 06/22/16 14:00 Sodium Phosphate/ Sodium Chloride (Sodium Phosphate Inj/NS 250 ml Inj) 250 ml @ 42 mls/hr UNSCH PRN IV For Phosphorus < 2.5 mg/dL 06/22/16 14:00 Potassium Phosphate 2000 mg 2,000 mg UNSCH PRN PO/TUBE SEE LABEL COMMENTS 06/22/16 14:00 Potassium Phosphate 30 mmol/ Sodium Chloride 260 ml @ 42 mls/hr UNSCH PRN IV SEE LABEL COMMENTS 06/22/16 14:00 06/22/16 16:05 Sodium Chloride 1,000 ml @ 125 mls/hr Q8H IV 06/22/16 17:30 06/24/16 14:48 Vasopressin/ Dextrose (Pitressin Inj/ D5W 100 ml Inj) 100 ml @ 0 mls/hr Q0M IV 06/22/16 17:20 06/23/16 23:16 Protein (Beneprotein Powder) 2 pack TID G-TUBE 06/23/16 18:00 06/24/16 13:00 (Deanna Rodriguez) Current Medications Current Medications IV Flush 2 ml 2 ml UNSCH PRN IVF FLUSH AFTER USING IV ACCESS; Start 06/21/16 at 08:00; Stop 06/21/16 at 14:04; Status DC Sodium Chloride 1,000 ml @ 999 mls/hr BOLUS ONCE IV Last administered on 06/21 08:20; Start 06/21/16 at 08:00; Stop 06/21/16 at 09:00; Status DC Sodium Chloride 1,000 ml @ 999 mls/hr BOLUS ONCE IV Last administered on 06/21 09:11; Start 06/21/16 at 09:15; Stop 06/21/16 at 10:17; Status DC Dopamine HCl/ Dextrose (DOPamine INJ PREMIX) 500 ml @ 0 mls/hr TITRATE IV Last administered on 06/21/16 09:10; Start 06/21/16 at 09:15; Stop 06/21/16 at 14:04 ; Status DC Terbutaline Sulfate 1 mg 1 mg UNSCH PRN SQ For Extravasation; Start 06/21/16 at 09:15 Sodium Bicarbonate/ Sterile Water (Sodium Bicarbonate 8.4% Inj/Sterile Water For Inj) 1,000 ml @ 150 mls/hr Q6H40M IV Last administered on 06/21/16 09:39 ; Start 06/21/16 at 09:15; Status Hold Sodium Bicarbonate (Sodium Bicarbonate 8.4% Inj) 50 meq ONCE ONCE IV PUSH Last administered on 06/21/16 09:40; Start 06/21/16 at 09:30; Stop 06/21/16 at 09:31; Status DC Sodium Bicarbonate (Sodium Bicarbonate 8.4% Inj) 50 meq ONCE ONCE IV PUSH Last administered on 06/21/16 09:40; Start 06/21/16 at 09:30; Stop 06/21/16 at 09:31; Status DC Sodium Bicarbonate 50 meq 50 meq ONCE ONCE IV PUSH Last administered on 09:40; Start 06/21/16 at 09:30; Stop 06/21/16 at 09:31; Status DC Sodium Chloride (NS 1000 ml Inj) 1,000 ml @ 185 mls/hr Q5H25M IV Last administered on 06/22/16 05:08; Start 06/21/16 at 09:56; Stop 06/22/16 at 17:21 ; Status DC IV Flush (NS Flush) 2 ml UNSCH PRN IV FLUSH FLUSH AFTER USING IV ACCESS; Start 06/21/16 at 10:00 IV Flush (NS Flush) 2 ml BID IV FLUSH Last administered on 06/24/16 08:17; Start 06/21/16 at 21:00 Acetaminophen (Tylenol) 650 mg Q6H PRN PO PAIN 1-10 AND/OR FEVER >101F; Start 06/21/16 at 10:00 Morphine Sulfate (Morphine Inj) 2 mg Q2H PRN IV PAIN SCALE 6 TO 10; Start 06/21 at 10:00 Famotidine (Pepcid Inj) 20 mg Q12HR IV PUSH Last administered on 06/21/16 19: 43; Start 06/21/16 at 21:00; Stop 06/22/16 at 09:25; Status DC Lorazepam (Ativan Inj) 1 mg Q1H PRN IV Agitation/Sedation Last administered on 06/24/16 08:18; Start 06/21/16 at 10:00 Artificial Tears (Tears Naturale Opth Soln) 1 drop TID EACH EYE Last administered on 06/23/16 17:52; Start 06/21/16 at 13:00 Ondansetron HCl (Zofran Inj) 4 mg Q6H PRN IV NAUSEA OR VOMITING; Start at 10:00 Metoclopramide HCl (Reglan Inj) 10 mg Q6H PRN IV NAUSEA OR VOMITING; Start 01/28 at 10:00 Docusate Sodium (Colace Liq) 100 mg Q12H G-TUBE ; Start 06/21/16 at 10:00 Albuterol/ Ipratropium (Duoneb Neb) 1 ampule Q2HR NEB PRN INH WHEEZING; Start 06/21/16 at 10:00 Miscellaneous Information 1 Q361D XX ; Start 06/21/16 at 10:00 Chlorhexidine Gluconate (Chlorhexidine 2% Cloth) 3 pack Taper DAILY@04 TOP Last administered on 06/23/16 04:00; Start 06/22/16 at 04:00; Stop 06/18/17 at 03:59 Chlorhexidine Gluconate 3 pack 3 pack UNSCH PRN [facility]; Start at 10:00 Dopamine HCl/ Dextrose (DOPamine INJ PREMIX) 500 ml @ 0 mls/hr TITRATE IV Last administered on 06/24/16 11:49; Start 06/21/16 at 10:15 Terbutaline Sulfate 1 mg 1 mg UNSCH PRN SQ For Extravasation; Start 06/21/16 at 10:15 Mannitol (Osmitrol Inj) 450 ml @ 500 mls/hr Q54M ONCE IV Last administered on 06/21/16 13:37; Start 06/21/16 at 13:30; Stop 06/21/16 at 14:23; Status DC Famotidine 10 mg 10 mg Q12HR IV PUSH Last administered on 06/24/16 08:17; Start 06/22/16 at 21:00 Potassium Chloride 100 ml @ 50 mls/hr Q2H PRN IV For Potassium 2.8 - 3.2 mEq/ L Last administered on 06/22/16 16:02; Start 06/22/16 at 14:00 Potassium Chloride 100 ml @ 50 mls/hr Q2H PRN IV For Potassium 2.8 - 3.2 mEq/L ; Start 06/22/16 at 14:00 Potassium Chloride 100 ml @ 25 mls/hr UNSCH PRN IV For Potassium 3.3 - 3.5 mEq /L; Start 06/22/16 at 14:00 Potassium Chloride 100 ml @ 50 mls/hr Q2H PRN IV For Potassium 3.3 - 3.5 mEq/L ; Start 06/22/16 at 14:00 Magnesium Sulfate/ Sodium Chloride (Magnesium Sulfate Inj/NS Inj) 100 ml @ 50 mls/hr UNSCH PRN IV For Magnesium 0.9 - 1.1 mg/dL; Start 06/22/16 at 14:00 Magnesium Oxide 800 mg 800 mg UNSCH PRN PO For Magnesium 1.2 - 1.6 mg/dL; Start 06/22/16 at 14:00 Magnesium Sulfate/ Sodium Chloride (Magnesium Sulfate Inj/NS Inj) 100 ml @ 50 mls/hr UNSCH PRN IV For Magnesium 1.2 - 1.6 mg/dL; Start 06/22/16 at 14:00 Potassium Phosphate 2000 mg 2,000 mg Q4H PRN PO For Phosphorus < 2.5 mg/dL; Start 06/22/16 at 14:00 Sodium Phosphate/ Sodium Chloride (Sodium Phosphate Inj/NS 250 ml Inj) 250 ml @ 42 mls/hr UNSCH PRN IV For Phosphorus < 2.5 mg/dL; Start 06/22/16 at 14:00 Potassium Phosphate 2000 mg 2,000 mg UNSCH PRN PO/TUBE SEE LABEL COMMENTS; Start 06/22/16 at 14:00 Potassium Phosphate 30 mmol/ Sodium Chloride 260 ml @ 42 mls/hr UNSCH PRN IV SEE LABEL COMMENTS Last administered on 06/22/16 16:05; Start 06/22/16 at 14:00 Sodium Chloride 1,000 ml @ 125 mls/hr Q8H IV Last administered on 06/24/16 14 :48; Start 06/22/16 at 17:30 Vasopressin/ Dextrose (Pitressin Inj/ D5W 100 ml Inj) 100 ml @ 0 mls/hr Q0M IV Last administered on 06/23/16 23:16; Start 06/22/16 at 17:20 Protein (Beneprotein Powder) 2 pack TID G-TUBE Last administered on 06/24/16 13:00; Start 06/23/16 at 18:00 (Quentin Matamoros MD) Medical Decision Making MDM Remarks 65 year old female with anoxic brain injury posterior fossa hematoma and subarachnoid hemorrhage (Deanna Rodriguez) MDM Remarks Last Impressions Chest X-Ray 06/21/16 0752 Signed Impressions: Service Date/Time: Tuesday, June 21, 2016 07:55 - CONCLUSION: Perihilar interstitial/alveolar prominence. Mild air space disease left lung base. Satisfactory position of endotracheal and nasogastric tubes. [place] MD Head CT 06/21/16 0000 Signed Impressions: Service Date/Time: Tuesday, June 21, 2016 08:39 - CONCLUSION: Large parenchymal hemorrhage of the left cerebellar hemisphere with midline shift and mass effect on the brainstem. There is a large amount of posterior fossa and supratentorial subarachnoid blood. Deondre Coronado MD (Quentin Matamoros MD) Plan Plan Remarks very poor clinical exam palliative care following (Deanna Rodriguez) Attending Statement Continue neuro checks. prognosis is very poor. paliative care and recommend hospice Respiratory failure. Continue mechanical ventilation in assist control mode of ventilation, pulmonary toilette, nasotracheal suction, and breathing treatments with nebulizers. PT and OT eval Nutrition. NPO Renal. monitor closely urine output, BUN and creatinine Endocrine. Monitor serial Acu checks and SSI for tight control ID monitor for signs of infection Protonix for stress ulcer prophylaxis Nikita hose and SCD's for DVT prophylaxis The exam, history, and the medical decision-making described in the above note were completed with the assistance of the mid-level provider. I reviewed and agree with the findings presented. I attest that I had a [id number] encounter with the patient on the same day, and personally performed and documented my assessment and findings in the medical record. (Quentin Matamoros MD) Deanna Rodriguez Jun 24, 2016 16:46 Quentin Matamoros MD Jun 24, 2016 16:52
[2016-06-24] MEDS: VASOPRESSIN INJ 40 UNITS in DEXTROSE 5% IN WATER 100ML INJ 98 ML IV SCH ×2 (17:06)
[2016-06-25] VITALS (11 sets, daily range): BP systolic 65–125; BP diastolic 40–62; PULSE 112–117; RESP 12; TEMP 98.7–99.3; O2SAT 89–97
[2016-06-25] MEDS: SODIUM CHLOR 0.45% 1000 ML INJ 1,000 ML IV SCH ×3 (01:30→14:17)
[2016-06-25] MEDS: DOPamine INJ PREMIX 500 ML IV SCH ×3 (01:40→11:00)
[2016-06-25 03:47] LABS: HEMATOCRIT 31.6 % (35.0-46.0); MEAN CELL VOLUME 88.1 FL (80.0-100.0); MEAN CORPUSCULAR HEMOGLOBIN 28.7 PG (27.0-34.0); MEAN CORPUSCULAR HGB CONC 32.6 % (32.0-36.0); PLATELET COUNT 97 TH/MM3 (150-450); RED BLOOD COUNT 3.59 MIL/MM3 (4.00-5.30); RED CELL DISTRIBUTION WIDTH 13.7 % (11.6-17.2); WHITE BLOOD COUNT 6.5 TH/MM3 (4.0-11.0)
[2016-06-25 03:53] LABS: HEMO FLAGS AUTO DIFF
[2016-06-25] MEDS: CHLORHEXIDINE GLUCONATE 2 % 1 PACK (2 CLOTHS) TOP SCH (04:00)
[2016-06-25 04:18] LABS: ALKALINE PHOSPHATASE 130 U/L (45-117); ALT (GPT) 148 U/L (10-53); ANION GAP 9 MEQ/L (5-15); AST (GOT) 56 U/L (15-37); BICARBONATE 24.5 MEQ/L (21.0-32.0); BLOOD UREA NITROGEN 13 MG/DL (7-18); CHLORIDE 102 MEQ/L (98-107); GLOMERULAR FILTRATION RATE 55 ML/MIN (>89); POTASSIUM 4.2 MEQ/L (3.5-5.1); SODIUM (NA) 135 MEQ/L (136-145); TOTAL BILIRUBIN ADULT 0.5 MG/DL (0.2-1.0)
--- NOTE | 2016-06-25 04:53 | RADRPT ---
EXAM DATE/TIME: 06/25/2016 03:53 [facility] COMPARISON: CHEST SINGLE AP, June 24, 2016, 4:43. INDICATIONS : Respiratory distress. MEDICAL HISTORY : None. SURGICAL HISTORY : None. ENCOUNTER: Subsequent ACUITY: 4 - 6 days PAIN SCORE: Non-responsive. LOCATION: Bilateral chest FINDINGS: Single AP view of the chest. Endotracheal tube, nasogastric tube, right subclavian central venous cat heter remain in place. Side-port of the nasogastric tube is in the distal esophagus. Bilateral pulmon ni parenchymal opacity and small bilateral pleural effusions unchanged. Cardiomediastinal silhouette unchanged. No evidence of pneumothorax. CONCLUSION: No significant change in bilateral lower lung predominant parenchymal opacity and small bilateral ple ural effusions. Jean-Paul Mata MD on June 25, 2016 at 4:50 Board Certified Radiologist. This report was verified electronically.
[2016-06-25] MEDS: VASOPRESSIN INJ 40 UNITS in DEXTROSE 5% IN WATER 100ML INJ 98 ML IV SCH ×2 (06:25)
[2016-06-25 07:13] LABS: BANDS 7 % (0-6); DOHLE BODIES PRESENT (NONE SEEN); EOSINOPHILS 5 % (0-4); NEUTROPHIL # MANUAL DIFF 4.6 TH/MM3 (1.8-7.7); PLATELET ESTIMATE SMEAR LOW (NORMAL); PLATELET MORPHOLOGY NORMAL (NORMAL); POLYS (SEG NEUTROPHILS) 64 % (16-70); SCAN/DIFF FINAL DIFF MANUAL; WBC DIFF SAMPLE 100
[2016-06-25] MEDS: ARTIFICIAL TEARS OPTH SOLN 15 ML BTL EACH EYE SCH ×3 (09:00→18:00)
[2016-06-25] MEDS: SODIUM CHLORIDE 0.9% FLUSH 5 ML FLUSH IV FLUSH SCH (09:23)
[2016-06-25] MEDS: BENEPROTEIN POWDER 1 PACK G-TUBE SCH ×3 (09:24→18:00)
[2016-06-25] MEDS: DOCUSATE SODIUM 100 MG/10 ML UDC G-TUBE SCH (09:24)
[2016-06-25] MEDS: FAMOTIDINE 20 MG/2 ML VIAL IV PUSH SCH (09:24)
--- NOTE | 2016-06-25 11:07 | HHI.HCPN ---
Reason for visit a. To assist with evaluation and management of symptoms including: Encephalopathy, possible pain b. To assist medical decision maker(s) with: better understanding of current medical conditions; weighing benefits/burdens of medical treatment options; making medical treatment decisions. . Subjective/Interval History Pt doing clinically worse. On dopamine, but hypotensive. Pt is declining. Brought [facility] 06/21/2016. This 65-year-old female, with underlying schizophrenia and chronic knee pain, was found on the floor and cardiac arrest at home by her mother. The patient's mother and aunt report that the patient had not had any change in her usual health recently other than some weight cane over the past year or 2. She had difficulty getting around because of chronic knee pain/arthritis, but had had no recent change in mental status. The amount of downtime on the floor prior to being found is unknown and cannot be known, as the mother found the patient after the mother got out of bed this morning. The patient's aunt is present this week from [place], and she initiated CPR and called 911. Paramedics arrived to find the patient in asystole, but continued resuscitation efforts with intubation and 2 rounds of medication, then obtaining a return of spontaneous circulation. The patient remained unresponsive and was brought to the emergency department. Findings in the emergency department included: * Unresponsive * Temp 97.7, pulse 88, respirations 16 with the ventilator, blood pressure 68/46 * White count 10.2, hemoglobin 10.1 * Sodium 145, creatinine 1.25, albumin 2.4 * Troponin 0.16 * Initial ABG included pH 7.14 * Urine drug screen negative * Chest x-ray with bilateral infiltrates * CT brain scan with hemorrhage, including a large amount of subarachnoid blood , and a 3 x 5.2 cm left cerebellar hemorrhage, possibly a mass. There was a 9 mm left to right shift of the cerebellum, with mass effect on the brainstem. In the emergency department, the patient was placed on dopamine because of the persistent hypotension. She has remained completely unresponsive. The patient's maternal aunt, Renée Duff, is in town from [place] and staying at the patient's home with the patient's mother, and she is helpful in discussing the medical issues and choices with the patient's elderly mother. Palliative Care was consulted to assist with symptom management, and to enter into discussions with the patient's mother and aunt regarding the severity of the current condition, the prognosis, and the benefits and burdens of the various treatment options. . Family/friend interactions Ms. Duff (pt's aunt) was able to speak with Ms. Magali Meeks (pt's proxy/mom) . Pt's son confirms it. I spoke with pt today. She remembers our conversation and still say "Keep the tubes in." I updated the pt's Mom and pt' s brother, and state pt is declining. Pt's brother says " I can't change her mind." Advance Directives Living Will: Never completed Health Care Surrogate: Never completed Durable Power of Community Support Associate: Never completed Objective Vital Signs Date Time Temp Pulse Resp B/P Pulse Ox O2 Delivery O2 Flow Rate FiO2 06/25/16 08:00 99.3 117 12 93/55 95 06/25/16 08:00 40 06/25/16 07:25 95 40 06/25/16 07:00 116 06/25/16 07:00 95 Mechanical Ventilator 40 06/25/16 04:00 99.2 112 12 100/61 97 06/25/16 04:00 40 06/25/16 03:47 97 40 06/25/16 00:00 98.7 114 12 109/62 96 06/25/16 00:00 40 06/24/16 23:19 96 40 06/24/16 23:00 114 06/24/16 20:00 98.8 110 12 108/61 97 06/24/16 20:00 97 Mechanical Ventilator 40 06/24/16 20:00 40 06/24/16 17:10 96 40 06/24/16 16:00 98.0 107 12 131/67 97 06/24/16 16:00 40 06/24/16 15:00 106 06/24/16 12:24 97 40 06/24/16 12:00 40 06/24/16 12:00 98.4 108 12 88/52 96 Physical Exam CONSTITUTIONAL/GENERAL: This is an adequately nourished patient, in no apparent distress. TUBES/LINES/DRAINS: Left subclavian line, Jha catheter, ET tube SKIN: No jaundice, rashes, or lesions. Ecchymoses on upper extremities. No wounds seen anteriorly. Skin temperature appropriate. Not diaphoretic. HEAD: Atraumatic. Normocephalic. EYES: Pupils equal and round but I can see no reactivity with light. ENT: Unable to assess hearing due to her clinical condition. Nose without bleeding or purulent drainage. NECK: Trachea midline. Supple, nontender. No palpable thyroid enlargement or nodularity. CARDIOVASCULAR: Regular rate and rhythm without murmurs, gallops, or rubs. No JVD. Peripheral pulses symmetric. RESPIRATORY/CHEST: Symmetric, unlabored respirations on the ventilator. Scattered rales bilateral. GASTROINTESTINAL: Abdomen soft, nondistended. No hepato-splenomegaly, or palpable masses. No guarding. Bowel sounds present. GENITOURINARY: Without palpable bladder distension. Jha catheter in place. MUSCULOSKELETAL: Extremities without clubbing, cyanosis, or edema. No calf tenderness. No mottling or clubbing. LYMPHATICS: No palpable cervical or supraclavicular adenopathy. NEUROLOGICAL: Unresponsive to voice and to tactile stimulation including painful stimulation. PSYCHIATRIC: Unable to assess due to clinical condition . Diagnostic Tests Laboratory Laboratory Tests Test 06/22/16 06/23/16 06/23/16 06/24/16 23:35 04:00 14:15 03:45 Potassium Level 4.4 MEQ/L 4.2 MEQ/L 4.3 MEQ/L (3.5-5.1) (3.5-5.1) (3.5-5.1) White Blood Count 11.4 TH/MM3 10.3 TH/MM3 (4.0-11.0) (4.0-11.0) Red Blood Count 3.89 MIL/MM3 3.63 MIL/MM3 (4.00-5.30) (4.00-5.30) Hemoglobin 11.0 GM/DL 10.3 GM/DL (11.6-15.3) (11.6-15.3) Hematocrit 34.8 % 32.3 % (35.0-46.0) (35.0-46.0) Mean Corpuscular Volume 89.5 FL 89.0 FL (80.0-100.0) (80.0-100.0) Mean Corpuscular Hemoglobin 28.2 PG 28.3 PG (27.0-34.0) (27.0-34.0) Mean Corpuscular Hemoglobin 31.5 % 31.8 % Concent (32.0-36.0) (32.0-36.0) Red Cell Distribution Width 14.0 % 14.0 % (11.6-17.2) (11.6-17.2) Platelet Count 190 TH/MM3 117 TH/MM3 (150-450) (150-450) Mean Platelet Volume 8.3 FL 8.0 FL (7.0-11.0) (7.0-11.0) Neutrophils (%) (Auto) 69.4 % 74.1 % (16.0-70.0) (16.0-70.0) Lymphocytes (%) (Auto) 18.0 % 14.5 % (9.0-44.0) (9.0-44.0) Monocytes (%) (Auto) 6.9 % (0.0-8.0) 5.0 % (0.0-8.0) Eosinophils (%) (Auto) 5.4 % (0.0-4.0) 5.7 % (0.0-4.0) Basophils (%) (Auto) 0.3 % (0.0-2.0) 0.7 % (0.0-2.0) Neutrophils # (Auto) 8.0 TH/MM3 7.7 TH/MM3 (1.8-7.7) (1.8-7.7) Lymphocytes # (Auto) 2.1 TH/MM3 1.5 TH/MM3 (1.0-4.8) (1.0-4.8) Monocytes # (Auto) 0.8 TH/MM3 0.5 TH/MM3 (0-0.9) (0-0.9) Eosinophils # (Auto) 0.6 TH/MM3 0.6 TH/MM3 (0-0.4) (0-0.4) Basophils # (Auto) 0.0 TH/MM3 0.1 TH/MM3 (0-0.2) (0-0.2) CBC Comment DIFF FINAL AUTO DIFF Differential Comment FINAL DIFF MANUAL Sodium Level 165 MEQ/L 147 MEQ/L (136-145) (136-145) Chloride Level 130 MEQ/L 115 MEQ/L (98-107) (98-107) Carbon Dioxide Level 28.4 MEQ/L 24.3 MEQ/L (21.0-32.0) (21.0-32.0) Anion Gap 7 MEQ/L (5-15) 8 MEQ/L (5-15) Blood Urea Nitrogen 20 MG/DL (7-18) 15 MG/DL (7-18) Creatinine 1.68 MG/DL 1.27 MG/DL (0.50-1.00) (0.50-1.00) Estimat Glomerular Filtration 37 ML/MIN (>89) 51 ML/MIN (>89) Rate Random Glucose 152 MG/DL 168 MG/DL (74-106) (74-106) Calcium Level 7.8 MG/DL 8.0 MG/DL (8.5-10.1) (8.5-10.1) Phosphorus Level 4.0 MG/DL 3.8 MG/DL (2.5-4.9) (2.5-4.9) Magnesium Level 2.1 MG/DL 1.6 MG/DL (1.5-2.5) (1.5-2.5) Total Bilirubin 0.3 MG/DL 0.4 MG/DL (0.2-1.0) (0.2-1.0) Aspartate Amino Transf 139 U/L (15-37) 74 U/L (15-37) (AST/SGOT) Alanine Aminotransferase 269 U/L (10-53) 203 U/L (10-53) (ALT/SGPT) Alkaline Phosphatase 84 U/L (45-117) 97 U/L (45-117) Total Protein 5.7 GM/DL 5.7 GM/DL (6.4-8.2) (6.4-8.2) Albumin 2.0 GM/DL 1.9 GM/DL (3.4-5.0) (3.4-5.0) Urine Specific [place] 1.009 (1.002-1.035) Differential Total Cells 100 Counted Neutrophils % (Manual) 31 % (16-70) Band Neutrophils % 51 % (0-6) Lymphocytes % 6 % (9-44) Monocytes % 3 % (0-8) Eosinophils % 2 % (0-4) Neutrophils # (Manual) 9.2 TH/MM3 (1.8-7.7) Metamyelocytes 7 % (0-1) Toxic Granulation 1+ (NORMAL) Dohle Bodies PRESENT (NONE SEEN) Platelet Estimate LOW (NORMAL) Platelet Morphology Comment NORMAL (NORMAL) Test 06/24/16 06/25/16 05:10 03:30 Blood Gas Puncture Site RT BRACHIAL Blood Gas Patient Temperature 98.6 Blood Gas HCO3 23 mmol/L (22-26) Blood Gas Base Excess -3.5 mmol/L (-2-2) Blood Gas Oxygen Saturation 94 % (90-100) Arterial Blood pH 7.24 (7.380-7.420) Arterial Blood Partial 56 mmHg (38-42) Pressure CO2 Arterial Blood Partial 85 mmHg Pressure O2 (61-120) Arterial Blood Oxygen Content 13.8 Vol % (12.0-20.0) Arterial Blood 0.9 % (0-4) Carboxyhemoglobin Arterial Blood Methemoglobin 1.4 % (0-2) Blood Gas Hemoglobin 10.4 G/DL (12.0-16.0) Oxygen Delivery Device VENTILATOR Blood Gas Ventilator Setting SEE COMMENT Blood Gas Inspired Oxygen 40 % White Blood Count 6.5 TH/MM3 (4.0-11.0) Red Blood Count 3.59 MIL/MM3 (4.00-5.30) Hemoglobin 10.3 GM/DL (11.6-15.3) Hematocrit 31.6 % (35.0-46.0) Mean Corpuscular Volume 88.1 FL (80.0-100.0) Mean Corpuscular Hemoglobin 28.7 PG (27.0-34.0) Mean Corpuscular Hemoglobin 32.6 % Concent (32.0-36.0) Red Cell Distribution Width 13.7 % (11.6-17.2) Platelet Count 97 TH/MM3 (150-450) Mean Platelet Volume 8.4 FL (7.0-11.0) Neutrophils (%) (Auto) % (16.0-70.0) Lymphocytes (%) (Auto) % (9.0-44.0) Monocytes (%) (Auto) % (0.0-8.0) Eosinophils (%) (Auto) % (0.0-4.0) Basophils (%) (Auto) % (0.0-2.0) Neutrophils # (Auto) TH/MM3 (1.8-7.7) Lymphocytes # (Auto) TH/MM3 (1.0-4.8) Monocytes # (Auto) TH/MM3 (0-0.9) Eosinophils # (Auto) TH/MM3 (0-0.4) Basophils # (Auto) TH/MM3 (0-0.2) CBC Comment AUTO DIFF Differential Total Cells 100 Counted Neutrophils % (Manual) 64 % (16-70) Band Neutrophils % 7 % (0-6) Lymphocytes % 19 % (9-44) Monocytes % 5 % (0-8) Eosinophils % 5 % (0-4) Neutrophils # (Manual) 4.6 TH/MM3 (1.8-7.7) Differential Comment FINAL DIFF MANUAL Dohle Bodies PRESENT (NONE SEEN) Platelet Estimate LOW (NORMAL) Platelet Morphology Comment NORMAL (NORMAL) Basophilic Stippling MOD (NORMAL) Red Cell Morphology Comment NORMAL (NORMAL) Sodium Level 135 MEQ/L (136-145) Potassium Level 4.2 MEQ/L (3.5-5.1) Chloride Level 102 MEQ/L (98-107) Carbon Dioxide Level 24.5 MEQ/L (21.0-32.0) Anion Gap 9 MEQ/L (5-15) Blood Urea Nitrogen 13 MG/DL (7-18) Creatinine 1.19 MG/DL (0.50-1.00) Estimat Glomerular Filtration 55 ML/MIN (>89) Rate Random Glucose 171 MG/DL (74-106) Calcium Level 8.1 MG/DL (8.5-10.1) Total Bilirubin 0.5 MG/DL (0.2-1.0) Aspartate Amino Transf 56 U/L (15-37) (AST/SGOT) Alanine Aminotransferase 148 U/L (10-53) (ALT/SGPT) Alkaline Phosphatase 130 U/L (45-117) Total Protein 5.6 GM/DL (6.4-8.2) Albumin 1.8 GM/DL (3.4-5.0) Result Diagram: 06/25/16 0330 06/25/16 0330 Imaging Last Impressions Chest X-Ray 06/21/16 0752 Signed Impressions: Service Date/Time: Tuesday, June 21, 2016 07:55 - CONCLUSION: Perihilar interstitial/alveolar prominence. Mild air space disease left lung base. Satisfactory position of endotracheal and nasogastric tubes. [place] MD Head CT 06/21/16 0000 Signed Impressions: Service Date/Time: Tuesday, June 21, 2016 08:39 - CONCLUSION: Large parenchymal hemorrhage of the left cerebellar hemisphere with midline shift and mass effect on the brainstem. There is a large amount of posterior fossa and supratentorial subarachnoid blood. Deondre Coronado MD Procedures INTUBATION 06/21/16 . Assessment and Plan Disease Oriented Problem List: (1) cerebellar and subarachnoid hemorrhage (2) cardiorespiratory arrest, cardiac resuscitation (3) 9 mm left to right shift of the cerebellum, with mass effect on brainstem (4) (highly probable) anoxic brain injury (5) respiratory failure (6) bilateral pulmonary infiltrates, suspected aspiration (7) schizophrenia since age 17, currently being managed with periodic injections of a long-acting medication (8) chronic knee pain, arthritis Symptom Scale: (1) pain 0-10 Scale: Unable to quantify (2) dyspnea 0-10 Scale: Unable to quantify Pertinent Non-Medical Issues Psychosocial: Never , disabled due to schizophrenia, lives in a home with her elderly mother and the patient's brother. Spiritual: She attends services regularly at the [facility]. Legal: The patient lacks capacity for decision making, and she will not regain that capacity. The patient is unmarried and has no children, and her proxy decision maker is her mother. Ethical issues impacting care: None. . Important Contacts Patient's mother: Magali Meeks Home: - Patient's maternal aunt, Renée Duff (VERY HELPFUL) . Prognosis The prognosis is dismal. In addition to the significant hemorrhage and left to right shift of the brainstem, there is an apparent anoxic brain injury. She is currently being supported artificially via mechanical ventilation and pressor agents. She is certainly appropriate for transition to comfort measures and end -of-life care. . Code Status: No Code Plan * DO NOT RESUSCITATE, per patient's mother and aunt Renée on 06/21/16. * DECISION-MAKING: The patient lacks capacity for decision making, and she will not regain that capacity. The patient is unmarried and has no children, and her proxy decision maker is her mother (seems to have some capacity). "I do not want the tubes taken out, and please give her a few days." At least on initial conversation; Pt's mother, is able to recall that pt is on life support , and if pt is taken off, will . * GOALS: The patient's mother and her aunt Renée are in agreement that, when the patient suffers the next cardiac arrest, "we will let her go peacefully ," with no further resuscitation. The patient's mother is not yet ready to address the idea of withdrawal of life support. Aunt Renée Duff (see phone number above) is VERY HELPFUL in the discussions with her sister ( the patient's mother), as she has had experience in the healthcare field and with end-of-life situations in other family members. * Ms. Duff (pt's aunt) was able to speak with Ms. Magali Meeks (pt's proxy/ mom) yesterday. Pt's son confirms it. I spoke with pt's mother/proxy today and also pt's brother, updated both of them about her deteriorating stauts, worseing bp, despite dopamine drip. Again I offered a peaceful transtition for compassionate withdraw. She remembers our conversation and still say "Keep the tubes in." I updated the pt's Mom and pt's brother, and state pt is declining. Pt's brother says " I can't change her mind." * son confirms that pt's mother/proxy does write her own checks and balance her check book. She was able to remember she had a birthday which was 2 days ago. She was able to remember 2/3 object and ao x3. She is able to say when life support is remove "pt will pass away " on a sick patient. Pt's mom keep saying , please "keep the tubes in for a few more days." Explain to her about possible brain or that her daughter is close to it. * Proxy state DNR but continue life support. * SYMPTOMS: The patient is completely unresponsive, and there is no obvious pain or dyspnea at this time. I have no specific medication recommendations. * Palliative Care will continue to follow the patient during this hospitalization. . Time Spent Total Floor Time (mins): 48 Face to Face Time (mins): 35 Attestation To help prompt me to consider important information that might be impacting today's encounter and assessment, information from prior notes written by myself or my colleagues may have been "brought forward" into today's note. My signature on this note, however, is an attestation that I personally performed the exam, history, and/or decision-making noted today, and, unless otherwise indicated, the interactions with patient, family, and staff as well as the review of records all occurred today. I also attest that the listed assessment and stated plan reflect my best clinical judgment today based on the combination of historical information, prior notes, and today's exam/ interactions. When time spent is documented, it refers only to time spent today by the signer, or if indicated, combined time spent today by collaborating physician/nurse practitioner. Richard Warner MD Jun 25, 2016 11:07
--- NOTE | 2016-06-25 13:04 | MG ---
cc: JESSICA CARPENTER Lab No: [id number] Date: 06/25/2016 Age: ___ Sex: F Race: __ INDICATIONS Intubated, hyperventilation not performed, subarachnoid hemorrhage, parenchymal hemorrhage left cerebellum midline shift, mass effect on the brain stem. MEDICATIONS 1. Ativan 2. Vasopressin 3. Dopamine DESCRIPTION The entire recording shows extremely low amplitude background. There is some EKG artifact only. There is no hemisphere asymmetries, no epileptiform or seizure activity is noted. I would say it almost appears to be electrocerebral silence except for some ICU artifact. IMPRESSION Severely abnormal EEG very close to electrocerebral silence. Clinical correlation is needed. MD BECKI Mulligan/JORGE /10:45 AM /1:00 PM
--- NOTE | 2016-06-25 15:17 | HHI.CCPN ---
Subjective Remarks/Hospital Course 65-year-old very unfortunate female presents brought in by EMS as a cardiac arrest. Patient was found unresponsive by family, CPR initiated by her aunt, and EMS arrived and continued CPR. After 2 rounds of epi and CPR, patient regained a pulse and has a sinus rhythm. She was intubated by EMS. However, down time is unknown and there is a very high probability of severe anoxic brain injury. Initial rhythm was asystole SUBJ 06/24: Remains off sedation for several days. GCS remains 3. Apparently apnea test showed spontaneous breathing indicating patient not brain . Brother at the bedside requesting possible withdrawal of life support, if there is no chance of meaningful recovery. 06/25: Unresponsive aside from few spontaneous breaths. Peripheral perfusion is marginal - will need to back off vasopressors and substitute with volume as tolerated. Objective Vital Signs Date Time Temp Pulse Resp B/P Pulse Ox O2 Delivery O2 Flow Rate FiO2 06/25/16 15:00 116 06/25/16 12:00 99.0 12 125/60 94 06/25/16 12:00 45 06/25/16 07:00 Mechanical Ventilator Intake and Output 06/24/16 06/24/16 06/25/16 08:00 16:00 00:00 Intake Total 2032 ml 2120 ml 1994 ml Output Total 800 ml 1000 ml 1250 ml Balance 1232 ml 1120 ml 744 ml Result Diagram: 06/25/16 0330 06/25/16 0330 Imaging Last 24 hours Impressions Chest X-Ray 06/21/16 0752 Signed Impressions: Service Date/Time: Tuesday, June 21, 2016 07:55 - CONCLUSION: Perihilar interstitial/alveolar prominence. Mild air space disease left lung base. Satisfactory position of endotracheal and nasogastric tubes. [place] MD Head CT 06/21/16 0000 Signed Impressions: Service Date/Time: Tuesday, June 21, 2016 08:39 - CONCLUSION: Large parenchymal hemorrhage of the left cerebellar hemisphere with midline shift and mass effect on the brainstem. There is a large amount of posterior fossa and supratentorial subarachnoid blood. Deondre Coronado MD Chest X-Ray 06/21/16 0000 Signed Impressions: Service Date/Time: Tuesday, June 21, 2016 10:03 - CONCLUSION: 1. New right subclavian central venous catheter with tip in the superior vena cava. No pneumothorax or other acute complication demonstrated. 2. Other lines and tubes unchanged as above. 3. Bilateral infiltrates are modestly worse. Deondre Coronado MD Objective Remarks GENERAL: Patient is comatose female. GCS 3 SKIN: Warm and dry. HEAD: Normocephalic. EYES: Pupils are fixed and dilated NECK: Supple, trachea midline. CARDIOVASCULAR: Regular rate and rhythm without murmurs, gallops, or rubs. No JVD. RESPIRATORY: Breath sounds equal bilaterally. No wheezes. GASTROINTESTINAL: Abdomen soft, non-tender, nondistended. BS present, few. No guarding. MUSCULOSKELETAL: No cyanosis, or edema. Marginal perfusion. BACK: Nontender without obvious deformity. NEURO: Intubated, no sedation. Pupils are fixed and dilated. No withdrawal to pain. No spontaneous movements A/P Problem List: (1) Cardiac asystole ICD Code: I46.9 Status: Acute (2) respiratory failure Status: Acute (3) (highly probable) anoxic brain injury Status: Acute (4) cerebellar and subarachnoid hemorrhage Status: Acute Assessment and Plan Respiratory failure - Intubated for an airway protection - Continue mechanical ventilation - Continue duo nebs as needed - No weaning until neurologically improved - Apnea test showed initiation of spontaneous breath Cardiac arrest - Due to large intracranial bleed - Severe Anoxic brain damage - Supportive care Hypernatremia - Probable DI due to brain injury - Free water through NG tube Hypotension - CVP line in place - Dopamine as needed to keep MAP above 65 - IV fluids Brain edema - Onetime mannitol dose in the ED - Supportive care - This is irreversible catastrophic brain damage Intracranial bleed - No coagulopathy - Monitor blood pressure - Not a candidate for surgical procedure due to underlying severe anoxic brain injury - Palliative care consult greatly appreciated, DNR DVT GI prophylaxis - TEDs SCDs Pepcid Overall impression: We'll need to back off vasopressors and substitute volume; hopefully her lungs will tolerate it. Simon Akins MD Jun 25, 2016 15:17
[2016-06-25] MEDS ORDERED: DOPamine INJ PREMIX 500 ML IV SCH (15:30)
--- NOTE | 2016-06-25 17:19 | HHI.NSPN ---
(Deanna Rodriguez) Note Status Status: Progress Note (Deanna Rodriguez) Interval History Interval History This is a 65-year-old female, with underlying schizophrenia and chronic knee pain, was found on the floor and cardiac arrest at home by her mother. The patient's mother and aunt report that the patient had not had any change in her usual health until recently. She has had difficulty getting around because of chronic knee pain/arthritis. She was found unresponsive, comatose on the floor. The amount of downtime on the floor prior to being found is unknown and cannot be known, as the mother found the patient after the mother got out of bed this morning. EMS arrived to find the patient in asystole, she was resuscitated according to the ACLS protocol. Following endotracheal intubation and 2 rounds of medications, return of spontaneous circulation. The patient remained unresponsive and was brought to the emergency department. GCS was 3. CT of the brain show a large posterior fossa hemorrhage. Neurosurgical consultation was requested 06/22. remains comatose. pupils duilated and fixed. GCS of 3 06/24: no sedation, no eye opening, pupils remains dilated and unresponsive. 06/25: pt seen this morning during morning rounds, intubated, comatose, pupils remains dilated and fixed (Deanna Rodriguez) Labs, Micro, & Vital Signs Results Date Time Temp Pulse Resp B/P Pulse Ox O2 Delivery O2 Flow Rate FiO2 06/25/16 16:13 89 50 06/25/16 16:00 98.9 113 12 65/40 94 06/25/16 16:00 45 06/25/16 15:00 116 06/25/16 12:00 99.0 117 12 125/60 94 06/25/16 12:00 45 06/25/16 11:58 94 45 06/25/16 08:00 99.3 117 12 93/55 95 06/25/16 08:00 40 06/25/16 07:25 95 40 06/25/16 07:00 116 06/25/16 07:00 95 Mechanical Ventilator 40 06/25/16 04:00 99.2 112 12 100/61 97 06/25/16 04:00 40 06/25/16 03:47 97 40 06/25/16 00:00 98.7 114 12 109/62 96 06/25/16 00:00 40 06/24/16 23:19 96 40 06/24/16 23:00 114 06/24/16 20:00 98.8 110 12 108/61 97 06/24/16 20:00 97 Mechanical Ventilator 40 06/24/16 20:00 40 06/25/16 07:00 Intake Total 5995 ml Output Total 3150 ml Balance 2845 ml Constitutional Vital Signs Date Time Temp Pulse Resp B/P Pulse Ox O2 Delivery O2 Flow Rate FiO2 06/25/16 16:13 89 50 06/25/16 16:00 98.9 113 12 65/40 94 06/25/16 16:00 45 06/25/16 15:00 116 06/25/16 12:00 99.0 117 12 125/60 94 06/25/16 12:00 45 06/25/16 11:58 94 45 06/25/16 08:00 99.3 117 12 93/55 95 06/25/16 08:00 40 06/25/16 07:25 95 40 06/25/16 07:00 116 06/25/16 07:00 95 Mechanical Ventilator 40 06/25/16 04:00 99.2 112 12 100/61 97 06/25/16 04:00 40 06/25/16 03:47 97 40 06/25/16 00:00 98.7 114 12 109/62 96 06/25/16 00:00 40 06/24/16 23:19 96 40 06/24/16 23:00 114 06/24/16 20:00 98.8 110 12 108/61 97 06/24/16 20:00 97 Mechanical Ventilator 40 06/24/16 20:00 40 06/25/16 07:00 Intake Total 5995 ml Output Total 3150 ml Balance 2845 ml (Deanna Rodriguez) Review of Systems/Exam Exam She is intubated, no IV sedation. Does not open eyes. Cranial Nerves: Pupils equal, round, 6mm dilated and fixed. Eyes appear non- conjugated. The patient has no corneal reflex, no oculocephalic. She has no gag reflex. Cervical Spine: Her neck is soft, supple, without nuchal rigidity. Motor: No response to pain, not following commands for motor testing Reflexes: Deep tendon reflexes are absent throughout. Plantars silent b/l. Sensory: On examination there is no response to painful stimuli Cerebellar: Examination cannot be adequately assessed due to the patient's neurological condition. (Deanna Rodriguez) Exam Intubated, no IV sedation. Does not open eyes. Cranial Nerves: Pupils equal, round, 6mm dilated and fixed. Eyes appear non- conjugated. The patient has no corneal reflex, no oculocephalic. She has no gag reflex. Cervical Spine: Her neck is soft, supple, without nuchal rigidity. Motor: No response to pain, not following commands for motor testing Reflexes: Deep tendon reflexes are absent throughout. Plantars silent b/l. Sensory: On examination there is no response to painful stimuli Cerebellar examination is not possible due to her neurological condition Cerebellar: Examination cannot be adequately assessed due to the patient's neurological condition. (Quentin Matamoros MD) Medications Current Medications Current Medications Medications (Trade) Dose Ordered Sig/Gee Route PRN Reason Start Time Stop Time Status Last Admin Dose Admin Terbutaline Sulfate 1 mg 1 mg UNSCH PRN SQ For Extravasation 06/21/16 09:15 Sodium Bicarbonate/ Sterile Water (Sodium Bicarbonate 8.4% Inj/Sterile Water For Inj) 1,000 ml @ 150 mls/hr Q6H40M IV 06/21/16 09:15 Hold 06/21/16 09:39 IV Flush (NS Flush) 2 ml UNSCH PRN IV FLUSH FLUSH AFTER USING IV ACCESS 06/21/16 10:00 IV Flush (NS Flush) 2 ml BID IV FLUSH 06/21/16 21:00 06/25/16 09:23 Acetaminophen (Tylenol) 650 mg Q6H PRN PO PAIN 1-10 AND/OR FEVER >101F 06/21/16 10:00 Morphine Sulfate (Morphine Inj) 2 mg Q2H PRN IV PAIN SCALE 6 TO 10 06/21/16 10:00 Lorazepam (Ativan Inj) 1 mg Q1H PRN IV Agitation/Sedation 06/21/16 10:00 06/24/16 08:18 Artificial Tears (Tears Naturale Opth Soln) 1 drop TID EACH EYE 06/21/16 13:00 06/23/16 17:52 Ondansetron HCl (Zofran Inj) 4 mg Q6H PRN IV NAUSEA OR VOMITING 06/21/16 10:00 Metoclopramide HCl (Reglan Inj) 10 mg Q6H PRN IV NAUSEA OR VOMITING 06/21/16 10:00 Docusate Sodium (Colace Liq) 100 mg Q12H G-TUBE 06/21/16 10:00 06/25/16 09:24 Miscellaneous Information 1 [id number] XX 06/21/16 10:00 Chlorhexidine Gluconate (Chlorhexidine 2% Cloth) 3 pack Taper DAILY@04 TOP 06/22/16 04:00 06/18/17 03:59 06/25/16 04:00 Chlorhexidine Gluconate (Chlorhexidine 2% Cloth) 3 pack UNSCH PRN TOP HYGIENIC CARE 06/21/16 10:00 Terbutaline Sulfate (Brethine Inj) 1 mg UNSCH PRN SQ For Extravasation 06/21/16 10:15 Famotidine 10 mg 10 mg Q12HR IV PUSH 06/22/16 21:00 06/25/16 09:24 Potassium Chloride 100 ml @ 50 mls/hr Q2H PRN IV For Potassium 2.8 - 3.2 mEq/L 06/22/16 14:00 06/22/16 16:02 Potassium Chloride 100 ml @ 50 mls/hr Q2H PRN IV For Potassium 2.8 - 3.2 mEq/L 06/22/16 14:00 Potassium Chloride 100 ml @ 25 mls/hr UNSCH PRN IV For Potassium 3.3 - 3.5 mEq/L 06/22/16 14:00 Potassium Chloride 100 ml @ 50 mls/hr Q2H PRN IV For Potassium 3.3 - 3.5 mEq/L 06/22/16 14:00 Magnesium Sulfate/ Sodium Chloride (Magnesium Sulfate Inj/NS Inj) 100 ml @ 50 mls/hr UNSCH PRN IV For Magnesium 0.9 - 1.1 mg/dL 06/22/16 14:00 Magnesium Oxide 800 mg 800 mg UNSCH PRN PO For Magnesium 1.2 - 1.6 mg/dL 06/22/16 14:00 Magnesium Sulfate/ Sodium Chloride (Magnesium Sulfate Inj/NS Inj) 100 ml @ 50 mls/hr UNSCH PRN IV For Magnesium 1.2 - 1.6 mg/dL 06/22/16 14:00 Potassium Phosphate 2000 mg 2,000 mg Q4H PRN PO For Phosphorus < 2.5 mg/dL 06/22/16 14:00 Sodium Phosphate/ Sodium Chloride (Sodium Phosphate Inj/NS 250 ml Inj) 250 ml @ 42 mls/hr UNSCH PRN IV For Phosphorus < 2.5 mg/dL 06/22/16 14:00 Potassium Phosphate 2000 mg 2,000 mg UNSCH PRN PO/TUBE SEE LABEL COMMENTS 06/22/16 14:00 Potassium Phosphate 30 mmol/ Sodium Chloride 260 ml @ 42 mls/hr UNSCH PRN IV SEE LABEL COMMENTS 06/22/16 14:00 06/22/16 16:05 Sodium Chloride (1/2 NS 1000 ml Inj) 1,000 ml @ 125 mls/hr Q8H IV 06/22/16 17:30 06/25/16 14:17 Protein 2 pack 2 pack TID G-TUBE 06/23/16 18:00 06/25/16 13:49 Dopamine HCl/ Dextrose (DOPamine INJ PREMIX) 500 ml @ 0 mls/hr TITRATE IV 06/25/16 15:30 (Deanna Rodriguez) Medical Decision Making MDM Remarks 65 year old female with anoxic brain injury posterior fossa hematoma and subarachnoid hemorrhage (Deanna Rodriguez) Plan Plan Remarks very poor clinical exam recommend comfort care palliative care following (Deanna Rodriguez) Attending Statement Her prognosis is very poor Discussed with her family The exam, history, and the medical decision-making described in the above note were completed with the assistance of the mid-level provider. I reviewed and agree with the findings presented. I attest that I had a [id number] encounter with the patient on the same day, and personally performed and documented my assessment and findings in the medical record. (Quentin Matamoros MD) Deanna Rodriguez Jun 25, 2016 17:19 Quentin Matamoros MD Jun 27, 2016 16:17
--- NOTE | 2016-06-26 08:37 | HHI.DS ---
Discharge Summary Admission Date Jun 21, 2016 at 09:28 Discharge Date: Jun 25, 2016 Admitting Diagnosis intracranial hemorrhage/intubated/status post asystolic code Brief History 65-year-old very unfortunate female presents brought in by EMS as a cardiac arrest. Patient was found unresponsive by family, CPR initiated by her aunt, and EMS arrived and continued CPR. After 2 rounds of epi and CPR, patient regained a pulse and has a sinus rhythm. She was intubated by EMS. However, down time is unknown and there is a very high probability of severe anoxic brain injury. Initial rhythm was asystole. She sustained a severe anoxic brain injury and from subarachnoid hemorrhage and seqellae of cardiac arrest. CBC/BMP: 06/25/16 0330 06/25/16 0330 Significant Findings Laboratory Tests Test 06/24/16 06/24/16 06/25/16 03:45 05:10 03:30 Red Blood Count 3.63 MIL/MM3 3.59 MIL/MM3 (4.00-5.30) (4.00-5.30) Hemoglobin 10.3 GM/DL 10.3 GM/DL (11.6-15.3) (11.6-15.3) Hematocrit 32.3 % 31.6 % (35.0-46.0) (35.0-46.0) Mean Corpuscular Hemoglobin 31.8 % Concent (32.0-36.0) Platelet Count 117 TH/MM3 97 TH/MM3 (150-450) (150-450) Neutrophils (%) (Auto) 74.1 % (16.0-70.0) Eosinophils (%) (Auto) 5.7 % (0.0-4.0) Eosinophils # (Auto) 0.6 TH/MM3 (0-0.4) Band Neutrophils % 51 % (0-6) 7 % (0-6) Lymphocytes % 6 % (9-44) Neutrophils # (Manual) 9.2 TH/MM3 (1.8-7.7) Metamyelocytes 7 % (0-1) Toxic Granulation 1+ (NORMAL) Dohle Bodies PRESENT (NONE PRESENT (NONE SEEN) SEEN) Platelet Estimate LOW (NORMAL) LOW (NORMAL) Sodium Level 147 MEQ/L 135 MEQ/L (136-145) (136-145) Chloride Level 115 MEQ/L (98-107) Creatinine 1.27 MG/DL 1.19 MG/DL (0.50-1.00) (0.50-1.00) Estimat Glomerular Filtration 51 ML/MIN (>89) 55 ML/MIN (>89) Rate Random Glucose 168 MG/DL 171 MG/DL (74-106) (74-106) Calcium Level 8.0 MG/DL 8.1 MG/DL (8.5-10.1) (8.5-10.1) Aspartate Amino Transf 74 U/L (15-37) 56 U/L (15-37) (AST/SGOT) Alanine Aminotransferase 203 U/L (10-53) 148 U/L (10-53) (ALT/SGPT) Total Protein 5.7 GM/DL 5.6 GM/DL (6.4-8.2) (6.4-8.2) Albumin 1.9 GM/DL 1.8 GM/DL (3.4-5.0) (3.4-5.0) Blood Gas Base Excess -3.5 mmol/L (-2-2) Arterial Blood pH 7.24 (7.380-7.420) Arterial Blood Partial 56 mmHg (38-42) Pressure CO2 Blood Gas Hemoglobin 10.4 G/DL (12.0-16.0) Eosinophils % 5 % (0-4) Basophilic Stippling MOD (NORMAL) Alkaline Phosphatase 130 U/L (45-117) Hospital Course 65-year-old very unfortunate female presents brought in by EMS as a cardiac arrest. Patient was found unresponsive by family, CPR initiated by her aunt, and EMS arrived and continued CPR. After 2 rounds of epi and CPR, patient regained a pulse and has a sinus rhythm. She was intubated by EMS. However, down time is unknown and there is a very high probability of severe anoxic brain injury. Initial rhythm was asystole SUBJ 06/24: Remains off sedation for several days. GCS remains 3. Apparently apnea test showed spontaneous breathing indicating patient not brain . Brother at the bedside requesting possible withdrawal of life support, if there is no chance of meaningful recovery. 06/25: Unresponsive aside from few spontaneous breaths. Peripheral perfusion is marginal - will need to back off vasopressors and substitute with volume as tolerated. Pt Condition on Discharge: Deteriorating Discharge Instructions Additional Information 06/25/16 at 2048 hours. Simon Akins MD Jun 26, 2016 08:37
--- NOTE | 2016-06-26 08:39 | DEATH SUM ---
Summary Demographics Date Pronounced : Jun 25, 2016 Time Of : 2009 Pronounced By: Dr. Adolfo Alcaraz Preliminary Cause of : Cardiac arrest Simon Akins MD Jun 26, 2016 08:39
== END 2016-06-25 23:17 | disposition expired | DRG 64 ==
LOC: NEPE 07:49 → NEDA 09:28 → N03B 15:25
PROVIDERS: ADMIT Internal Medicine Critical Care Medicine; ATTEND Internal Medicine Critical Care Medicine
PROC: 5A1955Z Respiratory Ventilation, Greater than 96 Consecutive Hours (ICD-10-PCS; principal; 2016-06-21)
DX: I61.4 Nontraumatic intracerebral hemorrhage in cerebellum (principal); I60.9 Nontraumatic subarachnoid hemorrhage, unspecified; J96.90 Respiratory failure, unspecified, unspecified whether with hypoxia or hypercapnia; I46.9 Cardiac arrest, cause unspecified; G93.6 Cerebral edema; G93.1 Anoxic brain damage, not elsewhere classified; I95.9 Hypotension, unspecified; E87.0 Hyperosmolality and hypernatremia; E87.1 Hypo-osmolality and hyponatremia; R40.2432 Glasgow coma scale score 3-8, at arrival to emergency department; Z66 Do not resuscitate; F20.9 Schizophrenia, unspecified; M25.569 Pain in unspecified knee
CPT/HCPCS: 36600; 51702; 70450; 71010; 80053; 80076; 80307; 81001; 81003; 82140; 82550; 82552; 82805; 82948; 83735; 84100; 84132; 84484; 85007; 85025; 85027; 85610; 85730; 87641; 93005; 94002; 94003; 95819; 96361; 96365; J1265; J2060; J3480; J7030; J7050